=== PATIENT | female | born 1950 | race Caucasian/White ===

== ENCOUNTER 2020-09-17 13:58 | Outpatient (REF) | payer OTHER, SELFPAY ==
[2020-09-17 14:16] LABS: Glucose Urine UA NEG (NEG); Leukocyte Esterase Urine TRACE (NEG); Nitrite Urine NEG (NEG); Specific Gravity - Urine >= 1.030 (1.005-1.025); Urine Blood TRACE (NEG); Urine Ketones 5 MG/DL (NEG); Urine Protein TRACE MG/DL (NEG-TRACE)
[2020-09-17 14:21] LABS: Appearance Urine HAZY; Color Urine YELLOW
[2020-09-17 14:59] LABS: Bacteria Urine TRACE /LPF; Squamous Epithelial Cell Urine 1+ /LPF
== END 2020-09-17 13:59 | disposition home or self-care (01) ==
LOC: HO.LNP 13:58
PROVIDERS: Visit Provider Internal Medicine
DX: N30.00 Acute cystitis without hematuria (principal)
CPT/HCPCS: 81001; 87086

== ENCOUNTER 2020-09-30 10:07 | Outpatient (REF) | payer OTHER, SELFPAY ==
[2020-09-30 10:54] LABS: Glucose Urine UA NEG (NEG); Leukocyte Esterase Urine 1+ (NEG); Nitrite Urine NEG (NEG); PH 6.5 (5.0-8.0); Specific Gravity - Urine 1.015 (1.005-1.025); Urine Blood NEG (NEG); Urine Ketones NEG (NEG); Urine Protein NEG (NEG-TRACE)
[2020-09-30 10:57] LABS: Appearance Urine CLEAR; Color Urine YELLOW
[2020-09-30 11:13] LABS: Bacteria Urine 1+ /LPF; Mucus Urine 1+ /LPF; RBC Urine 0-2 /HPF (0); Squamous Epithelial Cell Urine 1+ /LPF
[2020-09-30 11:14] LABS: Amorphous Sediment Urine 2+ /LPF
== END 2020-09-30 10:08 | disposition home or self-care (01) ==
LOC: HO.LNP 10:07
PROVIDERS: Visit Provider Internal Medicine
DX: N39.0 Urinary tract infection, site not specified (principal)
CPT/HCPCS: 81001; 87086

== ENCOUNTER → 2020-11-14 08:18 | Outpatient (BNVA) | payer OTHER, SELFPAY | PROVIDERS: PCP Internal Medicine; Referring Provider Internal Medicine; Visit Provider Internal Medicine ==

== ENCOUNTER → 2020-11-19 09:03 | Outpatient (REF) | payer OTHER, SELFPAY ==
--- NOTE | 2020-11-19 11:00 | ECG_ITS ---
Hook-up date: 2020-11-19 09:24:00 Duration: 29:37:00 Test Indications: UNSPEC. ATRIAL FLUTTER Medications: 58348 QRS complexes 19 Ventricular ectopics which represent <1 % of total QRS comp. 60 Supraventricular ectopics which represent <1 % of total QRS comp. * Paced QRS complexs which represent % of total QRS comp. VENTRICULAR ECTOPY 19 Isolated 0 Bigeminal Cycles 0 Couplets 0 Runs 0 Beats in Runs * Beats LONGEST at * BPM at :: -- * Beats FASTEST at * BPM at :: -- SUPRAVENTRICULAR ECTOPY 58 Isolated 1 Couplets 0 Runs 0 Beats in Runs * Beats LONGEST at * BPM at :: -- * Beats FASTEST at * BPM at :: -- HEART RATES 47 MIN at 04:26:40 2020-11-20 68 AVG 105 MAX at 09:31:40 2020-11-19 LONGEST RR 1.3280 secs at 20:59:21 2020-11-19 S-T LEVELS Channel 1 - 128 mm at 09:24:00 2020-11-19 - 128 mm at 09:24:00 2020-11-19 Channel 2 - 128 mm at 09:24:00 2020-11-19 - 128 mm at 09:24:00 2020-11-19 Channel 3 - 128 mm at 09:24:00 2020-11-19 - 128 mm at 09:24:00 Basic rhythm Normal sinus rhythm No long pause or profound bradycardia Frequent Sinus bradycardia , 36% of time HR < 60 bpm Rare Premature atrial complexes No sustained Atrial flutter Patient reported symptom of flutter correlated with NSR Referred By: Taurus Grover Overread By: DENISA ECHEVERRIA MD
== END ==
LOC: HO.CARD 09:03
PROVIDERS: PCP Internal Medicine; Referring Provider Internal Medicine; Visit Provider Internal Medicine
DX: I48.92 Unspecified atrial flutter (principal)
CPT/HCPCS: 93226

== ENCOUNTER → 2020-12-18 08:22 | Outpatient (REF) | payer OTHER, SELFPAY ==
--- NOTE | 2020-12-18 08:26 | CA_ITS ---
Transthoracic Echocardiogram Patient (Last, First, Middle): Kiara Solano, Gender: Female Date of : 1950 Age: 70 Procedure Date: 12/18/2020 Procedure Type: Transthoracic Echocardiogram Location: OP Height: 165.1 cm Weight: 79.38 kg BSA: 1.87 m2 Heart Rate: bpm BP: 140 / 70 mmHg Vendor Management Specialist: MI Referring MD: Taurus Grover MD Symptoms: I48.92 - Unspecified atrial flutter Study Quality: Fair ECG Rhythm: Sinus Conclusions: - The left ventricular systolic function is hyperdynamic. The visually estimated ejection fraction is >70%. - There is mild calcification of the aortic valve. - No obvious valvular pathology seen on this study. Findings Left Ventricle Normal left ventricular cavity size. There is mildly increased left ventricular wall thickness. The left ventricular systolic function is hyperdynamic. The visually estimated ejection fraction is >70%. There is no evidence of regional wall motion abnormalities. E/E prime ratio is between 8 and 15 consistent with indeterminate filling pressures. Evidence suggests grade I (mild) diastolic dysfunction. Right Ventricle Normal right ventricular cavity size and systolic function. Atria Both atria are normal in size. Aortic Valve There is a normal trileaflet aortic valve. There is mild calcification of the aortic valve. There is no aortic valve stenosis. There is no aortic valve regurgitation. Mitral Valve The mitral valve appears normal. There is trace mitral valve regurgitation. There is no mitral valve stenosis. Pulmonic Valve The pulmonic valve was not well visualized. There is trace pulmonic valve regurgitation. Tricuspid Valve Normal tricuspid valve structure. There is trace tricuspid valve regurgitation. The right ventricular systolic pressure is 30 mmHg. The pulmonary artery systolic pressure is normal. Great Vessels The aortic annulus, sinuses of valsalva, and asc aorta are normal in size. Venous The inferior vena cava is normal in size and collapses greater than 50% with inspiration. Pericardium/Pleural There is no evidence of pericardial effusion. Prior Study Comparison No significant change compared to prior study dated: 12/29/2016. Recommendations, Care & Conclusions No obvious valvular pathology seen on this study. Measurements 2D Linear Measurements IVSd: 0.97 0.6-0.9/0.6-1.0 cm LVIDd: 4.12 3.9-5.3/4.2-5.9 cm LVIDd Index: 2.20 2.4-3.2/2.2-3.1 cm/m2 LVIDs: 2.85 2.0-3.6 cm LVPWd: 0.94 0.7-1.1 cm Ao Root: 3.20 2.1-3.5 cm LA Diam: 3.70 2.7-3.8/3.0-4.0 cm LAIDs Index: 1.98 1.5-2.3 cm/m2 LV Mass: 155.41 67-162/88-224 g LV Mass Index: 83.11 43-95/49-115 g/m2 LVOT Diam: 2.00 3.0+(-)1.3 cm 2D Systolic Function EF 4C: 65.50 >55% EF 2C: 64.10 >55% EF BiP: 64.40 >55% Mitral Valve MV Pk E: 0.69 MV PK A: 1.15 MV Decel Time: 298.00 E/A: 0.60 E'Lateral: 4.03 E'Medial: 5.66 E/E' Med: 12.20 E/E' Lat: 17.20 PHT: 87.00 MVA PHT: 2.53 Decel [place]: 2.32 Aortic Valve AoV Pk Juan Daniel: 1.87 AoV Mn Juan Daniel: 1.26 AoV VTI: 0.36 AoV Pk Grad: 14.00 Aov Mn Grad: 7.00 OLIVER Cont.VTI: 2.31 LVOT LVOT Pk Juan Daniel: 1.41 LVOT Mn Juan Daniel: 0.81 LVOT VTI: 0.26 LVOT Pk Grad: 8.00 LVOT Mn Grad: 3.00 LVOT Diam: 2.00 LVOT Area: 3.14 Diastolic Function MV Pk E: 0.69 MV Pk A: 1.15 E/A: 0.60 E'Medial: 5.66 E/E' Med: 12.20 E' Laterial: 4.03 E/E' Lat: 17.20 Right Ventricle TAPSE (mm): 2.73 Tricuspid Valve TR Pk Juan Daniel: 2.59 TR Pk Grad: 27.00 RA Press: 3.00 RVSP: 30.00 Great Vessels Aorta Ao Root-2D: 3.20 2.0-3.7 cm Ao Asc: 3.60 2.1-3.4 cm Ao Arch: 2.80 Updated in Other Vendor System with Status of Final Taurus Grover MD electronically signed on 12/20/2020 3:41:52 PM with status of Final
== END ==
LOC: HO.CARD 08:22
PROVIDERS: Visit Provider Internal Medicine
DX: I48.92 Unspecified atrial flutter (principal)
CPT/HCPCS: 93306

== ENCOUNTER 2020-12-19 12:35 | Outpatient (REF) | payer OTHER, SELFPAY ==
[2020-12-19 14:18] LABS: Glucose Urine UA NEG (NEG); Leukocyte Esterase Urine NEG (NEG); Nitrite Urine NEG (NEG); Specific Gravity - Urine 1.025 (1.005-1.025); Urine Blood NEG (NEG); Urine Ketones NEG (NEG); Urine Protein NEG (NEG-TRACE)
[2020-12-19 14:19] LABS: Appearance Urine HAZY; Color Urine YELLOW
== END 2020-12-19 12:36 | disposition home or self-care (01) ==
LOC: HO.10HDLNP 12:35
PROVIDERS: Visit Provider Internal Medicine
DX: N30.00 Acute cystitis without hematuria (principal)
CPT/HCPCS: 81003; 87086

== ENCOUNTER 2020-12-26 08:05 | Outpatient (REF) | payer OTHER, SELFPAY ==
--- NOTE | ~2020-12-26 | MM_ITS ---
EXAMINATION: MM SCREENING DIGITAL BREAST TOMOSYNTHESIS, BILATERAL CLINICAL INFORMATION: Screening. Asymptomatic. The lifetime risk of breast cancer based on the Tyrer-Cuzick Model is 6%. COMPARISON: Mammography: 12/22/2019, 12/16/2018, 07/31/2016 TECHNIQUE: Digital breast tomosynthesis is performed in both the craniocaudal and mediolateral oblique views along with computer-aided detection (CAD). Synthesized 2D images are generated from the tomosynthesis. Additional right MLO view is provided. FINDINGS: The breasts are almost entirely fatty (ACR BI-RADS breast composition Category a). Background stromal markings are stable. There is no interval mass or architectural abnormality. Scattered bilateral benign coarse and rim and some ductal secretory calcifications are again seen. There is a biopsy clip marker mid 3:00 left breast. The axilla and skin contours are unremarkable. MM/MM tomosynthesis screening BI IMPRESSION: No mammographic evidence of malignancy. ASSESSMENT: BI-RADS 2: Benign RECOMMENDATION: Routine annual mammography screening. This patient's information was entered into a reminder system with a target due date for their next mammogram.
== END 2020-12-26 08:06 | disposition home or self-care (01) ==
LOC: HO.MAMMO 08:05
PROVIDERS: Visit Provider Internal Medicine
DX: Z12.31 Encounter for screening mammogram for malignant neoplasm of breast (principal)
CPT/HCPCS: 77063; 77067

== ENCOUNTER → 2021-01-09 08:59 | Outpatient (REF) | payer OTHER, SELFPAY | LOC: HO.SL 08:59 | PROVIDERS: PCP Internal Medicine; Visit Provider Internal Medicine | DX: G47.33 Obstructive sleep apnea (adult) (pediatric) (principal); I48.92 Unspecified atrial flutter | CPT/HCPCS: 95806 ==

== ENCOUNTER → 2021-02-03 08:17 | Outpatient (BNVA) | payer OTHER, SELFPAY | PROVIDERS: PCP Internal Medicine; Visit Provider Internal Medicine ==

== ENCOUNTER → 2021-06-26 14:25 | Outpatient (BNVA) | payer MEDICARE, SELFPAY | PROVIDERS: PCP Internal Medicine; Referring Provider Internal Medicine; Visit Provider Nurse Practitioner Family | DX: Z13.89 Encounter for screening for other disorder (principal) ==

== ENCOUNTER 2021-06-26 15:04 | Inpatient (IN) | payer MEDICARE, SELFPAY ==
--- NOTE | 2021-06-26 | ECG_ITS ---
Test Reason : converted Blood Pressure : / mmHG Vent. Rate : 068 BPM Atrial Rate : 068 BPM P-R Int : 188 ms QRS Dur : 092 ms QT Int : 380 ms P-R-T Axes : 055 052 038 degrees QTc Int : 404 ms Normal sinus rhythm Possible Left atrial enlargement Cannot rule out Anterior infarct (cited on or before 26-JUN-2021) Abnormal ECG When compared with ECG of 26-JUN-2021 15:10, Rhythm change Referred By: Wiliam Moran Electronically Signed By:QUAN STEIN
--- NOTE | ~2021-06-26 | XR_ITS ---
EXAMINATION: XR CHEST CLINICAL INFORMATION: Palpitations COMPARISON: None TECHNIQUE: Frontal view of the chest was obtained. FINDINGS: The lungs are well expanded. There is no focal consolidation, edema, or effusion. No pneumothorax. The cardiomediastinal silhouette is within normal limits. No acute osseous abnormality. XR/XR chest 1V IMPRESSION: Clear lungs.
--- NOTE | 2021-06-26 15:09 | ECG_ITS ---
Test Reason : afib Blood Pressure : / mmHG Vent. Rate : 130 BPM Atrial Rate : 000 BPM P-R Int : 000 ms QRS Dur : 094 ms QT Int : 310 ms P-R-T Axes : 000 058 -64 degrees QTc Int : 456 ms Atrial flutter with rapid ventricular response Abnormal ECG When compared with ECG of 07-JUN-2001 17:18, Rhythm change Referred By: Generic ED Physician Electronically Signed By:QUAN STEIN
[2021-06-26 15:21] VITALS: PULSE 128; RESP 17; TEMP 37.1; O2SAT 97; BMI 27.8
--- NOTE | 2021-06-26 15:35 | ED_ITS ---
HPI - Chest Pain General Chief Complaint: Chest Pain Stated Complaint: Afib w/ rvr Time Seen by Provider: 06/26/21 15:18 Source: patient Mode of arrival: ambulatory Limitations: no limitations History of Present Illness HPI narrative: 71-year-old with history of atrial fibrillation was sent from cardiology office for patient having atrial fibrillation with RVR. Patient states having heart palpitations. Patient heart rate as high 140s on monitor. She denies any dizziness, calf pain, coughing up blood. Patient states complying with her Cardizem and Eliquis. Related Data Home Medications Medication Instructions Recorded Confirmed apixaban 5 mg tablet 5 mg PO BID 11/14/20 06/26/21 diltiazem HCl 240 mg 240 mg PO DAILY 11/14/20 06/26/21 capsule,extended release 24 hr valsartan 320 1 tab PO DAILY 06/26/21 06/26/21 mg-hydrochlorothiazide 12.5 mg tablet Allergies Allergy/AdvReac Type Severity Reaction Status Date / Time Penicillins Allergy Unknown HIVES Verified 02/03/21 08:33 Review of Systems Verdana 4l Review of Systems: Verdana 4d Heart palpitations. no Verdana 4d shortness of breath or chest pain Verdana 4d Yes all other systems are reviewed and are negative PMFSH Past Medical History Surgical History History of section Family History Family History Father No problems noted. Mother No problems noted. Social History Social History Alcohol intake: never Patient Tobacco Use Status: Never used Tobacco Use of substances other than those prescribed or required for medical reasons: No Advance Directives: No Advance Directives Information Provided: No Physical Exam Verdana 4l Vital Signs: Verdana 4d Verdana 4d Vital Signs: Verdana 4d Verdana 4Bd Last Vital Signs Verdana 4d Associate Professor Of Pathology New 4d Associate Professor Of Pathology New 4d Temp 98.2 F 06/26/21 16:40 Associate Professor Of Pathology New 4d Pulse 98 06/26/21 16:40 Associate Professor Of Pathology New 4d Resp 24 H 06/26/21 16:40 BP 152/75 H 06/26/21 16:40 Pulse Ox 96 06/26/21 16:40 BMI result Body Mass Index 27.8 Const: General: cooperative, healthy appearing, comfortable, no acute distress, well developed, alert, awake and Physically active Orientation/consciousness: patient oriented x3 HENMT: Head: Yes normal to inspection, Yes No palpable skull fracture present, Yes normocephalic, Yes atraumatic and No abrasion Eyes: General: appearance normal, both eyes and all related structures Neck: Neck: Yes normal visual inspection, Yes full ROM, Yes no lymphadenopathy, Yes no meningeal signs, Yes trachea midline, Yes supple, No anterior neck swelling and No tender Chest: Chest palpation & inspection: normal inspection of the chest and normal palpation of entire chest wall Resp: Effort & Inspection: normal respiratory effort and able to speak in complete sentences Auscultation: clear to auscultation bilaterally Cardio: Jugular venous distension: no JVD Heart sounds: S1 normal heart sound present and S2 normal heart sound present GI: Inspection: Yes normal to inspection and No abdominal wall ecchymosis Palpation (GI): Soft to palpation, not firm, nontender, no guarding and not rigid : General: No CVA tenderness and Yes no CVA tenderness Back/Spine/Pelvis: Back: no CVA tenderness, No CVA tenderness and No back tenderness Skin: General skin exam: no rashes or lesions noted and elasticity normal Neuro: General: patient oriented x3, gait normal, no meningeal signs and CN's II-XI intact bilaterally Cranial nerves: Yes CN's II-XII intact bilaterally Extrem: General: Yes normal to inspection and Yes full ROM Psych: Appearance: grossly normal, well kempt and not disheveled Course Course Course Narrative: EKG shows atrial fibrillation with RVR. Heart 140s on the monitor. Will order labs and give diltiazem 20 IV. Reevaluation(s) Reevaluation #1: Heart rate improved now between 98-110. Spoke with Dr. Grover cardiology recommends patient be admitted and placed on Cardizem drip. He also states patient should be kept NPO overnight for possible cardioversion morning Time: 18:28 MDM - Chest Pain MDM Narrative Medical decision making narrative: Atrial fibrillation with RVR Lab Data Result diagrams: 06/26/21 15:40 06/26/21 15:56 Labs: Lab Results 06/26/21 06/26/21 06/26/21 Range/Units 15:39 15:39 15:40 WBC 8.7 (4.8-10.8) X10*3/uL RBC 5.69 H (4.20-5.50) X10*6/uL Hgb 16.8 H (12.0-16.0) g/dl Hct 49.9 H (37.0-47.0) % MCV 87.7 (80.0-98.0) fL MCH 29.5 (27.0-33.0) pg MCHC 33.7 (31.0-35.0) g/dl RDW 13.6 (11.0-16.0) % Plt Count 392 (160-400) X10*3/uL MPV 9.3 L (9.4-12.3) fL Immature Gran % (Auto) 0.3 (0.0-0.4) % Neut % (Auto) 75.6 H (45-73) % Lymph % (Auto) 17.8 L (20-40) % Saline % (Auto) 5.7 (2-11) % Eos % (Auto) 0.1 (0-4) % Baso % (Auto) 0.5 (0-2) % Lymph # (Auto) 1.5 (1.2-4.9) X10*3/uL Saline # (Auto) 0.5 (0.1-1.2) X10*3/uL Eos # (Auto) 0.0 (0.0-0.4) X10*3/uL Baso # (Auto) 0.0 (0.0-0.2) X10*3/uL Abs Immat Gran (auto) 0.03 (0.00-0.03) X10*3/uL Absolute Neuts (auto) 6.5 (2.0-8.3) x10*3/uL Absolute Nucleated RBC 0.000 (0.0-0.012) X10*3/uL Nucleated RBC % (auto) 0.0 (0.0-0.2) /100WBC PT (9.9-13.0) SEC INR (0.9-1.1) Sodium (135-145) mmol/L Potassium (3.3-5.1) mmol/L Chloride (96-108) mmol/L Carbon Dioxide (22-29) mmol/L Anion Gap (12-20) BUN (9-16) mg/dL Creatinine (0.5-1.4) mg/dL Estim Creat Clear Calc Estimated GFR Random Glucose (60-115) mg/dL Calcium (8.4-10.2) mg/dL Magnesium (1.6-2.6) mg/dL Troponin I High Sens (<3.5-17.0) ng/L TSH (0.32-4.0) uIU/mL Urine Color YELLOW Urine Appearance CLEAR Urine pH 6.0 (5.0-8.0) Ur Specific [place] 1.025 (1.005-1.025) Urine Protein TRACE (NEG-TRACE) MG/DL Urine Glucose (UA) NEG (NEG) MG/DL Urine Ketones 40 (NEG) MG/DL Urine Blood NEG (NEG) Urine Nitrite NEG (NEG) Ur Leukocyte Esterase NEG (NEG) Urine RBC 0-2 (0) /HPF Urine WBC 0 (0-4) /HPF Ur Squamous Epith Cells 1+ /LPF Urine Bacteria 1+ /LPF Urine Mucus 1+ /LPF COVID-19 ([place]) Negative (Negative) COVID-19 Clin Com See Note 06/26/21 06/26/21 06/26/21 Range/Units 15:40 15:40 15:56 WBC (4.8-10.8) X10*3/uL RBC (4.20-5.50) X10*6/uL Hgb (12.0-16.0) g/dl Hct (37.0-47.0) % MCV (80.0-98.0) fL MCH (27.0-33.0) pg MCHC (31.0-35.0) g/dl RDW (11.0-16.0) % Plt Count (160-400) X10*3/uL MPV (9.4-12.3) fL Immature Gran % (Auto) (0.0-0.4) % Neut % (Auto) (45-73) % Lymph % (Auto) (20-40) % Saline % (Auto) (2-11) % Eos % (Auto) (0-4) % Baso % (Auto) (0-2) % Lymph # (Auto) (1.2-4.9) X10*3/uL Saline # (Auto) (0.1-1.2) X10*3/uL Eos # (Auto) (0.0-0.4) X10*3/uL Baso # (Auto) (0.0-0.2) X10*3/uL Abs Immat Gran (auto) (0.00-0.03) X10*3/uL Absolute Neuts (auto) (2.0-8.3) x10*3/uL Absolute Nucleated RBC (0.0-0.012) X10*3/uL Nucleated RBC % (auto) (0.0-0.2) /100WBC PT 14.3 H (9.9-13.0) SEC INR 1.3 H (0.9-1.1) Sodium 142 (135-145) mmol/L Potassium 3.8 (3.3-5.1) mmol/L Chloride 105 (96-108) mmol/L Carbon Dioxide 26 (22-29) mmol/L Anion Gap 15 (12-20) BUN 12 (9-16) mg/dL Creatinine 0.77 (0.5-1.4) mg/dL Estim Creat Clear Calc 70.2 Estimated GFR > 60 Random Glucose 112 (60-115) mg/dL Calcium 10.6 H (8.4-10.2) mg/dL Magnesium 2.0 (1.6-2.6) mg/dL Troponin I High Sens 5.0 (<3.5-17.0) ng/L TSH 1.87 (0.32-4.0) uIU/mL Urine Color Urine Appearance Urine pH (5.0-8.0) Ur Specific [place] (1.005-1.025) Urine Protein (NEG-TRACE) MG/DL Urine Glucose (UA) (NEG) MG/DL Urine Ketones (NEG) MG/DL Urine Blood (NEG) Urine Nitrite (NEG) Ur Leukocyte Esterase (NEG) Urine RBC (0) /HPF Urine WBC (0-4) /HPF Ur Squamous Epith Cells /LPF Urine Bacteria /LPF Urine Mucus /LPF COVID-19 ([place]) (Negative) COVID-19 Clin Com ECG Data ECG #1: Interpretation: Patient fibrillation with RVR. Heart rate 130. QRS 94. QTC 456. Negative STEMI Critical Care Time Critical Care Time Critical Care Time: Yes Total Critical Care Time: 60 Attestation: Atrial flutter with RVR. Cardizem IV push in Cardizem drip ordered. Case discussed with heavy coil winder recommend admission for cardioversion morning Discharge Plan Discharge Clinical Impression: Atrial flutter with rapid ventricular response Patient Disposition: Admitted As Inpatient
[2021-06-26] MEDS: dilTIAZem HCL 50 MG/10 ML VIAL 20 MG IVPUSH (15:42)
[2021-06-26 15:43] VITALS: BP 138/68; PULSE 109; RESP 17; TEMP 37.1; O2SAT 96
[2021-06-26 15:46] LABS: MANUAL DIFF FLAG NO
[2021-06-26 15:47] LABS: Appearance Urine CLEAR; Color Urine YELLOW; Glucose Urine UA NEG (NEG); Leukocyte Esterase Urine NEG (NEG); Nitrite Urine NEG (NEG); Specific Gravity - Urine 1.025 (1.005-1.025); Urine Blood NEG (NEG); Urine Ketones 40 MG/DL (NEG); Urine Protein TRACE MG/DL (NEG-TRACE)
[2021-06-26 15:48] LABS: Basophils Percent Auto 0.5 % (0-2); Eosinophils Percent Auto 0.1 % (0-4); Hematocrit 49.9 % (37.0-47.0); Hemoglobin 16.8 g/dl (12.0-16.0); Imm Gran Abs Auto 0.03 X10*3/uL (0.00-0.03); Imm Gran Pct Auto 0.3 % (0.0-0.4); Lymphocytes Absolute Auto 1.5 X10*3/uL (1.2-4.9); Lymphocytes Percent Auto 17.8 % (20-40); Mean Corpuscular HGB Conc 33.7 g/dl (31.0-35.0); Mean Corpuscular Hemoglobin 29.5 pg (27.0-33.0); Mean Corpuscular Volume 87.7 fL (80.0-98.0); Mean Platelet Volume 9.3 fL (9.4-12.3); Monocytes Absolute Auto 0.5 X10*3/uL (0.1-1.2); Monocytes Percent Auto 5.7 % (2-11); Neutrophils Absolute Auto 6.5 x10*3/uL (2.0-8.3); Neutrophils Percent Auto 75.6 % (45-73); Platelet Count 392 X10*3/uL (160-400); Red Blood Count 5.69 X10*6/uL (4.20-5.50); Red Cell Distribution Width 13.6 % (11.0-16.0); White Blood Count 8.7 X10*3/uL (4.8-10.8)
--- NOTE | 2021-06-26 15:49 | PC.NURSE ---
patient a&ox3, at bedside, ekg performed, animal impersonator applied- pt afib/flutter on animal impersonator 130s, iv inserted, labs drawn, covid swab performed, pt medicated per order, will continue to monitor.
[2021-06-26 15:53] LABS: INTERNATIONAL NORM RATIO 1.3 (0.9-1.1); Prothrombin Time 14.3 SEC (9.9-13.0)
[2021-06-26 15:54] LABS: Bacteria Urine 1+ /LPF; Mucus Urine 1+ /LPF; RBC Urine 0-2 /HPF (0); Squamous Epithelial Cell Urine 1+ /LPF; WBC Urine 0 /HPF (0-4)
[2021-06-26 16:02] LABS: COVID-19 Test Negative (Negative); IDNOW Serial# 55D5AD1C
--- NOTE | 2021-06-26 16:07 | PC.NURSE ---
pt hr has decreased to 90s-low 100s- aflutter.
--- NOTE | 2021-06-26 16:16 | PHA.MEDREC ---
Pharmacy Consult ? Medication Reconciliation Pharmacy has completed the medication reconciliation.
[2021-06-26 16:24] LABS: Anion Gap 15 (12-20); Blood Urea Nitrogen 12 mg/dL (9-16); Calcium 10.6 mg/dL (8.4-10.2); Carbon Dioxide 26 mmol/L (22-29); Chloride 105 mmol/L (96-108); Creatinine Clr Calc Pharmacy 70.2; Estimated Glomerular Filt Rate > 60; Glucose Random 112 mg/dL (60-115); Potassium 3.8 mmol/L (3.3-5.1); Sodium 142 mmol/L (135-145)
[2021-06-26 16:40] VITALS: BP 152/75; PULSE 98; RESP 24; TEMP 36.8; O2SAT 96
[2021-06-26 16:44] LABS: TSH reflex Free T4 1.87 uIU/mL (0.32-4.0)
--- NOTE | 2021-06-26 18:33 | P.HPHOSP_ITS ---
History of Present Illness Date of Service: 06/26/21 Chief Complaint: palpitations 71F presented with palpitations for about 1 day. patient has paroxysmal afib on diltiazem and eliquis. she went to cardiology office and found to be in afib with rvr. she was sent to ED with plans for cardizem infusion and JOSEF cardi oversion if not cardioverted in AM. patient denies sob, fever, chills. Review of Systems Verdana 4l Review of Systems: Verdana 4d Verdana 4d Constitutional: Denies fever, denies Chills Eyes: denies blurry vision ENT: denies sore throat CVS: palpitations Respiratory: Denies dyspnea GI: no abdominal pain : denies dysuria MSK: denies neck pain Skin: denies rash Neuro: denies specificspecific motor weakness Psych: denies suicidal ideation Endocrine: denies heat/cold intolerance Hematologic: denies easy bleeding Allergy: denies hives PMFSH Medical History (Updated 06/26/21 @ 18:35 by Arnulfo Hernandez MD) Atrial flutter with rapid ventricular response Essential hypertension Paroxysmal atrial flutter Family History Father No problems noted. Mother No problems noted. Surgical History History of section Social History Alcohol intake: never Patient Tobacco Use Status: Never used Tobacco Use of substances other than those prescribed or required for medical reasons: No Advance Directives: No Advance Directives Information Provided: No Meds Allergies Allergy/AdvReac Type Severity Reaction Status Date / Time Penicillins Allergy Unknown HIVES Verified 02/03/21 08:33 Active Medications: Current Medications Apixaban (Apixaban 5 Mg Tablet) 5 mg PO BID [facility] Diltiazem HCl 125 mg/ Sodium (Chloride) 125 mls @ 0 mls/hr IVCONT .Q0M AYSHA; Protocol Non-Formulary Medication (Valsartan-Hydrochlorothiazide) 1 tab PO DAILY [facility] Pharmacy Consult (Consult Rx Perform Med Rec) 1 each MISCELLANE ONCE PRN PRN Reason: Consult order Sodium Chloride (0.9 % Sodium Chloride Flush 3 Ml Syringe) 3 ml IVFLUSH QSHIFT [facility] Home Medications Medication Instructions Recorded Confirmed Last Taken Type apixaban 5 mg 5 mg PO BID 11/14/20 06/26/21 06/26/21 History tablet diltiazem HCl 240 240 mg PO DAILY 11/14/20 06/26/21 06/26/21 History mg capsule,extended release 24 hr valsartan 320 1 tab PO DAILY 06/26/21 06/26/21 06/26/21 History mg-hydrochlorothia zide 12.5 mg tablet Physical Exam Verdana 4l Vital Signs and Narrative: Verdana 4d Verdana 4d Vital Signs: Verdana 4d Verdana 4Bd Last Vital Signs Verdana 4d [place] Attacher New 4d [place] Attacher New 4d Temp 98.2 F 06/26/21 16:40 [place] Attacher New 4d Pulse 98 06/26/21 16:40 [place] Attacher New 4d Resp 24 H 06/26/21 16:40 BP 152/75 H 06/26/21 16:40 Pulse Ox 96 06/26/21 16:40 BMI result Body Mass Index 27.8 General: no acute distress HEENT: atraumatic Neck: normal to visual inspection CVS: S1, S2, rapid irregular Resp: CTA bilateral Chest: non tender GI: soft, non tender, non distended : no CVA tenderness Skin: no rashes Extremities: no edema Neuro: Oriented X3, grossly intact Psych: cooperative Results Labs CBC and Chem 7: 06/26/21 15:40 06/26/21 15:56 Labs: Laboratory Results - last 24 hr 06/26/21 06/26/21 06/26/21 15:39 15:39 15:40 MCV 87.7 MCH 29.5 MCHC 33.7 RDW 13.6 Plt Count 392 MPV 9.3 L Immature Gran % (Auto) 0.3 Neut % (Auto) 75.6 H Lymph % (Auto) 17.8 L [place] % (Auto) 5.7 Eos % (Auto) 0.1 Baso % (Auto) 0.5 Lymph # (Auto) 1.5 [place] # (Auto) 0.5 Eos # (Auto) 0.0 Baso # (Auto) 0.0 Abs Immat Gran (auto) 0.03 Absolute Neuts (auto) 6.5 Absolute Nucleated RBC 0.000 Nucleated RBC % (auto) 0.0 PT INR Anion Gap Estim Creat Clear Calc Estimated GFR Random Glucose Calcium Magnesium TSH Urine Color YELLOW Urine Appearance CLEAR Urine pH 6.0 Ur Specific [place] 1.025 Urine Protein TRACE Urine Glucose (UA) NEG Urine Ketones 40 Urine Blood NEG Urine Nitrite NEG Ur Leukocyte Esterase NEG Urine RBC 0-2 Urine WBC 0 Ur Squamous Epith Cells 1+ Urine Bacteria 1+ Urine Mucus 1+ COVID-19 ([place]) Negative COVID-19 Clin Com See Note 06/26/21 06/26/21 15:40 15:56 MCV MCH MCHC RDW Plt Count MPV Immature Gran % (Auto) Neut % (Auto) Lymph % (Auto) [place] % (Auto) Eos % (Auto) Baso % (Auto) Lymph # (Auto) [place] # (Auto) Eos # (Auto) Baso # (Auto) Abs Immat Gran (auto) Absolute Neuts (auto) Absolute Nucleated RBC Nucleated RBC % (auto) PT 14.3 H INR 1.3 H Anion Gap 15 Estim Creat Clear Calc 70.2 Estimated GFR > 60 Random Glucose 112 Calcium 10.6 H Magnesium 2.0 TSH 1.87 Urine Color Urine Appearance Urine pH Ur Specific [place] Urine Protein Urine Glucose (UA) Urine Ketones Urine Blood Urine Nitrite Ur Leukocyte Esterase Urine RBC Urine WBC Ur Squamous Epith Cells Urine Bacteria Urine Mucus COVID-19 ([place]) COVID-19 Clin Com Imaging Radiologist's Impressions: Impressions Chest X-Ray 06/26/21 15:55 IMPRESSION: Clear lungs. Assessment and Plan (1) Atrial flutter with rapid ventricular response: Status: Acute Plan 71F presented with palpitations. paroxysmal afib with rvr diltiazem infusion eliquis npo after midnight for potential josef/cv cardio eval htn valsartan, hctz Quality Stroke Does the patient have a stroke diagnosis?: No VTE Prior VTE?: No VTE Risk Level:: Medical - moderate - high VTE Device Contraindication: Treatment Not Indicated VTE Drug Contraindication: N/A - Med Ordered
--- NOTE | 2021-06-26 20:17 | PC.NURSE ---
patients satellite project site monitor is afib/flutter in 70s, tiger text dr luciano as a cardizem drip is ordered, it is being held at this time per his verbal order
[2021-06-26] MEDS: Apixaban 5 MG TABLET PO (20:22)
[2021-06-26 20:23] VITALS: BP 143/76; PULSE 76; RESP 18; O2SAT 97
--- NOTE | 2021-06-26 21:00 | PC.NURSE ---
patient was noted to have converted on the monitoring engineer, notified Dr. Moran, repeat ekg was okd to order via tiger text, will notify tech to repeat ekg.
--- NOTE | 2021-06-26 21:49 | PC.NURSE ---
patient was to be NPO after midnight and she converted on her own- ekg has been performed pt is nsr, Dr. Ramirez was tiger messaged the updated ekg as well as requested to change the patient to a regular diet. No new order has been given at this time.
--- NOTE | 2021-06-26 22:42 | PC.NURSE ---
NPO DIET patients diet was not changed despite requesting provider- pt will be held NPO through the night per order.
[2021-06-27 00:49] VITALS: BP 111/48; PULSE 63; RESP 18; O2SAT 96
--- NOTE | 2021-06-27 00:51 | PC.NURSE ---
Pt asleep on stretcher in NAD, breathing with ease on RA, VSS. Pt SB-NSR on monitoring and evaluation advisor. This RN confirmed with Dr Moran that pt is to remain NPO despite no longer being in afib with RVR. Pt stretcher is in lowest locked position, rails raised, call begum within reach, personal belongings within reach.
--- NOTE | 2021-06-27 01:38 | PC.NURSE ---
Report given to EDEDEE Mcpherson in Overflow. Pt to be transported on tele to Overflow unit
[2021-06-27 02:07] VITALS: BP 140/56; PULSE 66; RESP 16; TEMP 36.6; O2SAT 97
--- NOTE | 2021-06-27 02:17 | PC.NURSE ---
Patient transported from ed to overflow bed 1. Patient alert and oriented x3, denies any pain or discomfort, denies nausea at this time, L/s clear, vitals stable. Patient educated on diet remaining npo at this time until further notice. Call begum within reach.
[2021-06-27 06:55] LABS: Hematocrit 46.3 % (37.0-47.0); Hemoglobin 15.2 g/dl (12.0-16.0); Mean Corpuscular HGB Conc 32.8 g/dl (31.0-35.0); Mean Corpuscular Hemoglobin 29.1 pg (27.0-33.0); Mean Corpuscular Volume 88.7 fL (80.0-98.0); Mean Platelet Volume 9.1 fL (9.4-12.3); Platelet Count 288 X10*3/uL (160-400); Red Blood Count 5.22 X10*6/uL (4.20-5.50); Red Cell Distribution Width 13.8 % (11.0-16.0); White Blood Count 6.9 X10*3/uL (4.8-10.8)
[2021-06-27 07:33] VITALS: BP 119/56; PULSE 63; RESP 17; O2SAT 96
[2021-06-27] MEDS: Apixaban 5 MG TABLET PO (08:04)
[2021-06-27] MEDS: Valsartan 320 MG TABLET PO (08:05)
[2021-06-27] MEDS: hydroCHLOROthiazide 12.5 MG TABLET PO (08:05)
[2021-06-27] MEDS: 0.9 % Sodium Chloride Flush 3 ML SYRINGE IVFLUSH (08:06)
--- NOTE | 2021-06-27 08:12 | PC.NURSE ---
pt alert and oriented, skin pwd, respirations even and unlabored, ls clear, denies any pain at this time vs stable, normal sinus on the monitor.
[2021-06-27 08:33] LABS: Anion Gap 16 (12-20); Blood Urea Nitrogen 14 mg/dL (9-16); Calcium 9.8 mg/dL (8.4-10.2); Carbon Dioxide 25 mmol/L (22-29); Chloride 108 mmol/L (96-108); Creatinine Clr Calc Pharmacy 70.2; Estimated Glomerular Filt Rate > 60; Glucose Fasting 92 mg/dL (60-99); Sodium 145 mmol/L (135-145)
--- NOTE | 2021-06-27 08:49 | PC.NURSE ---
dr kumar cardiology at bedside, plan for the pt to go home today
--- NOTE | 2021-06-27 08:51 | P.CONCA_ITS ---
History of Present Illness History of Present Illness Date of Service: 06/27/21 Chief complaint: Afib w/ rvr Narrative: This is a cardiology consultation regarding atrial fibrillation with rapid rate. She was actually seen by our nurse practitioner in the office because of chest pain symptoms and she was found to be atrial flutter/fibrillation with rapid rate and sent to the emergency room. It seems that she got IV Cardizem and now she is back in normal sinus rhythm. She describes a feeling of an ache type sensation in the chest for the last few days most likely from the rapid ve ntricular rate. She does not have known coronary artery disease. Today she states that she is feeling back to her normal self. Otherwise she is trying to lead a fairly healthy lifestyle. Review of Systems Verdana 4l Review of Systems: Verdana 4d Yes all other systems are reviewed and are negative Verdana 4l Cardiovascular: Verdana 4d Verdana 4d Cardiovascular: Verdana 4d Reports as per HPI, Reports no additional cardiovascular complaints, Denies acrocyanosis, Denies cool extremities, Denies painful fingertips, Reports chest pain, Reports chest pain at rest, Denies diaphoresis, DeniesDenies syncope, Denies irregular heart rhythm , Denies claudication, Denies leg edema, Denies lightheadedness, Denies palpitations and Denies dyspnea Respiratory: Respiratory: Denies dyspnea Neurologic: Denies syncope Endocrine: Endocrine: Denies palpitations [facility] Past Medical History Medical History (Updated 06/27/21 @ 09:57 by Taurus Grover MD) Atrial flutter with rapid ventricular response Essential hypertension Paroxysmal atrial flutter Family History Family History Father No problems noted. Mother No problems noted. Surgical History Surgical History History of section Social History Social History Alcohol intake: never Patient Tobacco Use Status: Never used Tobacco Use of substances other than those prescribed or required for medical reasons: No Advance Directives: No Advance Directives Information Provided: No Meds Allergies Allergy/AdvReac Type Severity Reaction Status Date / Time Penicillins Allergy Unknown HIVES Verified 02/03/21 08:33 Active Medications: Current Medications Apixaban (Apixaban 5 Mg Tablet) 5 mg PO BID [facility] Last Admin: 06/27/21 08:04 Dose: 5 mg Documented by: Hydrochlorothiazide (Hydrochlorothiazide 12.5 Mg Tablet) 12.5 mg PO DAILY [facility] Last Admin: 06/27/21 08:05 Dose: 12.5 mg Documented by: Diltiazem HCl 125 mg/ Sodium (Chloride) 125 mls @ 0 mls/hr IVCONT .Q0M [facility]; Protocol Pharmacy Consult (Consult Rx Perform Med Rec) 1 each MISCELLANE ONCE PRN PRN Reason: Consult order Sodium Chloride (0.9 % Sodium Chloride Flush 3 Ml Syringe) 3 ml IVFLUSH QSHIFT [facility] Last Admin: 06/27/21 08:06 Dose: 3 ml Documented by: Valsartan (Valsartan 320 Mg Tablet) 320 mg PO DAILY [facility] Last Admin: 06/27/21 08:05 Dose: 320 mg Documented by: Home Medications Medication Instructions Recorded Confirmed Last Taken Type apixaban 5 mg 5 mg PO BID 11/14/20 06/26/21 06/26/21 History tablet diltiazem HCl 240 240 mg PO DAILY 11/14/20 06/26/21 06/26/21 History mg capsule,extended release 24 hr valsartan 320 1 tab PO DAILY 06/26/21 06/26/21 06/26/21 History mg-hydrochlorothia zide 12.5 mg tablet Physical Exam Verdana 4l Vital Signs: Verdana 4d Verdana 4d Vital Signs: Verdana 4d Verdana 4Bd Last Vital Signs Verdana 4d Spin Tank Tender New 4d Spin Tank Tender New 4d Temp 97.9 F 06/27/21 02:07 Spin Tank Tender New 4d Pulse 63 06/27/21 07:33 Spin Tank Tender New 4d Resp 17 06/27/21 07:33 BP 119/56 L 06/27/21 07:33 Pulse Ox 96 06/27/21 07:33 BMI result Body Mass Index 27.8 Const: General: no acute distress HENMT: Other: Unremarkable Neck: Neck: Yes normal visual inspection Chest: Chest palpation & inspection: normal inspection of the chest Resp: Auscultation: no crackles and no wheezes Cardio: Palpation: normal PMI Heart sounds: S1 normal heart sound present, S2 normal heart sound present, no gallops, no murmurs and no rubs GI: Palpation (GI): Soft to palpation Back/Spine/Pelvis: Other: unremarkable Skin: Lesions: other Neuro: Cranial nerves: Yes Other cranial nerve findings present Extrem: General: Yes other Psych: Mental Status: other Objective Labs and Meds Result diagrams: 06/27/21 06:15 06/27/21 06:15 Lab results: Laboratory Results - last 24 hr 06/26/21 06/26/21 06/26/21 15:39 15:39 15:40 WBC 8.7 RBC 5.69 H Hgb 16.8 H Hct 49.9 H MCV 87.7 MCH 29.5 MCHC 33.7 RDW 13.6 Plt Count 392 MPV 9.3 L Immature Gran % (Auto) 0.3 Neut % (Auto) 75.6 H Lymph % (Auto) 17.8 L [place] % (Auto) 5.7 Eos % (Auto) 0.1 Baso % (Auto) 0.5 Lymph # (Auto) 1.5 [place] # (Auto) 0.5 Eos # (Auto) 0.0 Baso # (Auto) 0.0 Abs Immat Gran (auto) 0.03 Absolute Neuts (auto) 6.5 Absolute Nucleated RBC 0.000 Nucleated RBC % (auto) 0.0 PT INR Sodium Potassium Chloride Carbon Dioxide Anion Gap BUN Creatinine Estim Creat Clear Calc Estimated GFR Random Glucose Fasting Glucose Calcium Magnesium Troponin I High Sens TSH Urine Color YELLOW Urine Appearance CLEAR Urine pH 6.0 Ur Specific [place] 1.025 Urine Protein TRACE Urine Glucose (UA) NEG Urine Ketones 40 Urine Blood NEG Urine Nitrite NEG Ur Leukocyte Esterase NEG Urine RBC 0-2 Urine WBC 0 Ur Squamous Epith Cells 1+ Urine Bacteria 1+ Urine Mucus 1+ COVID-19 ([place]) Negative COVID-19 Clin Com See Note 06/26/21 06/26/21 06/26/21 15:40 15:40 15:56 WBC RBC Hgb Hct MCV MCH MCHC RDW Plt Count MPV Immature Gran % (Auto) Neut % (Auto) Lymph % (Auto) [place] % (Auto) Eos % (Auto) Baso % (Auto) Lymph # (Auto) [place] # (Auto) Eos # (Auto) Baso # (Auto) Abs Immat Gran (auto) Absolute Neuts (auto) Absolute Nucleated RBC Nucleated RBC % (auto) PT 14.3 H INR 1.3 H Sodium 142 Potassium 3.8 Chloride 105 Carbon Dioxide 26 Anion Gap 15 BUN 12 Creatinine 0.77 Estim Creat Clear Calc 70.2 Estimated GFR > 60 Random Glucose 112 Fasting Glucose Calcium 10.6 H Magnesium 2.0 Troponin I High Sens 5.0 TSH 1.87 Urine Color Urine Appearance Urine pH Ur Specific [place] Urine Protein Urine Glucose (UA) Urine Ketones Urine Blood Urine Nitrite Ur Leukocyte Esterase Urine RBC Urine WBC Ur Squamous Epith Cells Urine Bacteria Urine Mucus COVID-19 ([place]) COVID-19 Clin Com 06/27/21 06/27/21 06:15 06:15 WBC 6.9 RBC 5.22 Hgb 15.2 Hct 46.3 MCV 88.7 MCH 29.1 MCHC 32.8 RDW 13.8 Plt Count 288 D MPV 9.1 L Immature Gran % (Auto) Neut % (Auto) Lymph % (Auto) [place] % (Auto) Eos % (Auto) Baso % (Auto) Lymph # (Auto) [place] # (Auto) Eos # (Auto) Baso # (Auto) Abs Immat Gran (auto) Absolute Neuts (auto) Absolute Nucleated RBC 0.000 Nucleated RBC % (auto) 0.0 PT INR Sodium 145 Potassium 4.0 Chloride 108 Carbon Dioxide 25 Anion Gap 16 BUN 14 Creatinine 0.77 Estim Creat Clear Calc 70.2 Estimated GFR > 60 Random Glucose Fasting Glucose 92 Calcium 9.8 D Magnesium 2.0 Troponin I High Sens TSH Urine Color Urine Appearance Urine pH Ur Specific [place] Urine Protein Urine Glucose (UA) Urine Ketones Urine Blood Urine Nitrite Ur Leukocyte Esterase Urine RBC Urine WBC Ur Squamous Epith Cells Urine Bacteria Urine Mucus COVID-19 ([place]) COVID-19 Clin Com ECG Interpretation: Admission EKG with suggestion of atrial flutter with rapid rate but could also be fibrillation. Rate 130/Min. Imaging Radiologist's impression: Impressions Chest X-Ray 06/26/21 15:55 IMPRESSION: Clear lungs. Assessment and Plan (1) Atrial flutter with rapid ventricular response: Status: Acute (2) Chest pain: Qualifiers: Chest pain type: precordial pain Qualified Code(s): R07.2 - Precordial pain Status: Acute (3) Essential hypertension: Status: Acute Plan High sensitivity troponins are within normal limits. Hence there is no evidence of myocardial infarction at this time. She is back to normal self. She received IV Cardizem as today but otherwise no drip or any other measures. Continue home diltiazem. We can add Toprol-XL 50 mg daily. If there is any blood pressure issue, we can cut back on the valsartan/hydrochlorothiazide dosing. Otherwise, discharge planning. Will try to get an outpatient stress test due to complaints of chest pain with rapid rates. Procedures Date of Service Date of Service: 06/27/21
--- NOTE | 2021-06-27 09:23 | P.DS_ITS ---
DS: Providers Provider Date of Service: 06/27/21 Date of admission: 06/26/21 18:31 Primary care physician: Alverto Baker MD Consults: 06/26/21 18:30 Consult to Cardiology Routine Consulting Provider: Taurus Grover Reason for consultation: afib rvr DS: Diagnosis Discharge Diagnosis (1) Atrial flutter with rapid ventricular response: Status: Acute DS: Summary Hospital Course Hospital Course: patient was admitted for afib with rvr. plan was for josef, cardioversion in AM. she was started on cardizem infusion, however, overnight patient converted to NSR. she will be discharged home, toprol 50mg daily added to home meds. continue with diltiazem 240mg daily and eliquis. Time Spent with Patient Time attestation: Total time spent providing and/or coordinating discharge services: Discharge coordination time: Greater than 30 minutes Quality: Stroke Does the patient have a stroke diagnosis?: No Physical Exam Verdana 4l Vital Signs: Verdana 4d Verdana 4d Vital Signs: Verdana 4d Verdana 4Bd Last Vital Signs Verdana 4d Occ Med Physician New 4d Occ Med Physician New 4d Temp 97.9 F 06/27/21 02:07 Occ Med Physician New 4d Pulse 63 06/27/21 07:33 Occ Med Physician New 4d Resp 17 06/27/21 07:33 BP 119/56 L 06/27/21 07:33 Pulse Ox 96 06/27/21 07:33 BMI result Body Mass Index 27.8 General: AO X 3, no acute distress Resp: CTA bilateral, no accessory muscles used CVS: S1,S2,RRR GI: soft, non tender, non distended Neuro: motor grossly intact, alert Psych: appropriate affect, appropriate insight DS: Data Data Completed and Pending Labs on day of discharge: Laboratory Results - last 24 hr 06/26/21 06/26/21 06/26/21 15:39 15:39 15:40 WBC 8.7 RBC 5.69 H Hgb 16.8 H Hct 49.9 H MCV 87.7 MCH 29.5 MCHC 33.7 RDW 13.6 Plt Count 392 MPV 9.3 L Immature Gran % (Auto) 0.3 Neut % (Auto) 75.6 H Lymph % (Auto) 17.8 L [place] % (Auto) 5.7 Eos % (Auto) 0.1 Baso % (Auto) 0.5 Lymph # (Auto) 1.5 [place] # (Auto) 0.5 Eos # (Auto) 0.0 Baso # (Auto) 0.0 Abs Immat Gran (auto) 0.03 Absolute Neuts (auto) 6.5 Absolute Nucleated RBC 0.000 Nucleated RBC % (auto) 0.0 PT INR Sodium Potassium Chloride Carbon Dioxide Anion Gap BUN Creatinine Estim Creat Clear Calc Estimated GFR Random Glucose Fasting Glucose Calcium Magnesium Troponin I High Sens TSH Urine Color YELLOW Urine Appearance CLEAR Urine pH 6.0 Ur Specific [place] 1.025 Urine Protein TRACE Urine Glucose (UA) NEG Urine Ketones 40 Urine Blood NEG Urine Nitrite NEG Ur Leukocyte Esterase NEG Urine RBC 0-2 Urine WBC 0 Ur Squamous Epith Cells 1+ Urine Bacteria 1+ Urine Mucus 1+ COVID-19 ([place]) Negative COVID-19 Clin Com See Note 06/26/21 06/26/21 06/26/21 15:40 15:40 15:56 WBC RBC Hgb Hct MCV MCH MCHC RDW Plt Count MPV Immature Gran % (Auto) Neut % (Auto) Lymph % (Auto) [place] % (Auto) Eos % (Auto) Baso % (Auto) Lymph # (Auto) [place] # (Auto) Eos # (Auto) Baso # (Auto) Abs Immat Gran (auto) Absolute Neuts (auto) Absolute Nucleated RBC Nucleated RBC % (auto) PT 14.3 H INR 1.3 H Sodium 142 Potassium 3.8 Chloride 105 Carbon Dioxide 26 Anion Gap 15 BUN 12 Creatinine 0.77 Estim Creat Clear Calc 70.2 Estimated GFR > 60 Random Glucose 112 Fasting Glucose Calcium 10.6 H Magnesium 2.0 Troponin I High Sens 5.0 TSH 1.87 Urine Color Urine Appearance Urine pH Ur Specific [place] Urine Protein Urine Glucose (UA) Urine Ketones Urine Blood Urine Nitrite Ur Leukocyte Esterase Urine RBC Urine WBC Ur Squamous Epith Cells Urine Bacteria Urine Mucus COVID-19 ([place]) COVID-19 Clin Com 06/27/21 06/27/21 06:15 06:15 WBC 6.9 RBC 5.22 Hgb 15.2 Hct 46.3 MCV 88.7 MCH 29.1 MCHC 32.8 RDW 13.8 Plt Count 288 D MPV 9.1 L Immature Gran % (Auto) Neut % (Auto) Lymph % (Auto) [place] % (Auto) Eos % (Auto) Baso % (Auto) Lymph # (Auto) [place] # (Auto) Eos # (Auto) Baso # (Auto) Abs Immat Gran (auto) Absolute Neuts (auto) Absolute Nucleated RBC 0.000 Nucleated RBC % (auto) 0.0 PT INR Sodium 145 Potassium 4.0 Chloride 108 Carbon Dioxide 25 Anion Gap 16 BUN 14 Creatinine 0.77 Estim Creat Clear Calc 70.2 Estimated GFR > 60 Random Glucose Fasting Glucose 92 Calcium 9.8 D Magnesium 2.0 Troponin I High Sens TSH Urine Color Urine Appearance Urine pH Ur Specific [place] Urine Protein Urine Glucose (UA) Urine Ketones Urine Blood Urine Nitrite Ur Leukocyte Esterase Urine RBC Urine WBC Ur Squamous Epith Cells Urine Bacteria Urine Mucus COVID-19 ([place]) COVID-19 Clin Com Discharge Plan Discharge Patient Disposition: Home, Self-Care Discharge Diagnosis: afib Referrals: Alverto Baker MD [Primary Care Provider] - 1 Week Discharge Medications: New metoprolol succinate 50 mg Tablet Extended Release 24 Hr 50 mg PO DAILY Qty: 30 0RF Protocol: Hold for SBP/HR < HOLD for SBP < : 90 HOLD for HR < : 60 Continued valsartan-hydrochlorothiazide 320-12.5 mg tablet 1 tab PO DAILY 0RF apixaban 5 mg tablet 5 mg PO BID 0RF diltiazem HCl 240 mg capsule,extended release 24hr 240 mg PO DAILY 0RF Discharge Orders: Discharge Order (Routine); Ordered 06/27/21 Ordered By: Arnulfo Hernandez Diet: advance to usual diet Activity on Discharge: As tolerated Stand Alone Forms: Patient Portal Discharge page Care Plan Goals: prevent afib Health Concerns: afib Plan of Treatment: add toprol Assessment: see above
== END 2021-06-27 10:16 | disposition home or self-care (01) | DRG 310 ==
LOC: HO.ED 18:30 → HO.EDOVER 18:40
PROVIDERS: Emergency Medicine; Physician Assistant; Admitting Provider Internal Medicine; Emergency Provider Emergency Medicine Emergency Medical Services; PCP Internal Medicine; Visit Provider Internal Medicine
DX: I48.0 Paroxysmal atrial fibrillation (principal); I10 Essential (primary) hypertension; R07.9 Chest pain, unspecified; Z20.822 Contact with and (suspected) exposure to COVID-19; Z88.0 Allergy status to penicillin; Z79.01 Long term (current) use of anticoagulants; Z79.899 Other long term (current) drug therapy
CPT/HCPCS: 36415; 71045; 80048; 81001; 83735; 84443; 84484; 85025; 85027; 85610; 87635; 93005; 96365; 96375; 99212; 99285; 99291

== ENCOUNTER → 2021-07-02 14:17 | Outpatient (BNVA) | payer MEDICARE, SELFPAY | PROVIDERS: PCP Internal Medicine; Referring Provider Internal Medicine; Visit Provider Internal Medicine | DX: I48.92 Unspecified atrial flutter (principal); I10 Essential (primary) hypertension; R07.2 Precordial pain; G47.33 Obstructive sleep apnea (adult) (pediatric) | CPT/HCPCS: 99212 ==

== ENCOUNTER → 2021-07-09 08:28 | Outpatient (REF) | payer MEDICARE, SELFPAY ==
--- NOTE | ~2021-07-09 | NM_ITS ---
Myocardial perfusion study Indication: Precordial chest pain to evaluate for myocardial ischemia Technique: The patient was brought in for a Lexiscan perfusion study on 07/09/2021. Patient performed low-level exercise and was injected 0.4 mg of Lexiscan intravenously. Within a minute of injection, 25 mCi of sestamibi was given intravenously. Images were obtained using the SPECT gamma camera interlaced with the gating device. Images were obtained in supine position. Resting perfusion study was performed on 07/10/2021. Patient was administered 25 mCi of sestamibi intravenously at rest. Images were then obtained in supine position. Images obtained with and without CT attenuation. Total DLP 125 mGy-cm. Images were processed with the software and compared side to side in short axis, horizontal long axis and vertical long axis views. Findings: The stress perfusion study showed non attenuated images show mildly reduced uptake in the apical and adjacent inferoapical as well as distal lateral wall of the LV myocardium. There is some thinning of inferolateral wall noted. Remainder of the LV myocardium normally perfused. Attenuation corrected images show moderately reduced uptake in the apex suggesting apical wall of the LV myocardium.. The gated study shows normal LV systolic function with calculated LVEF of 62%. LV cavity is normal size. The gated study shows normal systolic wall thickening and contraction of segments. Resting study shows both non attenuated and attenuated corrected images show some improvement in uptake in the inferoapical wall of the LV myocardium.. Gating at rest reveals normal systolic wall motion with ejection fraction at 61%. The findings are consistent with equivocal finding with small area of mildly reversible defect of the inferoapical wall. Remainder of the wall reduced uptake are fixed with normal wall motion suggestive attenuation artifact.. NM/NM cardiolite stress test Impression: 1. Myocardial perfusion imaging study shows equivocal area of mild intensity inferoapical ischemia 2. Gated LVEF is 62% 3. Transient ischemic dilatation not present EKG is nondiagnostic for ischemia
--- NOTE | 2021-07-09 08:32 | HM_ITS ---
Conclusion: 1. Baseline rhythm is sinus rhythm with average heart rate 53 beats per minute with frequent sinus bradycardia 2. No significant pauses noted 3. Intermittent atrial fibrillation with total burden of 3.63% with longest episode lasting 2 hours and 35 minutes 4. Rare PACs noted 5. No patient reported events MTDD
--- NOTE | 2021-07-09 08:32 | CA_ITS ---
Acquisition Time: 2021-07-09 08:32:22 Total Exercise Time: 00:02:00 Test Indications: Abnormal ECG Medications: METOPROLOL VALSARTAN/HCTZ APIXABAN DILTIAZEM Protocol: LEXISCAN Max HR: 079 BPM 52% of Pred: 151 BPM Max BP: 144/068 mmHG Max Work Load: 1.0 METS Test originally ordered as an exercise nuclear stress test. Pt was very anxious about having test done. After IV insertion and before startting exercise she reported feeling lightheaded. pulse dropped to a low of 47 from the 50s and BP dropped to 88/50 from 142/ 64. She was placed in supine position, given 250 cc Normal Saline and instructed to move her legs. BP quickly improved and patient allowed to rest in supine position for several minutes. Dr Grover informed. Testing changed to a pharmacological stress test. Pharmacological stress test with Lexiscan injection, while stting and kicking her legs, without anginal symptoms, without arrythma, with normotensive response to injection, with nondiagnostic EKG for ischemia. In recovery she was given Aminophylline 75mg IVP to reverse Lexiscan. Nuclear images pending. Test reviewed with Dr Cunningham. Referred By: Taurus Grover Overread By: VISH FISCHER
== END ==
LOC: HO.CARD 08:28
PROVIDERS: Visit Provider Internal Medicine
DX: R07.2 Precordial pain (principal); I48.92 Unspecified atrial flutter
CPT/HCPCS: 78452; 93017; 93242; A9500; J0280; J2785

== ENCOUNTER 2021-08-25 10:52 | Outpatient (REF) | payer MEDICARE, SELFPAY ==
[2021-08-25 11:39] LABS: Estimated Average Glucose 111 mg/dL; Hemoglobin A1C 148.7067 umol/L; Hemoglobin A1c % 5.5 %
[2021-08-25 11:46] LABS: Alanine Aminotransferase 19 U/L (0-31); Albumin Level 3.9 g/dL (3.5-5.0); Alkaline Phosphatase 78 U/L (39-117); Aspartate Amino Transferase 17 U/L (5-31); Bilirubin Direct 0.3 mg/dL (0.0-0.5); Bilirubin Total 0.7 mg/dL (0.0-1.0); Cholesterol 229 mg/dL; Glucose Fasting 106 mg/dL (60-99); HDL Cholesterol 61 mg/dL; LDL Cholesterol Calculated 145 mg/dl; Total Protein 6.5 g/dL (6.5-8.0); Triglycerides 118 mg/dL
[2021-08-25 11:50] LABS: Reflex LDLD? No
== END 2021-08-25 10:53 | disposition home or self-care (01) ==
LOC: HO.LNP 10:52
PROVIDERS: Visit Provider Internal Medicine
DX: R73.03 Prediabetes (principal); E78.00 Pure hypercholesterolemia, unspecified
CPT/HCPCS: 80061; 80076; 82947; 83036

== ENCOUNTER 2021-09-10 10:09 | Outpatient (REF) | payer MEDICARE, SELFPAY ==
[2021-09-10 11:18] LABS: Anion Gap 12 (12-20); Blood Urea Nitrogen 11 mg/dL (9-16); Calcium 9.9 mg/dL (8.4-10.2); Carbon Dioxide 28 mmol/L (22-29); Chloride 103 mmol/L (96-108); Estimated Glomerular Filt Rate > 60; Glucose Random 127 mg/dL (60-115); Potassium 3.9 mmol/L (3.3-5.1); Sodium 139 mmol/L (135-145)
== END 2021-09-10 10:10 | disposition home or self-care (01) ==
LOC: HO.LAB 10:09
PROVIDERS: PCP Internal Medicine; Visit Provider Nurse Practitioner Family
DX: R93.1 Abnormal findings on diagnostic imaging of heart and coronary circulation (principal)
CPT/HCPCS: 36415; 80048

== ENCOUNTER 2021-09-22 10:17 | Outpatient (REF) | payer MEDICARE, SELFPAY ==
[2021-09-22 10:19] LABS: MANUAL DIFF FLAG NO
[2021-09-22 10:30] LABS: Basophils Percent Auto 0.4 % (0-2); Eosinophils Absolute Auto 0.2 X10*3/uL (0.0-0.4); Eosinophils Percent Auto 2.1 % (0-4); Hematocrit 46.7 % (37.0-47.0); Hemoglobin 14.9 g/dl (12.0-16.0); Imm Gran Abs Auto 0.02 X10*3/uL (0.00-0.03); Imm Gran Pct Auto 0.3 % (0.0-0.4); Lymphocytes Absolute Auto 2.5 X10*3/uL (1.2-4.9); Lymphocytes Percent Auto 34.6 % (20-40); Mean Corpuscular HGB Conc 31.9 g/dl (31.0-35.0); Mean Corpuscular Hemoglobin 29.1 pg (27.0-33.0); Mean Corpuscular Volume 91.2 fL (80.0-98.0); Mean Platelet Volume 10.1 fL (9.4-12.3); Monocytes Absolute Auto 0.6 X10*3/uL (0.1-1.2); Monocytes Percent Auto 8.4 % (2-11); Neutrophils Absolute Auto 3.9 x10*3/uL (2.0-8.3); Neutrophils Percent Auto 54.2 % (45-73); Platelet Count 325 X10*3/uL (160-400); Red Blood Count 5.12 X10*6/uL (4.20-5.50); Red Cell Distribution Width 13.6 % (11.0-16.0); White Blood Count 7.1 X10*3/uL (4.8-10.8)
[2021-09-22 11:15] LABS: Vitamin D 25-OH Total 39.4 ng/mL (>30)
== END 2021-09-22 10:18 | disposition home or self-care (01) ==
LOC: HO.LNP 10:17
PROVIDERS: PCP Internal Medicine; Visit Provider Internal Medicine
DX: E55.9 Vitamin D deficiency, unspecified (principal); D69.6 Thrombocytopenia, unspecified
CPT/HCPCS: 82306; 85025

== ENCOUNTER → 2021-09-30 12:40 | Outpatient (BNVA) | payer MEDICARE, SELFPAY | PROVIDERS: PCP Internal Medicine; Referring Provider Internal Medicine; Visit Provider Internal Medicine | DX: I48.92 Unspecified atrial flutter (principal); I10 Essential (primary) hypertension; G47.33 Obstructive sleep apnea (adult) (pediatric); R93.1 Abnormal findings on diagnostic imaging of heart and coronary circulation | CPT/HCPCS: 99212 ==

== ENCOUNTER 2021-12-30 07:23 | Outpatient (REF) | payer MEDICARE, SELFPAY ==
--- NOTE | ~2021-12-30 | MM_ITS ---
EXAMINATION: BONE DENSITOMETRY CLINICAL INDICATION: Disorder of bone density and structure. COMPARISON: Previous BD dated 12/16/2018 and baseline BD dated 07/31/2016. TECHNIQUE: Using a [employer] DXA System (software version: 13.1) manufactured by [employer], dual-energy x-ray absorptiometry was performed of the lumbar spine and left hip. The images are of good technical quality. Summary results are attached. FINDINGS: AP SPINE L1-L4: Current: BMD 0.967 g/cm2, Z-score -0.6, T-score -1.8, osteopenia, 0.5% decrease from previous, 0.6% increase from baseline (<5% change is not significant). Prior: BMD 0.972 g/cm2. Baseline: BMD 0.961 g/cm2. LEFT FEMUR, NECK: Current: BMD 0.699 g/cm2, Z-score -1.1, T-score -2.4, osteopenia. Prior: BMD 0.743 g/cm2. Baseline: BMD 0.719 g/cm2. LEFT FEMUR, TOTAL: Current: BMD 0.723 g/cm2, Z-score -1.2, T-score -2.3, osteopenia, 8.6% decrease from previous, 9.7% decrease from baseline (<5% change is not significant). Prior: BMD 0.791 g/cm2. Baseline: BMD 0.801 g/cm2. IDENTIFIED RISK FACTORS: Menopause. HISTORY OF FRACTURE: None listed. MEDICATIONS: Vitamin D. MM/XR DEXA axial skeleton IMPRESSION: 1. DIAGNOSIS: Osteopenia based on the lowest T-score value of -2.4 in the femoral neck applying World Health Organization criteria. 2. 10-YEAR FRACTURE RISK PREDICTION, FRAX: Major osteoporotic fracture (clinical spine, forearm, hip or shoulder) 14.0%. Hip fracture 3.4%. 3. Treatment Recommendations: NOF guidelines recommend consideration for treatment in postmenopausal women and men age 50 and older presenting with the following: -A hip or vertebral (clinical or morphometric) fracture. -T-score less than or equal to -2.5 at the femoral neck or spine after appropriate evaluation to exclude secondary causes. -Low bone mass at the hip or spine and a 10-year fracture probability by FRAX of greater than or equal to 3% for hip fracture or greater than or equal to 20% for major osteoporotic fracture based on the [place] adapted WHO algorithm. 4. Other Recommendations: All treatment decisions require clinical judgment and consideration of individual patient factors, including patient preferences, comorbidities, previous drug use, risk factors not captured in the FRAX model (e.g. frailty, falls, vitamin D deficiency, increased bone turnover, interval significant decline in bone density) and possible under or overestimation of fracture risk by FRAX. Additional medical evaluation for secondary cause of low bone mineral density may be appropriate. FUTURE SCAN RECOMMENDATION: People with diagnosed cases of osteoporosis or at high risk for fracture should have regular bone mineral density tests. For patients eligible for Medicare, routine testing is allowed once every 2 years. The testing frequency can be increased to one year for patients who have rapidly progressing disease, those who are receiving or discontinuing medical therapy to restore bone mass, or have additional risk factors.
--- NOTE | ~2021-12-30 | MM_ITS ---
EXAMINATION: MM SCREENING DIGITAL BREAST TOMOSYNTHESIS, BILATERAL CLINICAL INFORMATION: Screening. Asymptomatic. The lifetime risk of breast cancer based on the Tyrer-Cuzick Model is 5%. COMPARISON: Mammography: 12/26/2020, 12/22/2019, 12/16/2018 TECHNIQUE: Digital breast tomosynthesis is performed in both the craniocaudal and mediolateral oblique views along with computer-aided detection (CAD). Synthesized 2D images are generated from the tomosynthesis. FINDINGS: There are scattered areas of fibroglandular density (ACR BI-RADS breast composition Category b). There are no significant masses, abnormal calcifications, or other abnormalities. There is no developing density or architectural abnormality or interval suspicious calcifications. Again, there are scattered bilateral coarse, round, and rim calcifications. Biopsy clip marker is in the central 9:00 right breast mid depth. The axilla and skin contours are unremarkable. MM/MM tomosynthesis screening BI IMPRESSION: No mammographic evidence of malignancy. ASSESSMENT: BI-RADS 2: Benign RECOMMENDATION: Routine annual mammography screening. This patient's information was entered into a reminder system with a target due date for their next mammogram.
== END 2021-12-30 07:24 | disposition home or self-care (01) ==
LOC: HO.MAMMO 07:23
PROVIDERS: PCP Internal Medicine; Visit Provider Internal Medicine
DX: Z12.31 Encounter for screening mammogram for malignant neoplasm of breast (principal); Z13.820 Encounter for screening for osteoporosis; Z78.0 Asymptomatic menopausal state; M85.80 Other specified disorders of bone density and structure, unspecified site
CPT/HCPCS: 77063; 77067; 77080

== ENCOUNTER → 2022-03-31 08:44 | Outpatient (BNVA) | payer MEDICARE, SELFPAY | PROVIDERS: PCP Internal Medicine; Visit Provider Internal Medicine Endocrinology, Diabetes & Metabolism | DX: M85.80 Other specified disorders of bone density and structure, unspecified site (principal) | CPT/HCPCS: 99202 ==

== ENCOUNTER → 2022-06-24 08:24 | Outpatient (BNVA) | payer MEDICARE, SELFPAY | PROVIDERS: PCP Internal Medicine; Visit Provider Internal Medicine | DX: I48.92 Unspecified atrial flutter (principal); I10 Essential (primary) hypertension; R93.1 Abnormal findings on diagnostic imaging of heart and coronary circulation; G47.33 Obstructive sleep apnea (adult) (pediatric) | CPT/HCPCS: 93005; 99212 ==

== ENCOUNTER 2022-08-31 10:40 | Outpatient (REF) | payer MEDICARE, SELFPAY ==
[2022-08-31 10:45] LABS: MANUAL DIFF FLAG NO
[2022-08-31 10:53] LABS: Basophils Absolute Auto 0.1 X10*3/uL (0.0-0.2); Basophils Percent Auto 0.7 % (0-2); Eosinophils Absolute Auto 0.1 X10*3/uL (0.0-0.4); Eosinophils Percent Auto 1.7 % (0-4); Hematocrit 45.1 % (37.0-47.0); Hemoglobin 14.7 g/dl (12.0-16.0); Imm Gran Abs Auto 0.02 X10*3/uL (0.00-0.03); Imm Gran Pct Auto 0.3 % (0.0-0.4); Lymphocytes Absolute Auto 2.8 X10*3/uL (1.2-4.9); Mean Corpuscular HGB Conc 32.6 g/dl (31.0-35.0); Mean Corpuscular Hemoglobin 29.3 pg (27.0-33.0); Mean Corpuscular Volume 89.8 fL (80.0-98.0); Monocytes Absolute Auto 0.7 X10*3/uL (0.1-1.2); Monocytes Percent Auto 9.4 % (2-11); Neutrophils Absolute Auto 3.5 x10*3/uL (2.0-8.3); Neutrophils Percent Auto 48.9 % (45-73); Platelet Count 333 X10*3/uL (160-400); Red Blood Count 5.02 X10*6/uL (4.20-5.50); Red Cell Distribution Width 13.6 % (11.0-16.0); White Blood Count 7.1 X10*3/uL (4.8-10.8)
[2022-08-31 11:07] LABS: Appearance Urine Cloudy; Color Urine Yellow; Glucose Urine UA Negative (Negative); Leukocyte Esterase Urine Small (1+) (Negative); Nitrite Urine Negative (Negative); PH 5.5 (5.0-9.0); Specific Gravity - Urine >= 1.030 (1.005-1.025); UMIC TRIGGER UACC YES; Urine Blood Negative (Negative); Urine Ketones Negative (Negative); Urine Protein Trace mg/dL (Neg-Trace)
[2022-08-31 11:17] LABS: Bacteria Urine None Seen (None Seen); Calcium Oxalate Crystals Urine Present; Hyaline Casts Urine 0-2 /LPF (0-2); RBC Urine 0-2 /HPF (0-2); UACC Culture Trigger YES
[2022-08-31 11:20] LABS: Estimated Average Glucose 114 mg/dL; Hemoglobin A1c % 5.6 %
[2022-08-31 11:21] LABS: Alanine Aminotransferase 16 U/L (0-31); Albumin Level 3.8 g/dL (3.5-5.0); Alkaline Phosphatase 78 U/L (39-117); Anion Gap 10 (12-20); Aspartate Amino Transferase 16 U/L (5-31); Bilirubin Total 0.5 mg/dL (0.0-1.0); Blood Urea Nitrogen 15 mg/dL (9-16); Calcium 9.3 mg/dL (8.4-10.2); Carbon Dioxide 30 mmol/L (22-29); Chloride 105 mmol/L (96-108); Cholesterol 228 mg/dL; Estimated Glomerular Filt Rate > 60; Glucose Fasting 106 mg/dL (60-99); HDL Cholesterol 56 mg/dL; LDL Cholesterol Calculated 142 mg/dl; Potassium 4.1 mmol/L (3.3-5.1); Sodium 141 mmol/L (135-145); Total Protein 6.1 g/dL (6.5-8.0); Triglycerides 152 mg/dL
[2022-08-31 11:25] LABS: Vitamin D 25-OH Total 42.3 ng/mL (>30)
== END 2022-08-31 10:41 | disposition home or self-care (01) ==
LOC: HO.LNP 10:40
PROVIDERS: Visit Provider Internal Medicine
DX: I10 Essential (primary) hypertension (principal); R73.09 Other abnormal glucose; E78.00 Pure hypercholesterolemia, unspecified; E55.9 Vitamin D deficiency, unspecified; D69.6 Thrombocytopenia, unspecified; R82.90 Unspecified abnormal findings in urine
CPT/HCPCS: 80053; 80061; 81001; 82306; 83036; 85025; 87086

== ENCOUNTER 2022-12-30 15:08 | Outpatient (AMB) | payer MEDICARE, SELFPAY ==
[2022-12-30 15:16] VITALS: BP 130/82; PULSE 63
--- NOTE | 2022-12-30 15:16 | MHC.OFFVIS ---
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 She is currently maintained on a combination of diltiazem as well as Toprol. Overall, feeling good. No complaints like angina or shortness of breath or palpitations or in fact anything cardiac sounding. Seems to be getting along fine. [facility] Medical History (Updated 03/31/22 @ 09:06 by Garcia Basilio MD) Atrial flutter with rapid ventricular response Essential hypertension Osteopenia Paroxysmal atrial flutter Surgical History History of section Family History Father No problems noted. Mother No problems noted. Social History Household Members: Spouse Household Members Other:: Alcohol intake: former Patient Tobacco Use Status: Never used Tobacco Review of Systems Const Denies weakness ENT Denies dizziness Card Denies chest pain, Denies chest pain with activity, Denies syncope, Denies rapid heart rate, Denies pedal edema, Denies edema, Denies leg edema, Denies lightheadedness, Denies palpitations, Denies dyspnea, Denies dyspnea on exertion and Denies orthopnea Resp Denies cough, Denies dyspnea and Denies dyspnea on exertion GI Denies hematochezia and Denies change in stool character Musc Denies abnormal gait, Denies muscle cramps, Denies muscle weakness, Denies numbness, Denies radiating pain into limb and Denies tingling Neuro Denies abnormal gait, Denies dizziness, Denies syncope, Denies numbness, Denies tingling and Denies weakness Endo Denies palpitations Physical Exam Vital Signs: Last Vital Signs Pulse 63 12/30/22 15:16 BP 130/82 12/30/22 15:16 Assessment & Plan Assessment & Plan (1) Paroxysmal atrial flutter: Code(s): I48.92 - Unspecified atrial flutter Plan: Continue diltiazem and metoprolol. Continue Eliquis. In the past, has had nosebleeds but nothing recent. Of note, in the echocardiogram, thought to have normal biatrial size. In the coronary CTA, described to have moderate left atrial enlargement. (2) Essential hypertension: Code(s): I10 - Essential (primary) hypertension Plan: Stable. She does get some anxiety related high blood pressures, but when it is rechecked, comes down. She can do some home blood pressures. (3) Abnormal nuclear cardiac imaging test: Code(s): R93.1 - Abnormal findings on diagnostic imaging of heart and coronary circulation Plan: Myocardial perfusion imaging study shows equivocal area of mild intensity infero-apical ischemia. Coronary CT however does not show any significant disease. The midportion of right PDA was somewhat obscured, but based on description, thought to be rather motion artifact than significant stenosis. Hold off any further workup from coronary standpoint. (4) JORDAN (obstructive sleep apnea): Code(s): G47.33 - Obstructive sleep apnea (adult) (pediatric) Plan: Home sleep study shows mild degree of JORDAN. Weight loss, sleep in lateral position. Plan Discussed with who came for appointment. Coding Level of Care Code Est Pt Level 4 (90289) Diagnoses Paroxysmal atrial flutter I48.92 Essential hypertension I10 Abnormal nuclear cardiac imaging test R93.1 JORDAN (obstructive sleep apnea) G47.33
== END 2022-12-30 15:32 | disposition home or self-care (01) ==
PROVIDERS: PCP Internal Medicine; Referring Provider Internal Medicine; Visit Provider Internal Medicine
DX: I48.92 Unspecified atrial flutter (principal); I10 Essential (primary) hypertension; R93.1 Abnormal findings on diagnostic imaging of heart and coronary circulation; G47.33 Obstructive sleep apnea (adult) (pediatric)
CPT/HCPCS: 99214

== ENCOUNTER → 2022-12-30 15:08 | Outpatient (BNVA) | payer MEDICARE, SELFPAY | PROVIDERS: PCP Internal Medicine; Referring Provider Internal Medicine; Visit Provider Internal Medicine | DX: I48.92 Unspecified atrial flutter (principal); I10 Essential (primary) hypertension; R93.1 Abnormal findings on diagnostic imaging of heart and coronary circulation; G47.33 Obstructive sleep apnea (adult) (pediatric) | CPT/HCPCS: 99212 ==

== ENCOUNTER 2023-01-21 09:20 | Outpatient (REF) | payer MEDICARE, SELFPAY ==
--- NOTE | ~2023-01-21 | MM_ITS ---
EXAMINATION: MM SCREENING DIGITAL BREAST TOMOSYNTHESIS, BILATERAL CLINICAL INFORMATION: Screening. Asymptomatic. COMPARISON: Mammography: This study is compared with prior exams dating back to 2017. TECHNIQUE: Digital breast tomosynthesis is performed in both the craniocaudal and mediolateral oblique views along with computer-aided detection (CAD). Synthesized 2D images are generated from the tomosynthesis. FINDINGS: There are scattered areas of fibroglandular density (ACR BI-RADS breast composition Category b). There are no significant masses, abnormal calcifications, or other abnormalities. Bilateral, coarse, benign calcifications are present in each breast. There is tissue marker present in the left breast from prior benign percutaneous biopsy. MM/MM tomosynthesis screening BI IMPRESSION: No mammographic evidence of malignancy. ASSESSMENT: BI-RADS BI-RADS 2 - Benign Findings RECOMMENDATION: Routine annual mammography screening. 1 year F/U This examination should not preclude the clinical evaluation of a suspicious palpable abnormality. This patient's information was entered into a reminder system with a target due date for their next mammogram.
== END 2023-01-21 09:21 | disposition home or self-care (01) ==
LOC: HO.MAMMO 09:20
PROVIDERS: PCP Internal Medicine; Visit Provider Internal Medicine
DX: Z12.31 Encounter for screening mammogram for malignant neoplasm of breast (principal)
CPT/HCPCS: 77063; 77067

== ENCOUNTER → 2023-01-21 09:30 | Outpatient (BNV) | payer MEDICARE, SELFPAY | PROVIDERS: PCP Internal Medicine; Visit Provider Radiology Diagnostic Radiology | DX: Z12.31 Encounter for screening mammogram for malignant neoplasm of breast (principal) | CPT/HCPCS: 77063; 77067 ==

== ENCOUNTER 2023-03-17 18:52 | Emergency (ER) | payer MEDICARE, SELFPAY ==
--- NOTE | ~2023-03-17 | CT_ITS ---
EXAMINATION: CT CHEST WITH CONTRAST CLINICAL INFORMATION: Left flank hematoma. COMPARISON: Previous chest x-ray June 2021. TECHNIQUE: Multidetector volumetric CT imaging of the chest was obtained after the administration of 85 mL of Omnipaque 350 intravenous contrast without immediate adverse reactions. Axial MIP volume rendering provided. Sagittal and coronal reformatted images were obtained. This CT examination was performed using dose optimization techniques as appropriate, variously including the following: *Automated exposure control. *Adjustment of mA and/or kV according to patient size (this includes techniques or standardized protocols for targeted exams where dose is matched to indication/reason for exam; i.e. extremities or head). *Use of iterative reconstruction technique. DLP: 367 mGy-cm FINDINGS: BUSINESS INTELLIGENCE MANAGER: Unremarkable. LUNGS: The lungs are clear with no evidence of inflammation or nodules. MEDIASTINUM: The heart is slightly enlarged. The mediastinum is otherwise normal. PLEURA: There is no pleural effusion. No pleural mass or thickening. AXILLA: No lymphadenopathy. UPPER ABDOMEN: See abdominal and pelvic CT 03/17/2023. OSSEOUS STRUCTURES: Degenerative changes of the spine. No fracture. Fluid and fat stranding of the right lower posterolateral chest wall. CT/CT chest w IV con IMPRESSION: No acute findings. Slightly enlarged heart. Fluid and fat stranding in the right posterolateral chest wall. Fleischner guidelines were followed.
--- NOTE | ~2023-03-17 | CT_ITS ---
EXAMINATION: CT HEAD WITHOUT CONTRAST CLINICAL INFORMATION: Fall COMPARISON: None TECHNIQUE: Contiguous axial imaging was performed from the skull base to vertex without intravenous administration of contrast. This CT examination was performed using dose optimization techniques as appropriate, variously including the following: *Automated exposure control *Adjustment of mA and/or kV according to patient size (this includes techniques or standardized protocols for targeted exams where dose is matched to indication/reason for exam; i.e. extremities or head) *Use of iterative reconstruction technique DLP: 1004 mGy-cm FINDINGS: There is no evidence of acute intracranial hemorrhage or territorial infarction. No abnormal mass effect or midline shift is seen. Manuel to white matter differentiation is well preserved. No extra-axial fluid collections are identified. The ventricles are normal in size. There is no abnormal attenuation within the brain parenchyma. The osseous structures and soft tissues are normal. Near complete opacification of the right maxillary sinus. The mastoid air cells and visualized portions of the paranasal sinuses are well aerated. CT/CT cervical spine wo IV con IMPRESSION: 1. No acute intracranial pathology. 2. Near complete opacification of the right maxillary sinus. EXAMINATION: Noncontrast CT scan of the cervical spine. INDICATION: Fall COMPARISON: None. TECHNIQUE: Helical, multidetector axial images were obtained from the occiput to the upper thorax. Coronal and sagittal reformats of the cervical spine were provided for interpretation. DLP: 4004 mGy-cm FINDINGS: No acute fractures or dislocations of the cervical spine are seen. Multilevel degenerative changes. Anatomic alignment and positioning of the vertebral bodies and posterior elements is noted. The atlantoaxial joint and craniovertebral articulations are normal without evidence of subluxation. There is no prevertebral soft tissue swelling. The thyroid gland and visualized portions of the lung apices and mediastinum are unremarkable. IMPRESSION: 1. No acute visible fracture or dislocation. 2. Multilevel degenerative changes.
--- NOTE | ~2023-03-17 | CT_ITS ---
EXAMINATION: CT ABDOMEN AND PELVIS WITH CONTRAST CLINICAL INFORMATION: Flank hematoma COMPARISON: Chest CT from the same day TECHNIQUE: Multidetector volumetric images were obtained from the superior aspect of the liver through the pubic symphysis following administration 85 mL of Omnipaque 350 intravenous contrast. Sagittal and coronal reformatted images were obtained on the technologist's workstation. Oral contrast: Yes This CT examination was performed using dose optimization techniques as appropriate, variously including the following: *Automated exposure control *Adjustment of mA and/or kV according to patient size (this includes techniques or standardized protocols for targeted exams where dose is matched to indication/reason for exam; i.e. extremities or head) *Use of iterative reconstruction technique DLP: 5 7 mGy-cm FINDINGS: LUNG BASES: The visualized lung bases are unremarkable. LIVER, GALLBLADDER, AND BILIARY TREE: The liver is normal in size, shape, and attenuation. No focal hepatic lesion or biliary ductal dilatation is present. The gallbladder is unremarkable with no evidence of radiopaque gallstones, gallbladder wall thickening, or obvious pericholecystic inflammatory changes. PANCREAS: Unremarkable. 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 Otherwise unremarkable. ADRENAL GLANDS: Unremarkable. KIDNEYS AND URETERS: The kidneys are normal in size, shape, and attenuation. No hydronephrosis, hydroureter, or calculi seen. Small bilateral renal cortical and left peripelvic cyst. No imaging follow-up. No perinephric stranding. BLADDER: Unremarkable. GASTROINTESTINAL TRACT: Diverticulosis of the colon. The small and large bowel are otherwise unremarkable. The appendix is unremarkable. ABDOMINAL WALL: Large high attenuation soft tissue mass right flank. There is surrounding fluid and fat stranding. Appearance is suggestive of a hematoma. This measures 6 x 11 x 12 cm in dimension. There is a focus of very bright attenuation questionable for active arterial bleeding. Donor vessel not certain. Diastasis of the rectus muscles and small umbilical hernia containing fat. LYMPH NODES: Normal. VASCULAR: Atherosclerotic disease. 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 PELVIC VISCERA: Unremarkable. OSSEOUS STRUCTURES: Degenerative changes of the spine and hip joints. No fracture seen. CT/CT abdomen pelvis w IV con IMPRESSION: Large right flank hematoma measuring 6 x 11 x 12 cm. There is a very high attenuation focus questionable for active arterial bleeding. Gallstone. Diverticulosis. Findings will be communicated by the [employer] workflow oil field technician. Fleischner guidelines were followed.
[2023-03-17 19:38] VITALS: BP 84/43; PULSE 52; RESP 18; TEMP 36.7; O2SAT 96; BMI 30.1
--- NOTE | 2023-03-17 19:42 | ED_ITS ---
HPI - General Adult General Chief complaint: Fall Stated complaint: fell, severe pain, lump on side Time Seen by Provider: 03/17/23 19:56 Source: patient and family Mode of arrival: ambulatory Limitations: no limitations History of Present Illness HPI narrative: 72-year-old female with a history of afib on Eliquis presents to the ER after a fall at 17:00 today. Per patient she lost her footing as she was carrying something falling on the ground hitting her right abdomen on the ground. She denies hitting her head or loss of consciousness. She reports right-sided abdominal pain. No chest pain, back pain, neck pain, headache, vision changes, vomiting. Patient did take a tramadol at 17:00 for pain prior to arrival with continued symptoms. Related Data Home Medications Medication Instructions Recorded Confirmed apixaban 5 mg tablet 5 mg PO BID 11/14/20 12/30/22 diltiazem HCl 240 mg 240 mg PO DAILY 11/14/20 12/30/22 capsule,extended release 24 hr valsartan 320 1 tab PO DAILY 06/26/21 12/30/22 mg-hydrochlorothiazide 12.5 mg tablet cholecalciferol (vitamin D3) 50 50 mcg PO DAILY 03/31/22 12/30/22 mcg (2,000 unit) capsule Previous Rx's Medication Instructions Recorded metoprolol succinate 50 mg 50 mg PO DAILY #30 tabs 06/27/21 tablet,extended release 24 hr Allergies Allergy/AdvReac Type Severity Reaction Status Date / Time Penicillins Allergy Unknown HIVES Verified 03/17/23 19:38 Review of Systems 2 Review of Systems: Yes all other systems are reviewed and are negative Constitutional: Constitutional: Reports no additional constitutional complaints, Denies body ache(s), Denies chills, Denies fever(s), Denies headache(s) and Denies weakness Eyes: Eyes: Reports no additional eye complaints and Denies change in vision ENT: Reports system reviewed and no additional complaints, except as documented, Denies dizziness, Denies headache(s), Denies nasal congestion, Denies nasal discharge and Denies neck pain Cardiovascular: Cardiovascular: Reports no additional cardiovascular complaints, Denies chest pain, Denies leg edema and Denies dyspnea Respiratory: Respiratory: Reports no additional respiratory complaints, Denies cough and Denies dyspnea Gastrointestinal: Gastrointestinal: Reports no additional gastrointestinal complaints, Reports abdominal pain, Denies diarrhea, Denies nausea and Denies vomiting Genitourinary: Genitourinary: Reports no additional female genitourinary complaints and Denies urinary incontinence Musculoskeletal: Musculoskeletal: Reports no additional musculoskeletal complaints, Denies back pain, Denies arthralgias, Denies joint swelling, Denies neck pain, Denies numbness and Denies tingling Integumentary/Breasts: Skin/Breast: Reports system reviewed and no additional complaints, except as docu and Denies rash Neurologic: Reports system reviewed and no additional complaints, except as documented, Denies Abnormal speech present, Denies dizziness, Denies headache(s), Denies numbness, Denies tingling and Denies weakness PMFSH Past Medical History Attestation statement: The following information was validated with the patient. Source: old records reviewed and nursing notes reviewed Medical History Osteopenia Atrial flutter with rapid ventricular response Essential hypertension Paroxysmal atrial flutter Surgical History History of section Family History Family History Father No problems noted. Mother No problems noted. Social History Social History Household Members: Spouse Household Members Other:: Alcohol intake: former Patient Tobacco Use Status: Never used Tobacco Advance Directives: No Physical Exam ED Vital Signs: Vital Signs - 24 hr 03/17/23 19:38 03/17/23 19:58 03/17/23 20:24 Temperature 98.1 F Pulse Rate 52 60 Respiratory Rate 18 15 Blood Pressure 84/43 L 130/44 L 138/49 L Pulse Oximetry 96 97 Oxygen Delivery Method Room Air 03/17/23 21:20 Temperature 97.9 F Pulse Rate 50 Respiratory Rate 18 Blood Pressure 103/49 L Pulse Oximetry 97 Oxygen Delivery Method Room Air BMI result Body Mass Index 30.1 Const General: cooperative, healthy appearing, comfortable and no acute distress Orientation/consciousness: patient oriented x3 Limitations: no limitations HENMT Head: Yes normal to inspection Ears: hearing grossly normal bilaterally General nose exam: Normal external nose present Face and sinus: Yes normal facial exam Mouth: Normal oral and palatal mucosa present Throat: Yes posterior oropharynx normal Eyes General: appearance normal, both eyes and all related structures Pupils: Equal, round and reactive pupils present Neck Neck: Yes normal visual inspection Chest Chest palpation & inspection: normal inspection of the chest Resp Effort & Inspection: normal respiratory effort Auscultation: clear to auscultation bilaterally Cardio Rate: regular rate Rhythm: regular rhythm Peripheral pulses: Peripheral pulses 2+ throughout GI Other: To the right flank and right abdomen there is a large area of ecchymosis with tenderness and swelling. Inspection: Yes normal to inspection Palpation (GI): Soft to palpation and nontender Auscultation: normal bowel sounds Back/Spine/Pelvis Thoracic/Lumbar Spine: thoracic and lumbar spine normal to inspection Skin General skin exam: no rashes or lesions noted Neuro General: patient oriented x3, no focal motor deficits and normal sensation to monofilament Cranial nerves: Yes Equal, round and reactive pupils present Cognition (Neuro): normal cognition Speech: No Abnormal speech present Gait exam (Neuro): Normal gait present Motor exam (neuro): 5/5 motor strength present throughout Extrem General: Yes normal to inspection Course Course Course Narrative: RME: 72 yold female presents to the ED for right flank pain after falling unto door. positive for large right flank hematoma. patient is hypotensive. brought to the ED immeidatley. IV placed for trauma scan. patient agreed to ct scan without labs to rule out life threatenening trauma injury/bleed. FLuids ordered. Dr. Brennan made aware Reevaluation(s) Reevaluation #1: 213- IMPRESSION: Large right flank hematoma measuring 6 x 11 x 12 cm. There is a very high attenuation focus questionable for active arterial bleeding. Gallstone. Diverticulosis. Findings will be communicated by the [place] workflow differential tester. Fleischner guidelines were followed. I did speak to the radiologist. She is concerned that there is active arterial bleeding but is unable to identify a vessel. hgb/hct stable. Blood pressure stable. As the patient had a fall I will call and speak to [facility] transfer line. [employer] ordered. [id number] spoke to Dr. Cota from [facility] trauma service who accepted transfer Medications Administered Discontinued Medications Generic Name Dose Route Start Last Admin Trade Name Freq PRN Reason Stop Dose Admin Sodium Chloride 1,000 mls @ 999 mls/hr 03/17/23 19:35 03/17/23 21:00 Ns IV 03/17/23 20:35 Infused .Q1H1M STA Infusion Prothrombin Complex Concent ( 80 mls @ 480 mls/hr 03/17/23 21:31 03/17/23 22:03 Human) 2,000 unit/ IV IV 03/17/23 21:40 Infused Miscellaneous Supplies .Q10M ONE Infusion Iohexol 100 ml 03/17/23 20:02 03/17/23 20:02 Iohexol 350 Mg/Ml 100 Ml Infus..Btl IV 03/17/23 20:03 85 ml ONCE ONE Administration Morphine Sulfate 4 mg 03/17/23 20:08 03/17/23 20:22 Morphine Sulfate 4 Mg/Ml Cartridge IVPUSH 03/17/23 20:09 4 mg ONCE ONE Administration Protocol Morphine Sulfate 4 mg 03/17/23 22:11 03/17/23 22:30 Morphine Sulfate 4 Mg/Ml Cartridge IVPUSH 03/17/23 22:12 4 mg ONCE ONE Administration Protocol Ondansetron HCl 4 mg 03/17/23 20:08 03/17/23 20:22 Ondansetron Hcl 4 Mg/2 Ml Vial IVPUSH 03/17/23 20:09 4 mg ONCE ONE Administration Medical Decision Making Medical Decision Making MDM Narrative: 72-year-old female with a history of afib on Eliquis presents to the ER after a fall at 17:00 today. Per patient she lost her footing as she was carrying something falling on the ground hitting her right abdomen on the ground. She denies hitting her head or loss of consciousness. She reports right-sided abdominal pain. No chest pain, back pain, neck pain, headache, vision changes, vomiting. Patient did take a tramadol at 17:00 for pain prior to arrival with continued symptoms. To the right flank and right abdomen there is a large area of ecchymosis with tenderness and swelling. Patient had a blood pressure of 80 systolic in triage. She was brought back to the room and a repeat blood pressure was 130 systolic. A IV was placed and patient had labs drawn and went immediately to CT scan for a CT of the abdomen and pelvis, CT chest, CT head and CT cervical spine. Differential Diagnosis Differential Diagnoses: The differential diagnosis associated with the presentation includes Retroperitoneal hemorrhage, intra-abdominal trauma Admission/Observation Consideration of admission/observation: Escalation of care including admission/observation considered Patient with abdominal wall hematoma ? active area of bleeding on Eliquis w/ trauma Consult Healthcare Provider Management of the patient was discussed with: Senior Trial Attorney Spoke to trauma service[place] Cota [place] [facility] [place] Lab Data MDM Lab Attestation statement: I reviewed the patient's lab results. 03/17/23 20:11 03/17/23 20:11 Labs: Lab Results 03/17/23 03/17/23 Range/Units 20:10 20:11 WBC 12.5 H (4.8-10.8) X10*3/uL RBC 4.14 L (4.20-5.50) X10*6/uL Hgb 11.9 L (12.0-16.0) g/dl Hct 36.1 L (37.0-47.0) % MCV 87.2 (80.0-98.0) fL MCH 28.7 (27.0-33.0) pg MCHC 33.0 (31.0-35.0) g/dl RDW 13.6 (11.0-16.0) % Plt Count 260 (160-400) X10*3/uL MPV 9.7 (9.4-12.3) fL Immature Gran % (Auto) 0.4 (0.0-0.4) % Neut % (Auto) 88.3 H (45-73) % Lymph % (Auto) 7.7 L (20-40) % Mclennan % (Auto) 3.1 (2-11) % Eos % (Auto) 0.2 (0-4) % Baso % (Auto) 0.3 (0-2) % Lymph # (Auto) 1.0 L (1.2-4.9) X10*3/uL Mclennan # (Auto) 0.4 (0.1-1.2) X10*3/uL Eos # (Auto) 0.0 (0.0-0.4) X10*3/uL Baso # (Auto) 0.0 (0.0-0.2) X10*3/uL Abs Immat Gran (auto) 0.05 H (0.00-0.03) X10*3/uL Absolute Neuts (auto) 11.1 H (2.0-8.3) x10*3/uL Absolute Nucleated RBC 0.000 (0.0-0.012) X10*3/uL Nucleated RBC % (auto) 0.0 (0.0-0.2) /100WBC PT 20.6 H (11.1-13.3) SEC INR 1.7 H (0.9-1.1) APTT 27.9 (26.0-36.4) SEC Sodium 138 (135-145) mmol/L Potassium 3.2 L D (3.3-5.1) mmol/L Chloride 105 (96-108) mmol/L Carbon Dioxide 24 (22-29) mmol/L Anion Gap 12 (12-20) BUN 11 (9-16) mg/dL Creatinine 0.77 (0.5-1.4) mg/dL Estim Creat Clear Calc 71.9 Estimated GFR > 60 Random Glucose 210 H (60-115) mg/dL Calcium 8.6 D (8.4-10.2) mg/dL Total Bilirubin 0.4 (0.0-1.0) mg/dL AST 18 (5-31) U/L ALT 18 (0-31) U/L Alkaline Phosphatase 54 (39-117) U/L Total Protein 4.9 L (6.5-8.0) g/dL Albumin 3.0 L (3.5-5.0) g/dL Blood Type O Positive Antibody Screen NEGATIVE Independent Interpretation I performed an independent interpretation of an: CT Scan Radiology Impression Discussion of test interpretation with radiology: I have reviewed the radiologist's reading. Radiologist Impression: Close Chest CT (Signed) Aleshia Cornell - 03/17/23 Abdomen/Pelvis CT (Signed) Aleshia Cornell - 03/17/[address] (Signed) DarwinSamehuseyin - 03/17/[address] (Signed) Darwin,Morris - 03/17/23 Mammogram Screening (Signed) Magda Oneal - 01/21/23 Bone Densitometry (Signed) Aristeo Cummins - 12/30/21 Mammogram Screening (Signed) Aristeo Cummins - 12/30/21 Diagnostic Report, External 09/23/21 Cardiolite Stress Test (Signed) Robin Cunningham - 07/10/21 Chest X-Ray (Signed) Cuong Kuo - 06/26/21 Mammogram Screening (Signed) Aristeo Cummins - 12/26/20 Launch?Image [address] [address] [address] Scan Report Signed Patient: Kiara Solano MR#: [id number] : 1950 Acct:[id number] Age/Sex: 72 / F ADM Date: 03/17/23 Loc: HO.ED Attending Dr: Ordering Physician: David Andrews Date of Service: 03/17/23 Procedure(s): CT chest w IV con Accession Number(s): [id number] cc: David Andrews; Alverto Baker MD~ EXAMINATION: CT CHEST WITH CONTRAST CLINICAL INFORMATION: Left flank hematoma. COMPARISON: Previous chest x-ray June 2021. TECHNIQUE: Multidetector volumetric CT imaging of the chest was obtained after the administration of 85 mL of Omnipaque 350 intravenous contrast without immediate adverse reactions. Axial MIP volume rendering provided. Sagittal and coronal reformatted images were obtained. This CT examination was performed using dose optimization techniques as appropriate, variously including the following: *Automated exposure control. *Adjustment of mA and/or kV according to patient size (this includes techniques or standardized protocols for targeted exams where dose is matched to indication/reason for exam; i.e. extremities or head). *Use of iterative reconstruction technique. DLP: 367 mGy-cm FINDINGS: STAFF ANESTHESIOLOGIST: Unremarkable. LUNGS: The lungs are clear with no evidence of inflammation or nodules. MEDIASTINUM: The heart is slightly enlarged. The mediastinum is otherwise normal. PLEURA: There is no pleural effusion. No pleural mass or thickening. AXILLA: No lymphadenopathy. UPPER ABDOMEN: See abdominal and pelvic CT 03/17/2023. OSSEOUS STRUCTURES: Degenerative changes of the spine. No fracture. Fluid and fat stranding of the right lower posterolateral chest wall. CT/CT chest w IV con IMPRESSION: No acute findings. Slightly enlarged heart. Fluid and fat stranding in the right posterolateral chest wall. Fleischner guidelines were followed. Close Chest CT (Signed) Aleshia Cornell - 03/17/23 Abdomen/Pelvis CT (Signed) Aleshia Cornell - 03/17/[address] (Signed) Morris Granados - 03/17/[address] (Signed) Morris Granados - 03/17/23 Mammogram Screening (Signed) Magda Oneal - 01/21/23 Bone Densitometry (Signed) Aristeo Cummins - 12/30/21 Mammogram Screening (Signed) Maria GPonceAristeo - 12/30/21 Diagnostic Report, External 09/23/21 Cardiolite Stress Test (Signed) Robin Cunningham - 07/10/21 Chest X-Ray (Signed) AyaanCuong - 06/26/21 Mammogram Screening (Signed) Maria GAristeo - 12/26/20 Launch?Image [address] [address] [address] Scan Report Signed Patient: Kiara Solano MR#: [id number] : 1950 Acct:[id number] Age/Sex: 72 / F ADM Date: 03/17/23 Loc: HO.ED Attending Dr: Ordering Physician: David Andrews Date of Service: 03/17/23 Procedure(s): CT abdomen pelvis w IV con Accession Number(s): [id number] cc: David Andrews; Alverto Baker MD~ EXAMINATION: CT ABDOMEN AND PELVIS WITH CONTRAST CLINICAL INFORMATION: Flank hematoma COMPARISON: Chest CT from the same day TECHNIQUE: Multidetector volumetric images were obtained from the superior aspect of the liver through the pubic symphysis following administration 85 mL of Omnipaque 350 intravenous contrast. Sagittal and coronal reformatted images were obtained on the technologist's workstation. Oral contrast: Yes This CT examination was performed using dose optimization techniques as appropriate, variously including the following: *Automated exposure control *Adjustment of mA and/or kV according to patient size (this includes techniques or standardized protocols for targeted exams where dose is matched to indication/reason for exam; i.e. extremities or head) *Use of iterative reconstruction technique DLP: 5 7 mGy-cm FINDINGS: LUNG BASES: The visualized lung bases are unremarkable. LIVER, GALLBLADDER, AND BILIARY TREE: The liver is normal in size, shape, and attenuation. No focal hepatic lesion or biliary ductal dilatation is present. The gallbladder is unremarkable with no evidence of radiopaque gallstones, gallbladder wall thickening, or obvious pericholecystic inflammatory changes. PANCREAS: Unremarkable. 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 Otherwise unremarkable. ADRENAL GLANDS: Unremarkable. KIDNEYS AND URETERS: The kidneys are normal in size, shape, and attenuation. No hydronephrosis, hydroureter, or calculi seen. Small bilateral renal cortical and left peripelvic cyst. No imaging follow-up. No perinephric stranding. BLADDER: Unremarkable. GASTROINTESTINAL TRACT: Diverticulosis of the colon. The small and large bowel are otherwise unremarkable. The appendix is unremarkable. ABDOMINAL WALL: Large high attenuation soft tissue mass right flank. There is surrounding fluid and fat stranding. Appearance is suggestive of a hematoma. This measures 6 x 11 x 12 cm in dimension. There is a focus of very bright attenuation questionable for active arterial bleeding. Donor vessel not certain. Diastasis of the rectus muscles and small umbilical hernia containing fat. LYMPH NODES: Normal. VASCULAR: Atherosclerotic disease. 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 PELVIC VISCERA: Unremarkable. OSSEOUS STRUCTURES: Degenerative changes of the spine and hip joints. No fracture seen. CT/CT abdomen pelvis w IV con IMPRESSION: Large right flank hematoma measuring 6 x 11 x 12 cm. There is a very high attenuation focus questionable for active arterial bleeding. Gallstone. Diverticulosis. Findings will be communicated by the [place] workflow differential tester. Fleischner guidelines were followed. [place] [address] CT Scan Report Signed Patient: Kiara Solano MR#: [id number] : 1950 Acct:[id number] Age/Sex: 72 / F ADM Date: 03/17/23 Loc: HO.ED Attending Dr: Ordering Physician: David Andrews Date of Service: 03/17/23 Procedure(s): CT head/brain wo IV con Accession Number(s): [id number] cc: David Andrews; Alverto Baker MD~ EXAMINATION: CT HEAD WITHOUT CONTRAST CLINICAL INFORMATION: Fall COMPARISON: None TECHNIQUE: Contiguous axial imaging was performed from the skull base to vertex without intravenous administration of contrast. This CT examination was performed using dose optimization techniques as appropriate, variously including the following: *Automated exposure control *Adjustment of mA and/or kV according to patient size (this includes techniques or standardized protocols for targeted exams where dose is matched to indication/reason for exam; i.e. extremities or head) *Use of iterative reconstruction technique DLP: 1004 mGy-cm FINDINGS: There is no evidence of acute intracranial hemorrhage or territorial infarction. No abnormal mass effect or midline shift is seen. Manuel to white matter differentiation is well preserved. No extra-axial fluid collections are identified. The ventricles are normal in size. There is no abnormal attenuation within the brain parenchyma. The osseous structures and soft tissues are normal. Near complete opacification of the right maxillary sinus. The mastoid air cells and visualized portions of the paranasal sinuses are well aerated. CT/CT head/brain wo IV con IMPRESSION: 1. No acute intracranial pathology. 2. Near complete opacification of the right maxillary sinus. EXAMINATION: Noncontrast CT scan of the cervical spine. INDICATION: Fall COMPARISON: None. TECHNIQUE: Helical, multidetector axial images were obtained from the occiput to the upper thorax. Coronal and sagittal reformats of the cervical spine were provided for interpretation. DLP: 4004 mGy-cm FINDINGS: No acute fractures or dislocations of the cervical spine are seen. Multilevel degenerative changes. Anatomic alignment and positioning of the vertebral bodies and posterior elements is noted. The atlantoaxial joint and craniovertebral articulations are normal without evidence of subluxation. There is no prevertebral soft tissue swelling. The thyroid gland and visualized portions of the lung apices and mediastinum are unremarkable. IMPRESSION: 1. No acute visible fracture or dislocation. 2. Multilevel degenerative changes. Discharge Plan Discharge Clinical Impression: Abdominal hematoma Patient Disposition: [facility] Transfer Details: [facility] Prescriptions: No Action valsartan-hydrochlorothiazide 320-12.5 mg tablet 1 tab PO DAILY metoprolol succinate 50 mg Tablet Extended Release 24 Hr 50 mg PO DAILY Qty: 30 0RF Protocol: Hold for SBP/HR < HOLD for SBP < : 90 HOLD for HR < : 60 apixaban 5 mg tablet 5 mg PO BID diltiazem HCl 240 mg capsule,extended release 24hr 240 mg PO DAILY cholecalciferol (vitamin D3) 50 mcg (2,000 unit) capsule 50 mcg PO DAILY Interventions: Acute Care Transfer Worksheet (ED) Last Done: 03/17/23 23:11 Discharge Date/Time: 03/17/23 23:47
[2023-03-17 19:58] VITALS: BP 130/44
[2023-03-17] MEDS: iohexoL 350 MG/ML 100 ML INFUS..BTL IV (20:02)
[2023-03-17] MEDS: 0.9 % Sodium Chloride 1,000 ML 999 ML IV (20:06)
[2023-03-17 20:22] LABS: MANUAL DIFF FLAG NO
[2023-03-17] MEDS: ondansetron HCL 4 MG/2 ML VIAL IVPUSH (20:22)
[2023-03-17] MEDS: Morphine Sulfate 4 MG/ML CARTRIDGE IVPUSH ×2 (20:22→22:30)
[2023-03-17 20:23] LABS: Basophils Percent Auto 0.3 % (0-2); Eosinophils Percent Auto 0.2 % (0-4); Hematocrit 36.1 % (37.0-47.0); Hemoglobin 11.9 g/dl (12.0-16.0); Imm Gran Abs Auto 0.05 X10*3/uL (0.00-0.03); Imm Gran Pct Auto 0.4 % (0.0-0.4); Lymphocytes Percent Auto 7.7 % (20-40); Mean Corpuscular Hemoglobin 28.7 pg (27.0-33.0); Mean Corpuscular Volume 87.2 fL (80.0-98.0); Mean Platelet Volume 9.7 fL (9.4-12.3); Monocytes Absolute Auto 0.4 X10*3/uL (0.1-1.2); Monocytes Percent Auto 3.1 % (2-11); Neutrophils Absolute Auto 11.1 x10*3/uL (2.0-8.3); Neutrophils Percent Auto 88.3 % (45-73); Platelet Count 260 X10*3/uL (160-400); Red Blood Count 4.14 X10*6/uL (4.20-5.50); Red Cell Distribution Width 13.6 % (11.0-16.0); White Blood Count 12.5 X10*3/uL (4.8-10.8)
[2023-03-17 20:24] VITALS: BP 138/49; PULSE 60; RESP 15; O2SAT 97
[2023-03-17 20:30] LABS: INTERNATIONAL NORM RATIO 1.7 (0.9-1.1); Prothrombin Time 20.6 SEC (11.1-13.3)
[2023-03-17 20:33] LABS: Partial Thromboplastin Time 27.9 SEC (26.0-36.4)
[2023-03-17 20:38] LABS: Alanine Aminotransferase 18 U/L (0-31); Alkaline Phosphatase 54 U/L (39-117); Anion Gap 12 (12-20); Aspartate Amino Transferase 18 U/L (5-31); Bilirubin Total 0.4 mg/dL (0.0-1.0); Blood Urea Nitrogen 11 mg/dL (9-16); Calcium 8.6 mg/dL (8.4-10.2); Carbon Dioxide 24 mmol/L (22-29); Chloride 105 mmol/L (96-108); Creatinine Clr Calc Pharmacy 71.9; Estimated Glomerular Filt Rate > 60; Glucose Random 210 mg/dL (60-115); Potassium 3.2 mmol/L (3.3-5.1); Sodium 138 mmol/L (135-145); Total Protein 4.9 g/dL (6.5-8.0)
[2023-03-17 21:20] VITALS: BP 103/49; PULSE 50; RESP 18; TEMP 36.6; O2SAT 97
[2023-03-17] MEDS: Hum Prothrombin Cplx(PCC)4Fact 2,000 UNIT in Container,Empty 0 ML 480 UNIT IV (21:52)
--- NOTE | 2023-03-17 22:11 | PC.NURSE ---
nurse to nurse report called at [facility]
--- NOTE | 2023-03-17 23:35 | PC.NURSE ---
morphine 4mg given at 2230 for pain. Unable to scan due to downstime
== END 2023-03-17 23:47 | disposition short-term general hospital (02) ==
PROVIDERS: Physician Assistant; Emergency Provider Internal Medicine; PCP Internal Medicine
DX: S30.1XXA Contusion of abdominal wall, initial encounter (principal); W18.09XA Striking against other object with subsequent fall, initial encounter; I48.0 Paroxysmal atrial fibrillation; I95.9 Hypotension, unspecified; Z79.01 Long term (current) use of anticoagulants; Z79.899 Other long term (current) drug therapy; Y93.9 Activity, unspecified; Y92.9 Unspecified place or not applicable; Y99.9 Unspecified external cause status
CPT/HCPCS: 36415; 70450; 71260; 72125; 74177; 80053; 85025; 85610; 85730; 86850; 86900; 86901; 96361; 96374; 96375; 96376; 99285; J2270; J2405; J7168; Q9967

== ENCOUNTER 2023-03-30 14:31 | Outpatient (REF) | payer MEDICARE, SELFPAY ==
[2023-03-30 14:43] LABS: MANUAL DIFF FLAG NO
[2023-03-30 15:22] LABS: Basophils Percent Auto 0.5 % (0-2); Eosinophils Absolute Auto 0.1 X10*3/uL (0.0-0.4); Eosinophils Percent Auto 0.9 % (0-4); Hematocrit 32.2 % (37.0-47.0); Hemoglobin 10.2 g/dl (12.0-16.0); Imm Gran Abs Auto 0.04 X10*3/uL (0.00-0.03); Imm Gran Pct Auto 0.5 % (0.0-0.4); Lymphocytes Absolute Auto 1.9 X10*3/uL (1.2-4.9); Lymphocytes Percent Auto 23.5 % (20-40); Mean Corpuscular HGB Conc 31.7 g/dl (31.0-35.0); Mean Corpuscular Hemoglobin 29.7 pg (27.0-33.0); Mean Corpuscular Volume 93.9 fL (80.0-98.0); Monocytes Absolute Auto 0.5 X10*3/uL (0.1-1.2); Monocytes Percent Auto 5.9 % (2-11); Neutrophils Absolute Auto 5.5 x10*3/uL (2.0-8.3); Neutrophils Percent Auto 68.7 % (45-73); Platelet Count 461 X10*3/uL (160-400); Red Blood Count 3.43 X10*6/uL (4.20-5.50); Red Cell Distribution Width 18.6 % (11.0-16.0)
== END 2023-03-30 14:32 | disposition home or self-care (01) ==
LOC: HO.LAB 14:31
PROVIDERS: PCP Internal Medicine; Visit Provider Internal Medicine
DX: T14.8XXA Other injury of unspecified body region, initial encounter (principal); X58.XXXA Exposure to other specified factors, initial encounter; Y93.9 Activity, unspecified; Y92.9 Unspecified place or not applicable; Y99.9 Unspecified external cause status
CPT/HCPCS: 36415; 85025

== ENCOUNTER 2023-04-01 12:20 | Outpatient (AMB) | payer MEDICARE, SELFPAY ==
[2023-04-01 12:35] VITALS: BP 170/68; PULSE 72; BMI 30.6
--- NOTE | 2023-04-01 12:35 | A.OFFVIS_ITS ---
Intake Vital Signs 04/01/23 12:35 Height 5 ft 5 in Weight 183 lb 13.848 oz BMI 30.6 BP 170/68 H Blood Pressure Location Lt brachial Position Sitting Pulse 72 Intake Visit Reasons: [facility] follow up Int[place] [facility] [place] [employer] Cans Required: No Accompanied by: Spouse Allergies Penicillins Allergy (Unknown, Verified 04/01/23 12:37) HIVES Medication List - Last Reconciled 04/01/23 by Taurus Grover MD cholecalciferol (vitamin D3) 50 mcg PO DAILY diltiazem HCl 240 mg PO DAILY metoprolol succinate ER 50 mg PO DAILY HPI HPI Comments History of Present Illness Details Kiara returns for follow-up regarding atrial fibrillation. She is currently maintained on a combination of diltiazem as well as Toprol. Recently, had a mechanical fall and that led to [facility] hospitalization. She had a large flank hematoma, 12/11 cm. After that, she was administered Kcentra. She had lowish blood pressures and after that, it seems her blood pressure medications were stop completely. That was only fall and she does not have recurrent falls. Otherwise, she feels okay. Almost back to baseline. [facility] Medical History Osteopenia Atrial flutter with rapid ventricular response Essential hypertension Paroxysmal atrial flutter Surgical History History of section Family History Father No problems noted. Mother No problems noted. Social History Household Members: Spouse Household Members Other:: Alcohol intake: former Patient Tobacco Use Status: Never used Tobacco Review of Systems Const Denies weakness ENT Denies dizziness Card Denies chest pain, Denies chest pain with activity, Denies syncope, Denies rapid heart rate, Denies pedal edema, Denies edema, Denies leg edema, Denies lightheadedness, Denies palpitations, Denies dyspnea, Denies dyspnea on exertion and Denies orthopnea Resp Denies cough, Denies dyspnea and Denies dyspnea on exertion GI Denies hematochezia and Denies change in stool character Musc Denies abnormal gait, Denies muscle cramps, Denies muscle weakness, Denies numbness, Denies radiating pain into limb and Denies tingling Neuro Denies abnormal gait, Denies dizziness, Denies syncope, Denies numbness, Denies tingling and Denies weakness Endo Denies palpitations Physical Exam Vital Signs: Last Vital Signs Pulse 72 04/01/23 12:35 BP 170/68 H 04/01/23 12:35 BMI result Body Mass Index 30.6 Const General: comfortable and no acute distress Orientation/consciousness: patient oriented x3 HEENT Other: Unremarkable Head: Yes normal to inspection Neck Neck: Yes normal visual inspection Chest Chest palpation & inspection: normal inspection of the chest Resp Auscultation: clear to auscultation bilaterally Cardio Palpation: normal PMI Heart sounds: S1 normal heart sound present, S2 normal heart sound present, no gallops, no murmurs and no rubs GI Palpation (GI): Soft to palpation Back/Spine/Pelvis Other: unremarkable Skin General skin exam: no rashes or lesions noted Neuro General: patient oriented x3 Extrem General: Yes normal to inspection Psych Mental Status: mental status grossly normal Assessment & Plan Assessment & Plan (1) Paroxysmal atrial flutter: Code(s): I48.92 - Unspecified atrial flutter Plan: She is only taking the diltiazem at this time as the metoprolol was stopped during hospitalization. That can be resumed. With regard to Eliquis, that can also be resumed. Last hemoglobin from 03/30 was 10.2. Of note, in the echocardiogram, thought to have normal biatrial size. In the coronary CTA, described to have moderate left atrial enlargement. (2) Essential hypertension: Code(s): I10 - Essential (primary) hypertension Plan: Home diary shows stable blood pressures. She does get anxiety elevated high blood pressures in the clinic. Any case, addition of metoprolol should help. She was also on valsartan/hydrochlorothiazide which was stopped during hospitalization for the above hematoma. If necessary, will resume that in the future. (3) Abnormal nuclear cardiac imaging test: Code(s): R93.1 - Abnormal findings on diagnostic imaging of heart and coronary circulation Plan: Myocardial perfusion imaging study shows equivocal area of mild intensity infero-apical ischemia. Coronary CT however does not show any significant disease. The midportion of right PDA was somewhat obscured, but based on description, thought to be rather motion artifact than significant stenosis. Clinically, she does not have any angina. (4) JORDAN (obstructive sleep apnea): Code(s): G47.33 - Obstructive sleep apnea (adult) (pediatric) Plan: Home sleep study shows mild degree of JORDAN. Weight loss, sleep in lateral position. Plan Discussed with . Coding Level of Care Code Est Pt Level 4 (80545) Diagnoses Paroxysmal atrial flutter I48.92 Essential hypertension I10 Abnormal nuclear cardiac imaging test R93.1 JORDAN (obstructive sleep apnea) G47.33
== END 2023-04-01 12:58 | disposition home or self-care (01) ==
PROVIDERS: PCP Internal Medicine; Visit Provider Internal Medicine
DX: I48.92 Unspecified atrial flutter (principal); I10 Essential (primary) hypertension; R93.1 Abnormal findings on diagnostic imaging of heart and coronary circulation; G47.33 Obstructive sleep apnea (adult) (pediatric)
CPT/HCPCS: 99214

== ENCOUNTER → 2023-04-01 12:20 | Outpatient (BNVA) | payer MEDICARE, SELFPAY | PROVIDERS: PCP Internal Medicine; Visit Provider Internal Medicine | DX: I48.92 Unspecified atrial flutter (principal); I10 Essential (primary) hypertension; G47.33 Obstructive sleep apnea (adult) (pediatric); R93.1 Abnormal findings on diagnostic imaging of heart and coronary circulation | CPT/HCPCS: 99212 ==

== ENCOUNTER 2023-04-19 11:23 | Outpatient (REF) | payer MEDICARE, SELFPAY | END 2023-04-19 11:24 | disposition home or self-care (01) | LOC: HO.LNP 11:23 | PROVIDERS: Visit Provider Internal Medicine | DX: E87.6 Hypokalemia (principal) | CPT/HCPCS: 84132 ==

== ENCOUNTER 2023-07-06 13:08 | Outpatient (AMB) | payer MEDICARE, SELFPAY ==
[2023-07-06 13:33] VITALS: BP 154/70; PULSE 60; BMI 28.6
--- NOTE | 2023-07-06 13:33 | A.OFFVIS_ITS ---
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 She is currently maintained on a combination of diltiazem as well as Toprol. Last year, she had a mechanical fall and that led to [facility] hospitalization. She had a large flank hematoma, 12/11 cm. After that, she was administered Kcentra. She had lowish blood pressures and after that, it seems her blood pressure medications were stop completely. That was only fall and she does not have recurrent falls. Since that time, she is essentially back to her usual self. No cardiac complaints at all. [facility] Medical History Osteopenia Atrial flutter with rapid ventricular response Essential hypertension Paroxysmal atrial flutter Surgical History History of section Family History Father No problems noted. Mother No problems noted. Social History Household Members: Spouse Household Members Other:: Alcohol intake: former Patient Tobacco Use Status: Never used Tobacco Review of Systems Const Denies weakness ENT Denies dizziness Card Denies chest pain, Denies chest pain with activity, Denies syncope, Denies rapid heart rate, Denies pedal edema, Denies edema, Denies leg edema, Denies lightheadedness, Denies palpitations, Denies dyspnea, Denies dyspnea on exertion and Denies orthopnea Resp Denies cough, Denies dyspnea and Denies dyspnea on exertion GI Denies hematochezia and Denies change in stool character Musc Denies abnormal gait, Denies muscle cramps, Denies muscle weakness, Denies numbness, Denies radiating pain into limb and Denies tingling Neuro Denies abnormal gait, Denies dizziness, Denies syncope, Denies numbness, Denies tingling and Denies weakness Endo Denies palpitations Physical Exam Vital Signs: Last Vital Signs Pulse 60 07/06/23 13:33 BP 154/70 H 07/06/23 13:33 BMI result Body Mass Index 28.6 Const General: comfortable and no acute distress Orientation/consciousness: patient oriented x3 HEENT Other: Unremarkable Head: Yes normal to inspection Neck Neck: Yes normal visual inspection Chest Chest palpation & inspection: normal inspection of the chest Resp Auscultation: clear to auscultation bilaterally Cardio Palpation: normal PMI Heart sounds: S1 normal heart sound present, S2 normal heart sound present, no gallops, no murmurs and no rubs GI Palpation (GI): Soft to palpation Back/Spine/Pelvis Other: unremarkable Skin General skin exam: no rashes or lesions noted Neuro General: patient oriented x3 Extrem General: Yes normal to inspection Psych Mental Status: mental status grossly normal Office Procedures EKG Details: EKG with sinus rhythm, sinus arrhythmia at 60/Min; no significant ST-T changes and otherwise unremarkable[place]. [id number], Complete Assessment & Plan Assessment & Plan (1) Paroxysmal atrial flutter: Code(s): I48.92 - Unspecified atrial flutter Plan: Continue diltiazem/metoprolol without changes. Continue Eliquis. Of note, in the echocardiogram, thought to have normal biatrial size. In the coronary CTA, described to have moderate left atrial enlargement. (2) Essential hypertension: Code(s): I10 - Essential (primary) hypertension Plan: She does have some white coat effect and has high blood pressures but it seems that blood pressure is also borderline high at home. Hence resumed valsartan/HCTZ that was held after the last admission. She can check labs few days after the initiation of medication. (3) Abnormal nuclear cardiac imaging test: Code(s): R93.1 - Abnormal findings on diagnostic imaging of heart and coronary circulation Plan: Myocardial perfusion imaging study shows equivocal area of mild intensity infero-apical ischemia. Coronary CT however does not show any significant disease. The midportion of right PDA was somewhat obscured, but based on description, thought to be rather motion artifact than significant stenosis. Clinically, she does not have any angina. (4) JORDAN (obstructive sleep apnea): Code(s): G47.33 - Obstructive sleep apnea (adult) (pediatric) Plan: Home sleep study shows mild degree of JORDAN. Weight loss, sleep in lateral position. Plan Discussed with who came for appointment. Orders: Orders Basic Metabolic Panel Today I10 - Essential (primary) hypertension Medications: New valsartan-hydrochlorothiazide 320-12.5 mg 1 tab PO DAILY 90 tabs 3RF 90 days Coding Level of Care Code Est Pt Level 4 (41577) Diagnoses Paroxysmal atrial flutter I48.92 Essential hypertension I10 Abnormal nuclear cardiac imaging test R93.1 JORDAN (obstructive sleep apnea) G47.33 CPT Codes EKG - CPT: 72902-[id number], Complete ([id number])
== END 2023-07-06 13:52 | disposition home or self-care (01) ==
PROVIDERS: PCP Internal Medicine; Visit Provider Internal Medicine
DX: I48.92 Unspecified atrial flutter (principal); I10 Essential (primary) hypertension; R93.1 Abnormal findings on diagnostic imaging of heart and coronary circulation; G47.33 Obstructive sleep apnea (adult) (pediatric)
CPT/HCPCS: 93010; 99214

== ENCOUNTER → 2023-07-06 13:08 | Outpatient (BNVA) | payer MEDICARE, SELFPAY | PROVIDERS: PCP Internal Medicine; Visit Provider Internal Medicine | DX: I48.92 Unspecified atrial flutter (principal); I10 Essential (primary) hypertension; R93.1 Abnormal findings on diagnostic imaging of heart and coronary circulation; G47.33 Obstructive sleep apnea (adult) (pediatric) | CPT/HCPCS: 93005; 99212 ==

== ENCOUNTER 2023-07-26 09:24 | Day surgery (SDC) | payer MEDICARE, SELFPAY ==
[2023-07-20 15:58] VITALS: BMI 28.6
--- NOTE | 2023-07-23 10:50 | HO.ANESPROP2 ---
HPI - Anesthesia Eval Consult details Narrative: 73yo F for Right Cataract Extraction IOL Insertion Medically cleared No previous cataract on record Eliquis for afib/flutter PMFSH Active Problems Active Problems: All Active Problems (Updated 07/20/23 @ 15:57 by Jen Jaffe, RN) Abnormal nuclear cardiac imaging test (Acute) Precordial chest pain (Acute) Chest pain (Acute) JORDAN (obstructive sleep apnea) (Acute) Osteopenia (Acute) Paroxysmal atrial flutter (Acute) Essential hypertension (Acute) Atrial flutter with rapid ventricular response (Acute) Past Medical History Medical History Cataract Osteopenia Atrial flutter with rapid ventricular response Essential hypertension Paroxysmal atrial flutter Family History Family History Father No problems noted. Mother No problems noted. Surgical History Surgical History Hx of cataract removal with insertion of prosthetic lens History of section Social History Social History Household Members: Spouse Household Members Other:: Alcohol intake: former Patient Tobacco Use Status: Never used Tobacco Use of substances other than those prescribed or required for medical reasons: No Are you DNR?: No Advance Directives: No Advance Directives Information Provided: Yes Meds Allergies Allergy/AdvReac Type Severity Reaction Status Date / Time Penicillins Allergy Unknown HIVES Verified 08/09/23 11:48 Home Medications Medication Instructions Recorded Confirmed Last Taken Type diltiazem HCl 240 mg 240 mg PO DAILY 11/14/20 08/09/23 08/09/23 07:00 History capsule,extended release 24 hr cholecalciferol (vitamin D3) 50 50 mcg PO DAILY 03/31/22 08/09/23 Unknown History mcg (2,000 unit) capsule metoprolol succinate 50 mg 50 mg PO DAILY 04/01/23 08/09/23 08/09/23 07:00 History tablet,extended release 24 hr apixaban 5 mg tablet (Eliquis) 5 mg PO BID 07/06/23 08/09/23 08/09/23 07:00 History Exam Height,Weight and Vital Signs: Height 5 ft 5 in Weight 78.018 kg Assessment and Plan Assessment Anesthesia Assessment: Chart Reviewed
[2023-07-26 14:08] VITALS: BMI 29.6
[2023-07-26 14:11] VITALS: BP 164/66; PULSE 73; RESP 18; TEMP 36.3; O2SAT 97
[2023-07-26 14:14] VITALS: BMI 29.6
[2023-07-26] MEDS: Phenylephrine HCL 2.5% Oph SoL 2 ML BOTTLE 1 DROP EYE-RIGHT ×3 (14:27→14:33)
[2023-07-26] MEDS: Tetracaine HCl/PF 0.5% Oph Sol 4 ML DROPS 1 DROP EYE-RIGHT (14:27)
[2023-07-26] MEDS: Tropicamide 1 % Ophth Sol 3 ML BTL 1 DROP EYE-RIGHT ×3 (14:28→14:34)
[2023-07-26] MEDS: Ketorolac Tromethamine 0.5% Op 5 ML DROPS 1 DROP EYE-RIGHT ×3 (14:28→14:34)
[2023-07-26] MEDS: Cyclopentolate 1 % Ophth Sol 2 ML DRPBTL 1 DROP EYE-RIGHT ×3 (14:28→14:34)
[2023-07-26] MEDS: Lactated Ringers 500 ML 50 ML IV (14:29)
--- NOTE | 2023-07-26 15:02 | MHC.SHP ---
Pre-Procedural Eval Section A - 24 Hr Update-Section A only Date of Service: 07/26/23 The patient is an INPATIENT: No Changes since office visit: No Cold of Flu in the past 2 weeks, No New Medical Problems, No Changes in Medication and No Patient answered all questions The patient has been examined within 24 hours of the surgical procedure. The History & Physical has been completed within 30 days and I have reviewed it.: Yes Section B - Complete if H&P > 30 days Chief Complaint: Age-related nuclear cataract, right eye Allergies: Allergies Allergy/AdvReac Type Severity Reaction Status Date / Time Penicillins Allergy Unknown HIVES Verified 07/06/23 13:35 Plan Diagnosis/Plan: Unchanged I have reviewed the history and physical and performed a pertinent physical examination on my patient. No changes have occurred unless specified. Time Spent With Patient Time: Total time managing care of this patient today ____ minutes.
--- NOTE | 2023-07-26 15:02 | HO.PNOPHT ---
Ophthalmology Procedure Procedure Date of Service: 07/26/23 Ophthalmology Viscoelastic: Healon Duet Dual Pack Pro Ophthalmology Lenses: Other ([id number] 19) Procedure Notes: PREOPERATIVE DIAGNOSIS: Decreased visual acuity right eye secondary to cataract POSTOPERATIVE DIAGNOSIS: Same PROCEDURE: Right cataract extraction with intraocular lens insertion SURGEON: Seth Briones M.D. ANESTHESIA: Topical/MAC ESTIMATED BLOOD LOSS: None COMPLICATIONS: None After obtaining informed consent, the patient was brought to the operating room suite and placed in the supine position. After adequate sedation per anesthesia, topical drops of Tetracaine were given to the right eye. The eye was then prepped and draped in the usual sterile fashion. The operating room microscope was then positioned over the operative eye and a lid speculum placed. A paracentesis was created. Viscoelastic was then instilled into the anterior chamber. A three plane incision was then created temporally, utilizing a 2.85 mm keratome. Capsulotomy forceps were then utilized to create a circular tear capsulotomy. Hydrodissection and hydrodelineation were carried out until adequate mobilization of the nucleus occurred. Phacoemulsification was then utilized to remove the dense central nucleus followed by removal of the cortical material utilizing the automated aspiration irrigation unit. Viscoelastic was instilled into the posterior capsular bag followed by placement of a posterior chamber intraocular lens without difficulty. The residual Viscoelastic was then removed utilizing the automated IA machine. The wound was checked and found to be watertight. The patient tolerated the procedure well and the lid speculum was removed. Intracameral injection of Vigamox 0.1 mL followed by a subtenon injection of Kenalog-40 0.2 mL were administered. The patient will be seen in the a.m.
[2023-07-26 16:21] VITALS: BP 149/51; PULSE 54; RESP 16; TEMP 36.6; O2SAT 97
== END 2023-07-26 16:23 | disposition home or self-care (01) ==
PROVIDERS: PCP Internal Medicine; Visit Provider Ophthalmology
PROC: (CPT 66985; principal; 2023-07-26 12:10)
DX: H25.11 Age-related nuclear cataract, right eye (principal); H54.7 Unspecified visual loss; I10 Essential (primary) hypertension; I48.91 Unspecified atrial fibrillation; G47.33 Obstructive sleep apnea (adult) (pediatric); Z79.01 Long term (current) use of anticoagulants; Z79.899 Other long term (current) drug therapy; Z88.0 Allergy status to penicillin
CPT/HCPCS: 66984; J2250; J3010; J3301; V2630

== ENCOUNTER 2023-08-09 09:23 | Day surgery (SDC) | payer MEDICARE, SELFPAY ==
[2023-07-21 16:46] VITALS: BMI 28.6
[2023-08-09 11:51] VITALS: BP 185/76; PULSE 57; RESP 18; TEMP 36.6; O2SAT 95
[2023-08-09] MEDS: Tetracaine HCl/PF 0.5% Oph Sol 4 ML DROPS 1 DROP EYE-LEFT (12:05)
[2023-08-09] MEDS: Cyclopentolate 1 % Ophth Sol 2 ML DRPBTL 1 DROP EYE-LEFT ×3 (12:10→12:31)
[2023-08-09] MEDS: Tropicamide 1 % Ophth Sol 3 ML BTL 1 DROP EYE-LEFT ×3 (12:12→12:26)
[2023-08-09] MEDS: Ketorolac Tromethamine 0.5% Op 5 ML DROPS 1 DROP EYE-LEFT ×3 (12:14→12:27)
[2023-08-09] MEDS: Phenylephrine HCL 2.5% Oph SoL 2 ML BOTTLE 1 DROP EYE-LEFT ×3 (12:16→12:25)
[2023-08-09] MEDS: Lactated Ringers 500 ML 50 ML IV (12:19)
--- NOTE | 2023-08-09 12:48 | HO.ANESPROP2 ---
HPI - Anesthesia Eval Consult details Narrative: Left eye cataract + IOL PMFSH Active Problems Active Problems: All Active Problems (Updated 07/20/23 @ 15:57 by Jen Jaffe RN) Abnormal nuclear cardiac imaging test (Acute) Precordial chest pain (Acute) Chest pain (Acute) JORDAN (obstructive sleep apnea) (Acute) Osteopenia (Acute) Paroxysmal atrial flutter (Acute) Essential hypertension (Acute) Atrial flutter with rapid ventricular response (Acute) Past Medical History Medical History Cataract Osteopenia Atrial flutter with rapid ventricular response Essential hypertension Paroxysmal atrial flutter Family History Family History Father No problems noted. Mother No problems noted. Family history of problems with anesthesia: No Surgical History Surgical History Hx of cataract removal with insertion of prosthetic lens History of section History of Problems with Anesthesia: No Social History Social History Household Members: Spouse Household Members Other:: Alcohol intake: former Patient Tobacco Use Status: Never used Tobacco Use of substances other than those prescribed or required for medical reasons: No Are you DNR?: No Advance Directives: No Advance Directives Information Provided: Yes Meds Allergies Allergy/AdvReac Type Severity Reaction Status Date / Time Penicillins Allergy Unknown HIVES Verified 08/09/23 11:48 Active Medications: Current Medications Lactated Ringer's (Lr) 500 mls @ 50 mls/hr IV .Q10H AYSHA Stop: 08/09/23 18:59 Last Admin: 08/09/23 12:19 Dose: 50 mls/hr Povidone Iodine (Povidone Iodine 5 % Ophth Soln 30 Ml Bottle) 1 appl EYE-LEFT PREOP PRN PRN Reason: Pre-Op Surgical Implant Prophy Home Medications Medication Instructions Recorded Confirmed Last Taken Type diltiazem HCl 240 mg 240 mg PO DAILY 11/14/20 08/09/23 08/09/23 07:00 History capsule,extended release 24 hr cholecalciferol (vitamin D3) 50 50 mcg PO DAILY 03/31/22 08/09/23 Unknown History mcg (2,000 unit) capsule metoprolol succinate 50 mg 50 mg PO DAILY 04/01/23 08/09/23 08/09/23 07:00 History tablet,extended release 24 hr apixaban 5 mg tablet (Eliquis) 5 mg PO BID 07/06/23 08/09/23 08/09/23 07:00 History Exam Height,Weight and Vital Signs: Height 5 ft 5 in Weight 78.01 kg Last Vital Signs Temp 97.8 F 08/09/23 11:51 Pulse 57 08/09/23 11:51 Resp 18 08/09/23 11:51 BP 185/76 H 08/09/23 11:51 Pulse Ox 95 08/09/23 11:51 O2 Del Method Room Air 08/09/23 11:51 Airway Mallampati Class: II TM Dist: >3cm Neck ROM: Full Loose/Missing/Broken Teeth: Yes (poor dentition globally) Heart: irreg irreg +s1s2 Lungs: cta b/l Assessment and Plan Assessment Anesthesia Assessment: Anesthesia Plan Discussed and Chart Reviewed Final Anesthetic Review Family History of Problems with Anesthesia: No History of Problems with Anesthesia: No NPO: Yes ASA Class: III Final Preanesthetic Review: No Changes in Pt Med Stat, Meds/Allgs Chart Reviewed, Consent Obtained/Reviewed and Anes Risks/Benef Reviewed Patient Risk: Intermediate Procedure Risk: Intermediate Assessment/Block/Sedation in SS: Assess/Block/Sedation-SS Anesthetic Plan Anesthetic Plan: MAC: Disposition: Standard PACU
--- NOTE | 2023-08-09 13:30 | MHC.SHP ---
Pre-Procedural Eval Section A - 24 Hr Update-Section A only Date of Service: 08/09/23 The patient is an INPATIENT: No Changes since office visit: No Cold of Flu in the past 2 weeks, No New Medical Problems, No Changes in Medication and No Patient answered all questions The patient has been examined within 24 hours of the surgical procedure. The History & Physical has been completed within 30 days and I have reviewed it.: Yes Section B - Complete if H&P > 30 days Chief Complaint: Age-related nuclear cataract, left eye Allergies: Allergies Allergy/AdvReac Type Severity Reaction Status Date / Time Penicillins Allergy Unknown HIVES Verified 08/09/23 11:48 Plan Diagnosis/Plan: Unchanged I have reviewed the history and physical and performed a pertinent physical examination on my patient. No changes have occurred unless specified. Time Spent With Patient Time: Total time managing care of this patient today ____ minutes.
--- NOTE | 2023-08-09 13:32 | HO.PNOPHT ---
Ophthalmology Procedure Procedure Date of Service: 08/09/23 Ophthalmology Viscoelastic: Healon Duet Dual Pack Pro Ophthalmology Lenses: Other (ma 60. 19) Procedure Notes: PREOPERATIVE DIAGNOSIS: Decreased visual acuity left eye secondary to cataract POSTOPERATIVE DIAGNOSIS: Same PROCEDURE: Left cataract extraction with intraocular lens insertion SURGEON: Seth Briones M.D. ANESTHESIA: Topical/MAC ESTIMATED BLOOD LOSS: None COMPLICATIONS: None After obtaining informed consent, the patient was brought to the operation room suite and placed in the supine position. After adequate sedation per anesthesia, topical drops of Tetracaine were given to the left eye. The eye was then prepped and draped in the usual sterile fashion. The operating room microscope was then positioned over the operative eye and a lid speculum placed. A paracentesis was created. Viscoelastic was then instilled into the anterior chamber. A three plane incision was then created temporally, utilizing a 2.85 mm keratome. Capsulotomy forceps were then utilized to create a circular tear capsulotomy. Hydrodissection and hydrodelineation were carried out until adequate mobilization of the nucleus occurred. Phacoemulsification was then utilized to remove the dense central nucleus followed by removal of the cortical material utilizing the automated aspiration irrigation unit. Viscoat elastic was instilled into the posterior capsular bag followed by placement of a posterior chamber intraocular lens without difficulty. The residual Viscoat elastic was then removed utilizing the automated IA machine. The wound was check and found to be watertight. The patient tolerated the procedure well and the lid speculum was removed. Intracameral injection of Vigamox 0.1 mL followed by a subtenon injection of Kenalog-40 0.2 mL were administered. The patient will be seen in the a.m.
[2023-08-09 14:00] VITALS: BP 157/67; PULSE 52; RESP 14; TEMP 36.9; O2SAT 95
[2023-08-09 14:15] VITALS: BP 158/64; PULSE 57; RESP 18; TEMP 36.9; O2SAT 96
== END 2023-08-09 14:16 | disposition home or self-care (01) ==
PROVIDERS: PCP Internal Medicine; Visit Provider Ophthalmology
PROC: (CPT 66985; principal; 2023-08-09 11:20)
DX: H25.12 Age-related nuclear cataract, left eye (principal); H54.7 Unspecified visual loss; I48.91 Unspecified atrial fibrillation; I10 Essential (primary) hypertension; G47.33 Obstructive sleep apnea (adult) (pediatric); L71.9 Rosacea, unspecified; Z79.01 Long term (current) use of anticoagulants; Z88.0 Allergy status to penicillin; Z79.899 Other long term (current) drug therapy
CPT/HCPCS: 66984; J2250; J3010; J3301; V2630

== ENCOUNTER 2023-08-31 11:31 | Outpatient (REF) | payer MEDICARE, SELFPAY ==
[2023-08-31 11:37] LABS: MANUAL DIFF FLAG NO
[2023-08-31 12:08] LABS: Appearance Urine Clear; Color Urine Yellow; Glucose Urine UA Negative (Negative); Leukocyte Esterase Urine Moderate (2+) (Negative); Nitrite Urine Negative (Negative); Specific Gravity - Urine 1.015 (1.005-1.025); UMIC TRIGGER UACC YES; Urine Blood Negative (Negative); Urine Ketones Negative (Negative); Urine Protein Negative (Neg-Trace)
[2023-08-31 12:12] LABS: Basophils Percent Auto 0.5 % (0-2); Eosinophils Absolute Auto 0.1 X10*3/uL (0.0-0.4); Eosinophils Percent Auto 1.7 % (0-4); Hematocrit 46.3 % (37.0-47.0); Imm Gran Abs Auto 0.01 X10*3/uL (0.00-0.03); Imm Gran Pct Auto 0.2 % (0.0-0.4); Lymphocytes Absolute Auto 2.2 X10*3/uL (1.2-4.9); Lymphocytes Percent Auto 37.3 % (20-40); Mean Corpuscular HGB Conc 33.3 g/dl (31.0-35.0); Mean Corpuscular Hemoglobin 28.9 pg (27.0-33.0); Mean Platelet Volume 9.9 fL (9.4-12.3); Monocytes Absolute Auto 0.5 X10*3/uL (0.1-1.2); Monocytes Percent Auto 7.9 % (2-11); Neutrophils Absolute Auto 3.1 x10*3/uL (2.0-8.3); Neutrophils Percent Auto 52.4 % (45-73); Platelet Count 309 X10*3/uL (160-400); Red Blood Count 5.32 X10*6/uL (4.20-5.50); Red Cell Distribution Width 15.6 % (11.0-16.0)
[2023-08-31 12:13] LABS: Bacteria Urine None Seen (None Seen); Hyaline Casts Urine 0-2 /LPF (0-2); RBC Urine 0-2 /HPF (0-2); Squamous Epithelial Cell Urine 0-2 /HPF (0-2); UACC Culture Trigger YES
[2023-08-31 12:15] LABS: Hemoglobin 15.4 g/dl (12.0-16.0)
[2023-08-31 12:16] LABS: White Blood Count 5.9 X10*3/uL (4.8-10.8)
[2023-08-31 12:26] LABS: Estimated Average Glucose 120 mg/dL; Hemoglobin A1C 147.1925 umol/L; Hemoglobin A1c % 5.8 % (<6.0)
[2023-08-31 12:42] LABS: Alanine Aminotransferase 17 U/L (0-31); Albumin Level 3.7 g/dL (3.5-5.0); Alkaline Phosphatase 81 U/L (39-117); Anion Gap 12 (12-20); Aspartate Amino Transferase 18 U/L (5-31); Bilirubin Total 0.6 mg/dL (0.0-1.0); Blood Urea Nitrogen 14 mg/dL (9-16); Calcium 9.3 mg/dL (8.4-10.2); Carbon Dioxide 28 mmol/L (22-29); Chloride 107 mmol/L (96-108); Cholesterol 228 mg/dL (<200); Estimated Glomerular Filt Rate > 60; Glucose Fasting 104 mg/dL (60-99); HDL Cholesterol 64 mg/dL (>40); LDL Cholesterol Calculated 149 mg/dL (<100); Potassium 3.6 mmol/L (3.3-5.1); Sodium 143 mmol/L (135-145); Total Protein 6.4 g/dL (6.5-8.0); Triglycerides 79 mg/dL (<150)
[2023-08-31 12:44] LABS: Vitamin D 25-OH Total 89.1 ng/mL (>30)
[2023-08-31 12:50] LABS: Creatinine Urine 82.32 mg/dL; Microalbumin Urine < 5.0 mg/L
== END 2023-08-31 11:32 | disposition home or self-care (01) ==
LOC: HO.LNP 11:31
PROVIDERS: Visit Provider Internal Medicine
DX: I10 Essential (primary) hypertension (principal); R73.09 Other abnormal glucose; E78.00 Pure hypercholesterolemia, unspecified; E55.9 Vitamin D deficiency, unspecified; D69.6 Thrombocytopenia, unspecified; R82.90 Unspecified abnormal findings in urine
CPT/HCPCS: 80053; 80061; 81001; 82043; 82306; 82570; 83036; 85025; 87086; 87147

== ENCOUNTER 2024-01-06 12:29 | Outpatient (AMB) | payer MEDICARE, SELFPAY ==
[2024-01-06 12:55] VITALS: BP 150/62; PULSE 63; BMI 30.3
--- NOTE | 2024-01-06 12:55 | A.OFFVIS_ITS ---
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 She is currently maintained on a combination of diltiazem as well as Toprol. In 2022, she had a mechanical fall and that led to [facility] hospitalization. She had a large flank hematoma, 12/11 cm. After that, she was administered Kcentra. She had lowish blood pressures and after that, it seems her blood pressure medications were stopped completely. That was only fall and she does not have recurrent falls. No new issues in the last few months. Blood pressure seems to be on the higher side. However, she also has some white coat effect. Recently, he had resumed her valsartan/hydrochlorothiazide. [facility] Medical History Cataract Osteopenia Atrial flutter with rapid ventricular response Essential hypertension Paroxysmal atrial flutter Surgical History Hx of cataract removal with insertion of prosthetic lens History of section Family History Father No problems noted. Mother No problems noted. Social History Household Members: Spouse Household Members Other:: Alcohol intake: former Patient Tobacco Use Status: Never used Tobacco Review of Systems Const Denies chills, Denies fatigue, Denies fever(s), Denies weight gain and Denies weight loss ENT Denies dizziness Card Denies chest pain, Denies leg edema, Denies lightheadedness, Denies palpitations, Denies dyspnea on exertion, Denies orthopnea and Denies other Resp Denies cough and Denies dyspnea on exertion GI Denies hematochezia and Denies change in stool character Musc Denies abnormal gait, Denies muscle weakness, Denies numbness, Denies radiating pain into limb and Denies tingling Neuro Denies abnormal gait, Denies dizziness, Denies numbness and Denies tingling Endo Denies fatigue and Denies palpitations Physical Exam Vital Signs: Last Vital Signs Pulse 63 01/06/24 12:55 BP 150/62 H 01/06/24 12:55 BMI result Body Mass Index 30.3 Const General: comfortable and no acute distress Orientation/consciousness: patient oriented x3 HEENT Other: Unremarkable Head: Yes normal to inspection Neck Neck: Yes normal visual inspection Chest Chest palpation & inspection: normal inspection of the chest Resp Auscultation: clear to auscultation bilaterally Cardio Palpation: normal PMI Heart sounds: S1 normal heart sound present, S2 normal heart sound present, no gallops, no murmurs and no rubs GI Palpation (GI): Soft to palpation Back/Spine/Pelvis Other: unremarkable Skin General skin exam: no rashes or lesions noted Neuro General: patient oriented x3 Extrem General: Yes normal to inspection Psych Mental Status: mental status grossly normal Assessment & Plan Assessment & Plan (1) Paroxysmal atrial flutter: Code(s): I48.92 - Unspecified atrial flutter Category: Medical Plan: Stable on diltiazem/metoprolol. Continue Eliquis. Of note, in the echocardiogram, thought to have normal biatrial size. In the coronary CTA, described to have moderate left atrial enlargement. (2) Essential hypertension: Code(s): I10 - Essential (primary) hypertension Category: Medical Plan: Currently on valsartan/hydrochlorothiazide. Blood pressure is on the higher side today but she also has anxiety coming here and has white coat effects. Hence strongly advised to do home blood pressures. Based on the trend, we can add additional medication like spironolactone. (3) Abnormal nuclear cardiac imaging test: Code(s): R93.1 - Abnormal findings on diagnostic imaging of heart and coronary circulation Category: Medical Plan: Myocardial perfusion imaging study shows equivocal area of mild intensity infero-apical ischemia. Coronary CT however does not show any significant disease. The midportion of right PDA was somewhat obscured, but based on description, thought to be rather motion artifact than significant stenosis. Clinically, she does not have any angina. (4) JORDAN (obstructive sleep apnea): Code(s): G47.33 - Obstructive sleep apnea (adult) (pediatric) Category: Medical Plan: Home sleep study shows mild degree of JORDAN. Weight loss, sleep in lateral position. Plan Discussed with . Coding Level of Care Code Est Pt Level 4 (17617) Diagnoses Paroxysmal atrial flutter I48.92 Essential hypertension I10 Abnormal nuclear cardiac imaging test R93.1 JORDAN (obstructive sleep apnea) G47.33
== END 2024-01-06 13:12 | disposition home or self-care (01) ==
PROVIDERS: PCP Internal Medicine; Visit Provider Internal Medicine
DX: I48.92 Unspecified atrial flutter (principal); I10 Essential (primary) hypertension; R93.1 Abnormal findings on diagnostic imaging of heart and coronary circulation; G47.33 Obstructive sleep apnea (adult) (pediatric)
CPT/HCPCS: 99214

== ENCOUNTER → 2024-01-06 12:29 | Outpatient (BNVA) | payer MEDICARE, SELFPAY | PROVIDERS: PCP Internal Medicine; Visit Provider Internal Medicine | DX: I48.92 Unspecified atrial flutter (principal); I10 Essential (primary) hypertension; R93.1 Abnormal findings on diagnostic imaging of heart and coronary circulation; G47.33 Obstructive sleep apnea (adult) (pediatric); Z79.899 Other long term (current) drug therapy | CPT/HCPCS: 99212 ==

== ENCOUNTER 2024-01-26 07:35 | Outpatient (REF) | payer MEDICARE, SELFPAY ==
--- NOTE | ~2024-01-26 | MM_ITS ---
EXAMINATION: MM SCREENING DIGITAL BREAST TOMOSYNTHESIS, BILATERAL CLINICAL INFORMATION: Screening. Asymptomatic. COMPARISON: Mammography: Comparison is made with available priors TECHNIQUE: Digital breast mammography with tomosynthesis is performed in both the craniocaudal and mediolateral oblique views along with computer-aided detection (CAD). FINDINGS: There are scattered areas of fibroglandular density (ACR BI-RADS breast composition Category b). There are no significant masses, abnormal calcifications, or other abnormalities. MM/MM tomosynthesis screening BI IMPRESSION: No mammographic evidence of malignancy. ASSESSMENT: BI-RADS BI-RADS 1 - Negative RECOMMENDATION: Routine annual mammography screening. 1 year F/U This examination should not preclude the clinical evaluation of a suspicious palpable abnormality. This patient's information was entered into a reminder system with a target due date for their next mammogram. Electronically signed by: Karlie Armenta DO 02/13/2024 09:14 AM EDT
== END 2024-01-26 07:36 | disposition home or self-care (01) ==
LOC: HO.MAMMO 07:35
PROVIDERS: PCP Internal Medicine; Visit Provider Internal Medicine
DX: Z12.31 Encounter for screening mammogram for malignant neoplasm of breast (principal)
CPT/HCPCS: 77063; 77067

== ENCOUNTER → 2024-01-26 07:45 | Outpatient (BNV) | payer MEDICARE, SELFPAY | PROVIDERS: PCP Internal Medicine; Visit Provider Internal Medicine | DX: Z12.31 Encounter for screening mammogram for malignant neoplasm of breast (principal) | CPT/HCPCS: 77063; 77067 ==

== ENCOUNTER 2024-07-06 12:27 | Outpatient (AMB) | payer MEDICARE, SELFPAY ==
--- OUTSIDE RECORDS SUMMARY | 2024-07-06 12:37 | XMS_ITS ---
Author Organization Alverto Baker MD Address [address] [place], [place] [id number] Care Team Providers Care Valet Attendant Name Role Phone Alverto Baker Primary Care Provider [phone] Allergies Allergen (clinical drug ingredient) Drug/Non Drug [...] Date Provider Diagnosis Alverto Baker MD [address] [place], [place] [phone] 09/21/2023 Alverto Baker Vitamin D deficiency E55.9 [...] Months, Reason: bp Provider Name:Alverto Ball ier, 09/21/2024 07:00:00 AM, [address], [address], [place], [phone], Provider Name:Alverto Ball ier, 09/28/2024 11:00:00 AM, [address], [address], [place], [phone], Progress Notes * RADHA Kiara ADOB: 2 (73 yo F)Acc No.[id number]:09/21/2023 Progress Notes Patient:?Radha Kiara A Provider:?Alverto Baker MD :1950???Age:73 Y???Sex:Female D ate:09/21/2023 [address] [address], [place] Subjective: * Chief Complaints: * ???Review labsNO Covid sympt oms * HPI: ???Depression Screening:?PHQ-9?Little interest or pleasure in doing things?Not at all,?Feeling down, depressed, or hopeless?Not at all,?Trouble falling or staying asleep, or sleeping too much?Not at all,?Feeling tired or having little energy?Not at all,?Poor appetite or overeating?Not at all,?Feeling bad about yourself or that you are a failure, or have let yourself or your family down?Not at all,?Trouble concentrating on things, such as reading the newspaper or watching television?Not at all,?Moving or speaking so slowly that other people could have noticed; or the opposite, being so fidgety or restless that you have been moving around a lot more than usual?Not at all,?Thoughts that you would be better off or of hurting yourself in some way?Not at all,?Total Score?0.?Interpretation and Intervention?Depression Screening Findings?Negative,?Follow-Up for Depression?: review of PHQ-9 found negative result, no follow-up needed.?Communication Needs:?Communication Needs?Does the patient have a hearing impairment?No,?Does the patient have a vision impairment??Yes,?If yes, what is the vision impairment??Glasses,?Does the patient have a cognition impairment??No.?SDOH Questions:?SDOH Questions?In the past year have you been worried about losing housing??No,?In the past year have you or any family members you live with been unable to get any of the following when it was really needed? Check all that apply:?None.?Fall Risk:?History?Have you had any falls with injury in the past year??No,?Have you had two or more falls in the past year??No.?Symptom(s):? patient is a 73 yo female here for review of recent labs and follow up of chronic issues, including follow up of bp. * ROS:?General/Constitutional:?Patient denies?chills, fatigue, fever, headache.?ENT:?Patient denies?decreased sense of smell, any loss of taste, sore throat.?Respiratory:?Patient denies?shortness of breath at rest, shortness of breath with exertion.?Cardiovascular:?Patient denies?chest pain with exertion, chest pain at rest.?Gastrointestinal:?Patient denies?change in bowel habits, abdominal pain.?Genitourinary:?Patient denies?difficulty urinating, frequent urination.?Musculoskeletal:?Patient denies?muscle aches.?Peripheral Vascular:?Patient denies?red and blue toes.? * Medical History:? * Surgical History:? * Hospitalization/Major Diagno stic Procedure:? * Family History:?Father: dece ased 72 yrs.?Mother: 90 yrs, stroke.?1 son(s) , 2 daughter(s) - healthy. .? Father- MS MOther- Old age, Denies mental health/substance abuse family history, No pertinent family medical history, No pertinent family medical history, No pertinent family medical history. * Social History:?Tobacco Use:?Tobacco Use/Smoking?Patient is a?nonsmoker,?Additional Findings: Tobacco Non-User?Current non-smoker, currently using no form of tobacco.?Drugs/Alcohol:?Alcohol Screen?Did you have a drink containing alcohol in the past year??No,?Points?0,?Interpretation?Negative.?Miscellaneous:?Caffeine: yes, frequency:, 2-3 cups per day. Children: yes. no Community involvements. Exercise: yes, walking daily and a bike daily gets 10,000 steps a day. Housing: owning. Living with: spouse. Marital status: . Occupation: retired. Pets: none. Travel outside of the [place]: yes, [place]. * Medications:?TakingValsartan -hydroCHLOROthiazide 320-12.5 MG Tablet 1 tablet Orally Once [...] reviewed and reconciled with the patient * Allergies:?Penicillin G Sodi um: hives - Allergyyes[Allergies Verified] Objective: * Vitals:?Ht: 65, Wt:180, BMI: 29.95, BP:156/62, Repeat BP:128/72 weight is down 4 pounds since 05-06-23. * ???Past Orders: ???Lab:Urine Culture (Order Date - 08/31/2023) (Collection Date - 08/31/2023) ? Value Reference Range ?Urine Culture Susceptibility not routinely performed on this isolate. - ?O:STRAGA Strep agalactiae (Grp B) - ???Lab:Vitamin D 25-OH Total (Order Date - 08/31/2023) (Collection Date - 08/31/2023) ? Value Reference Range ?Vitamin D 25-OH Total 89.1 >30 - ng/mL ???Lab:Microalbumin, Random (Order Date - 08/31/2023) (Collection Date - 08/31/2023) ? Value Reference Range ?Creatinine Urine 82.32 - m g/dL ?Microalbumin Urine < 5.0 - mg/L ?Microalbum Creatinine Ratio Ur TNP <30 - ug/mg cr ???Lab:Hemoglobin A1c (Order Date - 08/31/2023) (Collection Date - 08/31/2023) ? Value Reference Range ?Hemoglobin A1c % 5.8 <6. 0 - % ?Estimated Average Glucose 120 - mg/dL ???Lab:Complete Blood Count Auto Diff (Order Date - 08/31/2023) (Collection Date - 08/31/2023) ? Value Reference Range ?White Blood Count 5.9 4. 8-10.8 - X10*3/uL ?Red Blood Count 5.32 4.20 -5.50 - X10*6/uL ?Hemoglobin 15.4 12.0-16.0 - g/dl ?Hematocrit 46.3 37.0-47.0 - % ?Mean Corpuscular Volume 87.0 80.0-98.0 - fL ?Mean Corpuscular Hemoglobin 28.9 27.0-33.0 - pg ?Mean Corpuscular HGB Conc 33.3 31.0-35.0 - g/dl ?Red Cell Distribution Width 15.6 11.0-16.0 - % ?Platelet Count 309 160-4 00 - X10*3/uL ?Mean Platelet Volume 9.9 9.4-12.3 - fL ?Neutrophils Percent Auto 52.4 45-73 - % ?Imm Gran Pct Auto 0.2 0. 0-0.4 - % ?Lymphocytes Percent Auto 37.3 20-40 - % ?Monocytes Percent Auto 7.9 2-11 - % ?Eosinophils Percent Auto 1.7 0-4 - % ?Basophils Percent Auto 0.5 0-2 - % ?NRBC Pct Auto 0.0 0.0-0. 2 - /100WBC ?Neutrophils Absolute Auto 3.1 2.0-8.3 - x10*3/uL ?Imm Gran Abs Auto 0.01 0. 00-0.03 - X10*3/uL ?Lymphocytes Absolute Auto 2.2 1.2-4.9 - X10*3/uL ?Monocytes Absolute Auto 0.5 0.1-1.2 - X10*3/uL ?Eosinophils Absolute Auto 0.1 0.0-0.4 - X10*3/uL ?Basophils Absolute Auto 0.0 0.0-0.2 - X10*3/uL ?NRBC Abs Auto 0.000 0.0-0. 012 - X10*3/uL ???Lab:UA ClnCatch+Micro w/r flx Cult (Order Date - 08/31/2023) (Collection Date - 08/31/2023) ? Value Reference Range ?Color Urine Yellow - ?Appearance Urine Clear - ?PH 6.0 5.0-9.0 - ?Glucose Urine UA Negative Neg ative - mg/dL ?Urine Blood Negative Negative - ?Specific [place] - Urine 1.015 1.005-1.025 - ?Urine Protein Negative Neg-Tr jesus - mg/dL ?Urine Ketones Negative Negati ve - mg/dL ?Nitrite Urine Negative Negati ve - ?Leukocyte Esterase Urine Moderate (2+) A Negative - ?RBC Urine 0-2 0-2 - /HPF ?WBC Urine 11-20 A 0-5 - /HPF ?Squamous Epithelial Cell Urine 0-2 0-2 - /HPF ?Bacteria Urine None Seen None Seen - ?Hyaline Casts Urine 0-2 0-2 - /LPF ???Lab:Comprehensive [place]. P navya Fast (Order Date - 08/31/2023) (Collection Date - 08/31/2023) ? Value Reference Range ?Sodium 143 135-145 - mmo l/L ?Bilirubin Total 0.6 0.0- 1.0 - mg/dL ?Aspartate Amino Transferase 18 5-31 - U/L ?Alanine Aminotransferase 17 0-31 - U/L ?Total Protein 6.4 L 6.5-8. 0 - g/dL ?Albumin Level 3.7 3.5-5. 0 - g/dL ?Alkaline Phosphatase 81 39-117 - U/L ?Potassium 3.6 3.3-5.1 - mmol/L ?Chloride 107 96-108 - mm ol/L ?Carbon Dioxide 28 22-29 - mmol/L ?Anion Gap 12 12-20 - ?Blood Urea Nitrogen 14 9-16 - mg/dL ?Creatinine 0.74 0.5-1.4 - mg/dL ?Estimated Glomerular Filt Rate > 60 - ?Glucose Fasting 104 H 60-9 9 - mg/dL ?Calcium 9.3 8.4-10.2 - m g/dL ???Lab:Lipid Panel (Order Da te - 08/31/2023) (Collection Date - 08/31/2023) ? Value Reference Range ?Triglycerides 79 <150 - mg/dL ?Cholesterol 228 H <200 - m g/dL ?LDL Cholesterol Calculated 149 H <100 - mg/dL ?HDL Cholesterol 64 >40 - mg/dL * Examination: ???General Examination: ?GENERAL APPEARANCE:? alert, well hydrated, in no distress .?HEAD:? normocephalic.?EYES:? BOTH EYES, normal.?EARS:? BOTH EARS with cerumen.?THROAT:? uvula midline, tonsils normal, pharynx normal, no exudate.?NECK/THYROID:? no cervical lymphadenopathy, no carotid bruit.?SKIN:? good turgor.?HEART:? no murmurs, rubs, gallops, regular rate and rhythm.?LUNGS:? no wheezes, rales, rhonchi, good air movement, clear to auscultation bilaterally.?BREASTS:? declined.?ABDOMEN:? soft, nontender, nondistended, no rebound tenderness, no organomegaly , no masses palpable.?RECTAL EXAM:? declined.? Assessment: * Assessment: 1.?Essential hypertension - I10 (Primary)?2.?Vitamin D deficiency - E55.9?3.?Pure hypercholesterolemia - E78.00?4.?Prediabetes - R73.09?5.?Atrial fibrillation with RVR - I48.91?6.?Depression screening - Z13.31? Plan: * Treatment: 2.?Vitamin D deficiency? Notes: levels got too high so will stop.?? 3.?Pure hypercholesterolemia ? Notes: is fairly well controlled, will continue to monitor and will continue curent regiment.?? 4.?Prediabetes? Notes: still with good a1c, no need for for medication at this time.?? 5.?Atrial fibrillation with RVR? Continue Eliquis Tablet, 5 MG, TAKE ONE TABLET BY MOUTH TWICE A DAY.?? Notes: stable, will continue current regiment.?? 6.?Depression screening? Notes: negative screen.?? * Procedure Codes:? * Follow Up:?6 Months (Reason: bp) * * Sign off status: Completed true * Provider:?Alverto Baker MD Date:?0 09/21/2023 Generated for Vianney vaz/Danie/eTyanesmitting on:?07/06/2024 12:37 PM EST History and Physical Notes * HPI (History [...] Total Score: 0 Interpretation and Intervention Depression Augustinekain fareed Findings: Negative Follow-Up for Depression: : review [...] had two or more falls in the st year?: No Communication Needs Communication Needs Does the patient have a hearing impairment: No Does the patient have a vision impairmen t?: Yes ?If yes, what is the vision impairment?: Glasses [...]
--- OUTSIDE RECORDS SUMMARY | 2024-07-06 12:37 | XMS_ITS ---
Author Organization Alverto Baker MD Address [address] [place], [place] [phone] Care Team Providers Care Medication Nurse Name Role Phone Alverto Baker Primary Care [...] 09-21-23 Encounters Encounter Location Date Provider Diagnosis Alverto Baker MD [address] [place] [address] [place] [phone] 03/21/2024 Alverto Baker Prediabetes R73.09 ; Essential [...] adminstered Next Appt Details Provider Name:Alverto nicholson, 09/21/2024 07:00:00 AM, [address] [place] [address], [place] [address], [place], [place], [phone], Provider Name:Alverto nicholson, 09/28/2024 11:00:00 AM, [address] [place] [address], [address] [facility], [place], [place], [phone], Progress Notes * Kiara GARCIA ADOB: (73 yo F)Acc No.[id number]:03/21/2024 Progress Notes Patient:?Kiara Garcia Provider:?Alverto Baker MD :1950???Age:73 Y???Sex:Female D ate:03/21/2024 Address:[address], [place], [place] Subjective: * Chief Complaints: * ???6 month BP * HPI: ???Symptom(s):? patient is a 73 yo female here for 6 mnth follow up of her bp/ has been doing well. * ROS:?General/Constitutional:?Denies?Chills.?Denies?Fatigue.?Denies?Fever.?Denies?Headache.?ENT:?Patient denies?decreased sense of smell , any loss of taste , sore throat.?Denies?Sore throat.?Respiratory:?Denies?Cough.?Denies?Shortness of breath at rest.?Denies?Shortness of breath with exertion.?Gastrointestinal:?Denies?Diarrhea.?Denies?Nausea.?Musculoskeletal:?Patient denies?muscle aches.?Peripheral Vascular:?Patient denies?red and blue toes.? * Medical History:? * Surgical History:? * Hospitalization/Major Diagno stic Procedure:? * Medications:?TakingValsartan -hydroCHLOROthiazide 320-12.5 MG Tablet 1 [...] - Allergyyes[Allergies Verified] Objective: * Vitals:?Ht: 65, Wt:184, BMI: 30.62, BP:134/62 weight is up 4 pounds since 09-21-23. * Examination: ???General Examination: ?GENERAL APPEARANCE:?alert, well hydrated, in no distress.?SKIN:?good turgor.?HEART:?no murmurs, rubs, gallops , regular rate and rhythm.?LUNGS:?no wheezes, rales, rhonchi , good air movement , clear to auscultation bilaterally.? Assessment: * Assessment: 1.?Essential hypertension - I10 (Primary)?2.?Prediabetes - R73.09?3.?Encounter for immunization - Z23? Plan: * Treatment: 2.?Prediabetes?LAB: Hemoglobin A1c ? Value Reference Range ?Hemoglobin A1c 5.8 * Zena Mccall 4 11:05:35 AM EDT > ?LAB: Glucose, finger stick* ? Value Reference Range ?Value 112 * Zena Mccall 4 10:58:39 AM EDT > Notes: doing great. encouraged diet. stay away from the [facility], no need for medication at this time??3.?Encounter for immunization? Notes: flyu vaccine adminstered?? * Immunizations:? Influenza High Dose : 0.5 mL (Dose No:1) (Route: Intramuscular) given by Zena Mccall on Left Deltoid * Procedure Codes:?46901 ASSAY , GLUCOSE, BLOOD QUANT, Modifiers: QW 53472 GLYCATED HEMOGLOBIN TEST, Modifiers: QW 84581 FLU VACC PRSV FREE INC [id number] ADMN FLU VAC NO FEE SCHED SAME DAY * Preventive Medicine:? ??Immunizations:?Influenza?Have you had a flu shot since the most recent January 22??Yes.? * * Sign off status: Completed true * Provider:?Alverto Baker MD Date:?1 Generated for [place]ianney vaz/Danie/eTransmitting on:?07/06/2024 12:36 PM EST History and Physical Notes * [...]
--- OUTSIDE RECORDS SUMMARY | 2024-07-06 12:37 | XMS_ITS ---
Author Organization Alverto Baker MD Address [address] [place], [place] [id number] Care Team Providers Care Manager Systems Name Role Phone Alverto Baker Primary Care Provider Results Component Value Reference Range Notes Complete Blood Count Auto Di ff Reviewed date:08/31/2023 02:28:14 PM Interpretation: Performing Lab:[facility], [address] [place] [phone] Notes/Report: White Blood Count 5.9 4.8-10.8 X10*3/uL CBC w as verified by repeat analysis. Red Blood Count 5.32 4.20-5.50 X10*6/uL Hemoglobin 15.4 12.0-16.0 g/dl Hematocrit 46.3 37.0-47.0 % Mean Corpuscular Volume 87.0 80.0-98.0 fL Mean Corpuscular Hemoglobin 28.9 27.0-33.0 pg Mean Corpuscular HGB Conc 33.3 31.0-35.0 g/dl Red Cell Distribution Width 15.6 11.0-16.0 % Platelet Count 309 160-400 X10*3/uL Mean Platelet Volume 9.9 9.4-12.3 fL Neutrophils Percent Auto 52.4 45-73 % Imm Gran Pct Auto 0.2 0.0-0.4 % Lymphocytes Percent Auto 37.3 20-40 % Monocytes Percent Auto 7.9 2-11 % Eosinophils Percent Auto 1.7 0-4 % Basophils Percent Auto 0.5 0-2 % NRBC Pct Auto 0.0 0.0-0.2 /100WBC Neutrophils Absolute Auto 3.1 2.0-8.3 x10*3/u L Imm Gran Abs Auto 0.01 0.00-0.03 X10*3/uL Lymphocytes Absolute Auto 2.2 1.2-4.9 X10*3/u L Monocytes Absolute Auto 0.5 0.1-1.2 X10*3/uL Eosinophils Absolute Auto 0.1 0.0-0.4 X10*3/u L Basophils Absolute Auto 0.0 0.0-0.2 X10*3/uL NRBC Abs Auto 0.000 0.0-0.012 X10*3/uL Comprehensive [place]. Panel Fa st Reviewed date:08/31/2023 02:06:44 PM Interpretation: Performing Lab:[facility], [address] [place] [phone] Notes/Report: Sodium 143 135-145 mmol/L Potassium 3.6 3.3-5.1 mmol/L Chloride 107 96-108 mmol/L Carbon Dioxide 28 22-29 mmol/L Anion Gap 12 12-20 Blood Urea Nitrogen 14 9-16 mg/dL Creatinine 0.74 0.5-1.4 mg/dL Estimated Glomerular Filt Rate > 60 NOTE: For -[place]au[place] individuals, multiply the result by 1.210. Chronic Kidney Disease: Estimated GFR < 60 mL/min/1.73m2 Severe Kidney Disease: Estimated GFR < 15 mL/min/1.73m2 Glucose Fasting 104 60-99 mg/dL A fasting glucose from 100-125 mg/dl is considered impaired (pre-diabetes). Calcium 9.3 8.4-10.2 mg/dL Bilirubin Total 0.6 0.0-1.0 mg/dL Aspartate Amino Transferase 18 5-31 U/L Alanine Aminotransferase 17 0-31 U/L Total Protein 6.4 6.5-8.0 g/dL Albumin Level 3.7 3.5-5.0 g/dL Alkaline Phosphatase 81 39-117 U/L Lipid Panel Reviewed date:08/31/2023 02:00:01 PM Interpretation: Performing Lab:[facility], [address] [place] [phone] Notes/Report: Triglycerides 79 <150 mg/dL Desirable Triglyceride: less than 150 mg/dL Borderline High Triglyceride 150-199 mg/dL High Triglyceride: 200-499 mg/dL Very High Triglyceride: greater than or equal to 5OO mg/dL Cholesterol 228 <200 mg/dL Desirable Cholesterol: less than 200 mg/dL Borderline High Cholesterol: 200-239 mg/dL High Cholesterol: greater than 239 mg/dL LDL Cholesterol Calculated 149 <100 mg/dL Desirable LDL: less than 100 mg/dL Near Optimal/Above Optimal LDL: 110-129 mg/dL Borderline High LDL: 130-159 mg/dL High LDL: 160-189 mg/dL Very High LDL: greater than or equal to 190 mg/dL HDL Cholesterol 64 >40 mg/dL Desirable HDL: greater than 40 mg/dL Note: This HDL assay may give artificially low results in patients with liver disease. Vitamin D 25-OH Total Reviewed date:08/31/2023 02:15:54 PM Interpretation: Performing Lab:[address] [phone] Notes/Report: Vitamin D 25-OH Total 89.1 >30 ng/mL Health Based Reference Values* < 20 ng/mL Deficient 20-30 ng/mL Insufficient > 30 ng/mL Sufficient *John CISNEROS. N Engl J Med. 2007;357:266-280 Care must be taken in interpreting Vitamin D results from different laboratories and methodologies. Published data demonstrated that results from patients undergoing hemodialysis may show a negative bias when tested with various automated 25-OH vitamin D assays when compared to LC-MS/MS. When testing samples from patients whose predominant form of Vitamin D is Vitamin D2, such as patients receiving Vitamin D2 supplementation, results that are subtherapeutic should be confirmed with another method such as LC-MS/MS. Microalbumin, Random Reviewed date:08/31/2023 02:05:27 PM Interpretation: Performing Lab:[facility], [address] [place] [phone] Notes/Report: Creatinine Urine 82.32 Microalbumin Urine < 5.0 Microalbum/Creatinine Ratio Ur TNP <30 ug/mg cr Unable to calculate albumin/creatinine ratio due to low microalbumin or creatinine result. Hemoglobin A1c Reviewed date:08/31/2023 02:01:07 PM Interpretation: Performing Lab:[facility], [address] [place] [phone] Notes/Report: Hemoglobin A1c % 5.8 <6.0 % Hemoglobin A1C Reference Range Adults: 4.8 - 6.0 % Non diabetic: < 6.0 % Goal: < 7.0 % Additional Action Suggested: > 8.0 % Note: Hemoglobin A1c results are invalid for patients with abnormal amounts of HbF. Blood transfusions may impact the HbA1c concentration in the patient sample. Estimated Average Glucose 120 eAG = Estimated average glucose which is %A1C expressed as average glucose, using the formula of the Y6D-[place] Average Glucose study (ADAG), Diabetes Care, Vol.31,#8, Dec. 2007 UA ClnCatch+Micro w/rflx Cul t Reviewed date:08/31/2023 02:16:12 PM Interpretation: Performing Lab:[facility], [address] [place] [phone] Notes/Report: Urine, Clean Catch Color Urine Yellow Appearance Urine Clear PH 6.0 5.0-9.0 Glucose Urine UA Negative Negative mg/dL Urine Blood Negative Negative Specific [place] - Urine 1.015 1.005-1.025 Urine Protein Negative Neg-Trace mg/dL Urine Ketones Negative Negative mg/dL Nitrite Urine Negative Negative Leukocyte Esterase Urine Moderate (2+) Negative RBC Urine 0-2 0-2 /HPF WBC Urine 11-20 0-5 /HPF Squamous Epithelial Cell Urine 0-2 0-2 /HPF Bacteria Urine None Seen None Seen Hyaline Casts Urine 0-2 0-2 /LPF REASON FOR VISIT fasting yearly labs Encounters Encounter Location Date Provider Diagnosis Alverto Baker MD [address] [place] [address] [address] [place], [place] [phone] 08/31/2023 Alverto Baker Essential hypertensi on I10 ; Prediabetes R73.09 ; Pure hypercholesterolemia E78.00 ; Vitamin D deficiency E55.9 and Thrombocytopenia D69.6 Assessments Encounter Date Diagnosis (ICD Code) Assessment Notes Treatment Notes Treatment Clinical Notes Section Notes 08/31/2023 Essential hypertensi on (ICD-10 - I10) 08/31/2023 Prediabetes (ICD-10 - R73.09) 08/31/2023 Pure hypercholesterolemia (ICD-10 - E78.00) 08/31/2023 Vitamin D deficiency (ICD-10 - E55.9) 08/31/2023 Thrombocytopenia (IC D-10 - D69.6) Plan Of Treatment Next Appt Details Provider Name:Alverto Ball ier, 09/21/2024 07:00:00 AM, [address], [address], [place], [place], [id number], Provider Name:Alverto Ball ier, 09/28/2024 11:00:00 AM, [address] [facility], [address], [place], [place], [id number], Progress Notes * RADHA Kiara ADOB: (74 yo F)Acc No.[id number]:08/31/2023 Progress Note Patient:?Kiara GARCIA Provider:?Alverto Baker MD :1950???Age:73 Y???Sex:Female D ate:08/31/2023 [facility] [address] Subjective: * Chief Complaints: * ???1. Fasting yearly labs. * Medical History:? Objective: * Vitals:? Assessment: * Assessment: 1.?Essential hypertension - I10 (Primary)???2.?Prediabetes - R73.09???3.?Pure hypercholesterolemia - E78.00???4.?Vitamin D deficiency - E55.9???5.?Thrombocytopenia - D69.6??? Plan: * Treatment: ?LAB: Microalbumin, Random (Collection Date & Time - 08/31/2023 08:15 AM) ?LAB: Hemoglobin A1c (Collection Date & Time - 08/31/2023 08:15 AM) ?LAB: UA ClnCatch+Micro w/rflx Cult (Collection Date & Time - 08/31/2023 08:15 AM)2.?Prediabetes?LAB: Complete Blood Count Auto Diff (Collection Date & Time - 08/31/2023 08:15 AM) ?LAB: Comprehensive [place]. Panel Fast (Collection Date & Time - 08/31/2023 08:15 AM) ?LAB: Lipid Panel (Collection Date & Time - 08/31/2023 08:15 AM) ?LAB: Vitamin D 25-OH Total (Collection Date & Time - 08/31/2023 08:15 AM)* Alverto Baker 08/31/2023 02:02:47 PM EDT >Alverto Baker 08/31/2023 02:02:48 PM EDT > needs to decrease her vit d by 50 %Zena Mccall 08/31/2023 02:15:25 PM EDT > Patient taking 25mcg QD, will stop until her physical 24 ?LAB: Microalbumin, Random (Collection Date & Time - 08/31/2023 08:15 AM) ?LAB: Hemoglobin A1c (Collection Date & Time - 08/31/2023 08:15 AM) ?LAB: UA ClnCatch+Micro w/rflx Cult (Collection Date & Time - 08/31/2023 08:15 AM)3.?Pure hypercholesterolemia?LAB: Complete Blood Count Auto Diff (Collection Date & Time - 08/31/2023 08:15 AM) ?LAB: Comprehensive [place]. Panel Fast (Collection Date & Time - 08/31/2023 08:15 AM) ?LAB: Lipid Panel (Collection Date & Time - 08/31/2023 08:15 AM) ?LAB: Vitamin D 25-OH Total (Collection Date & Time - 08/31/2023 08:15 AM)* Alverto Baker 08/31/2023 02:02:47 PM EDT >Alverto Baker 08/31/2023 02:02:48 PM EDT > needs to decrease her vit d by 50 %Zena Mccall 08/31/2023 02:15:25 PM EDT > Patient taking 25mcg QD, will stop until her physical 30-24 ?LAB: Microalbumin, Random (Collection Date & Time - 08/31/2023 08:15 AM) ?LAB: Hemoglobin A1c (Collection Date & Time - 08/31/2023 08:15 AM) ?LAB: UA ClnCatch+Micro w/rflx Cult (Collection Date & Time - 08/31/2023 08:15 AM)4.?Vitamin D deficiency?LAB: Complete Blood Count Auto Diff (Collection Date & Time - 08/31/2023 08:15 AM) ?LAB: Comprehensive [place]. Panel Fast (Collection Date & Time - 08/31/2023 08:15 AM) ?LAB: Lipid Panel (Collection Date & Time - 08/31/2023 08:15 AM) ?LAB: Vitamin D 25-OH Total (Collection Date & Time - 08/31/2023 08:15 AM)* Alverto Baker 08/31/2023 02:02:47 PM EDT >Alverto Baker 08/31/2023 02:02:48 PM EDT > needs to decrease her vit d by 50 %AroldoseanSolitarioZena B 08/31/2023 02:15:25 PM EDT > Patient taking 25mcg QD, will stop until her physical 30-24 ?LAB: Microalbumin, Random (Collection Date & Time - 08/31/2023 08:15 AM) ?LAB: Hemoglobin A1c (Collection Date & Time - 08/31/2023 08:15 AM) ?LAB: UA ClnCatch+Micro w/rflx Cult (Collection Date & Time - 08/31/2023 08:15 AM)5.?Thrombocytopenia?LAB: Complete Blood Count Auto Diff (Collection Date & Time - 08/31/2023 08:15 AM) ?LAB: Comprehensive [place]. Panel Fast (Collection Date & Time - 08/31/2023 08:15 AM) ?LAB: Lipid Panel (Collection Date & Time - 08/31/2023 08:15 AM) ?LAB: Vitamin D 25-OH Total (Collection Date & Time - 08/31/2023 08:15 AM)* Alverto Baker 08/31/2023 02:02:47 PM EDT >Alverto Baker 08/31/2023 02:02:48 PM EDT > needs to decrease her vit d by 50 %Zena Mccall 08/31/2023 02:15:25 PM EDT > Patient taking 25mcg QD, will stop until her physical 430-24 ?LAB: Microalbumin, Random (Collection Date & Time - 08/31/2023 08:15 AM) ?LAB: Hemoglobin A1c (Collection Date & Time - 08/31/2023 08:15 AM) ?LAB: UA ClnCatch+Micro w/rflx Cult (Collection Date & Time - 08/31/2023 08:15 AM) * Procedure Codes:?22699 VENIP UNCT, ROUTINE* * * The named appointment provid er may or may not be the originator of this progress note, and it is not deemed complete until electronically signed by the appointment provider. Sign off status: Pending * Provider:?Alverto Baker MD Date:?0 08/31/2023 Generated for Vianney vaz/Danie/Madisonitting on:?07/06/2024 12:36 PM EST
--- NOTE | 2024-07-06 12:41 | A.OFFVIS_ITS ---
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 She is currently maintained on a combination of diltiazem as well as Toprol. In 2022, she had a mechanical fall and that led to [facility] hospitalization. She had a large flank hematoma. After that, she was administered Kcentra. She had lowish blood pressures and after that, it seems her blood pressure medications were stopped completely. That was only fall and she does not have recurrent falls. During follow-up visits, blood pressure medications were put back on. However, today's blood pressure is still on the higher side. Overall, she states she feels fine. No new concerns. [facility] Medical History Cataract Osteopenia Atrial flutter with rapid ventricular response Essential hypertension Paroxysmal atrial flutter Surgical History Hx of cataract removal with insertion of prosthetic lens History of section Family History Father No problems noted. Mother No problems noted. Social History Household Members: Spouse Household Members Other:: Alcohol intake: former Patient Tobacco Use Status: Never used Tobacco Review of Systems Const Denies chills, Denies fatigue, Denies fever(s), Denies weight gain and Denies weight loss ENT Denies dizziness Card Denies chest pain, Denies leg edema, Denies lightheadedness, Denies palpitations, Denies dyspnea on exertion, Denies orthopnea and Denies other Resp Denies cough and Denies dyspnea on exertion GI Denies hematochezia and Denies change in stool character Musc Denies abnormal gait, Denies muscle weakness, Denies numbness, Denies radiating pain into limb and Denies tingling Neuro Denies abnormal gait, Denies dizziness, Denies numbness and Denies tingling Endo Denies fatigue and Denies palpitations Physical Exam Vital Signs: Last Vital Signs Pulse 60 07/06/24 12:42 BP 154/60 H 07/06/24 12:42 BMI result Body Mass Index 31.2 Const General: comfortable and no acute distress Orientation/consciousness: patient oriented x3 HEENT Other: Unremarkable Head: Yes normal to inspection Neck Neck: Yes normal visual inspection Chest Chest palpation & inspection: normal inspection of the chest Resp Auscultation: clear to auscultation bilaterally Cardio Palpation: normal PMI Heart sounds: S1 normal heart sound present, S2 normal heart sound present, no gallops, no murmurs and no rubs GI Palpation (GI): Soft to palpation Back/Spine/Pelvis Other: unremarkable Skin General skin exam: no rashes or lesions noted Neuro General: patient oriented x3 Extrem General: Yes normal to inspection Psych Mental Status: mental status grossly normal Office Procedures EKG Details: EKG with sinus rhythm at 60/Min; cannot exclude old anterior infarct; normal VT/[place]. [id number]-[id number], Complete Assessment & Plan Assessment & Plan (1) Paroxysmal atrial flutter: Code(s): I48.92 - Unspecified atrial flutter Category: Medical Plan: Stable on diltiazem/metoprolol. Continue Eliquis. Of note, in the echocardiogram, thought to have normal biatrial size. In the coronary CTA, described to have moderate left atrial enlargement. (2) Essential hypertension: Code(s): I10 - Essential (primary) hypertension Category: Medical Plan: On valsartan/hydrochlorothiazide. Blood pressure is still on the higher side. Add spironolactone. Check BMP in a few days. (3) Abnormal nuclear cardiac imaging test: Code(s): R93.1 - Abnormal findings on diagnostic imaging of heart and coronary circulation Category: Medical Plan: Myocardial perfusion imaging study shows equivocal area of mild intensity infero-apical ischemia. Coronary CT however does not show any significant disease. The midportion of right PDA was somewhat obscured, but based on description, thought to be rather motion artifact than significant stenosis. Clinically, she does not have any angina. (4) JORDAN (obstructive sleep apnea): Code(s): G47.33 - Obstructive sleep apnea (adult) (pediatric) Category: Medical Plan: Home sleep study shows mild degree of JORDAN. Weight loss, sleep in lateral position. Plan Discussed with . Orders: Orders Basic Metabolic Panel 2 Weeks I10 - Essential (primary) hypertension Medications: New spironolactone 25 mg PO DAILY 90 tabs 1RF Coding Level of Care Code Est Pt Level 4 (30443) Diagnoses Paroxysmal atrial flutter I48.92 Essential hypertension I10 Abnormal nuclear cardiac imaging test R93.1 JORDAN (obstructive sleep apnea) G47.33 CPT Codes EKG - CPT: 51097-Tgxfiiviodfsofwbz, Complete ([id number])
[2024-07-06 12:42] VITALS: BP 154/60; PULSE 60; BMI 31.2
== END 2024-07-06 13:06 | disposition home or self-care (01) ==
PROVIDERS: PCP Internal Medicine; Visit Provider Internal Medicine
DX: I48.92 Unspecified atrial flutter (principal); I10 Essential (primary) hypertension; R93.1 Abnormal findings on diagnostic imaging of heart and coronary circulation; G47.33 Obstructive sleep apnea (adult) (pediatric)
CPT/HCPCS: 93010; 99214

== ENCOUNTER → 2024-07-06 12:27 | Outpatient (BNVA) | payer MEDICARE, SELFPAY | PROVIDERS: PCP Internal Medicine; Visit Provider Internal Medicine | DX: I48.92 Unspecified atrial flutter (principal); I10 Essential (primary) hypertension; R93.1 Abnormal findings on diagnostic imaging of heart and coronary circulation; R94.31 Abnormal electrocardiogram [ECG] [EKG]; G47.33 Obstructive sleep apnea (adult) (pediatric) | CPT/HCPCS: 93005; 99212 ==

== ENCOUNTER 2024-07-19 09:05 | Outpatient (REF) | payer MEDICARE, SELFPAY ==
--- OUTSIDE RECORDS SUMMARY | 2024-07-19 10:01 | XMS_ITS ---
Author Organization Alverto Baker MD Address [address] [place], [place] [id number] Care Team Providers Care Strap Buckler Machine Name Role Phone Alverto Baker Primary Care Provider Results Component Value Reference Range Notes Complete Blood Count Auto Di ff Reviewed date:08/31/2023 02:28:14 PM Interpretation: Performing Lab:[facility], [address] [place] [phone] Notes/Report: White Blood Count 5.9 4.8-10.8 X10*3/uL [...] NRBC Abs Auto 0.000 0.0-0.012 X10*3/uL Comprehensive [place]. Panel Fa st Reviewed date:08/31/2023 02:06:44 PM Interpretation: Performing Lab:[facility], [address] [place] [phone] Notes/Report: Sodium 143 135-145 mmol/L Potassium 3.6 3.3-5.1 mmol/L Chloride 107 96-108 mmol/L Carbon Dioxide 28 22-29 mmol/L Anion Gap 12 12-20 Blood Urea Nitrogen 14 9-16 mg/dL Creatinine 0.74 0.5-1.4 mg/dL Estimated Glomerular Filt Rate > 60 NOTE: For -[place] individuals, multiply the result by 1.210. Chronic [...] Panel Reviewed date:08/31/2023 02:00:01 PM Interpretation: Performing Lab:[facility], [address] [place] [phone] Notes/Report: Triglycerides 79 <150 mg/dL Desirable Triglyceride: [...] Total Reviewed date:08/31/2023 02:15:54 PM Interpretation: Performing Lab:[address] [phone] Notes/Report: Vitamin D 25-OH Total 89.1 >30 [...] Random Reviewed date:08/31/2023 02:05:27 PM Interpretation: Performing Lab:[facility], [address] [place] [phone] Notes/Report: Creatinine Urine 82.32 Microalbumin Urine < 5.0 Microalbum/Creatinine Ratio Ur TNP <30 ug/mg cr Unable to calculate albumin/creatinine ratio due to low microalbumin or creatinine result. Hemoglobin A1c Reviewed date:08/31/2023 02:01:07 PM Interpretation: Performing Lab:[facility], [address] [place] [phone] Notes/Report: Hemoglobin A1c % 5.8 <6.0 % [...] average glucose, using the formula of the D4K-[place] Average Glucose study (ADAG), Diabetes Care, Vol.31,#8, Dec. 2007 UA ClnCatch+Micro w/rflx Cul t Reviewed date:08/31/2023 02:16:12 PM Interpretation: Performing Lab:[facility], [address] [place] [phone] Notes/Report: Urine, Clean Catch Color Urine Yellow Appearance Urine Clear PH 6.0 5.0-9.0 Glucose Urine UA Negative Negative mg/dL Urine Blood Negative Negative Specific [place] - Urine 1.015 1.005-1.025 Urine Protein Negative [...] Location Date Provider Diagnosis Alverto Baker MD [address] [place] [address] [address] [place], [place] [phone] 08/31/2023 Alverto Baker Essential hypertensi on I10 [...] Name:Alverto Ball ier, 09/21/2024 07:00:00 AM, [address], [address], [place], [place], [phone], Provider Name:Alverto Ball ier, 09/28/2024 11:00:00 AM, [address] [facility], [address], [place], [place], [phone], Progress Notes * RADHA Kiara ADOB: (74 yo F)Acc No.[id number]:08/31/2023 Progress Note Patient:?Kiara GARCIA Provider:?Alverto Baker MD :1950???Age:73 Y???Sex:Female D ate:08/31/2023 [facility] [address] [facility] Subjective: * Chief Complaints: * ???1. Fasting [...] Time - 08/31/2023 08:15 AM) ?LAB: Comprehensive [place]. Panel Fast (Collection Date & Time - [...] Time - 08/31/2023 08:15 AM) ?LAB: Comprehensive [place]. Panel Fast (Collection Date & Time - [...] Time - 08/31/2023 08:15 AM) ?LAB: Comprehensive [place]. Panel Fast (Collection Date & Time - [...] Time - 08/31/2023 08:15 AM) ?LAB: Comprehensive [place]. Panel Fast (Collection Date & Time - [...] Time - 08/31/2023 08:15 AM) * Procedure Codes:?18844 VENIP UNCT, ROUTINE* * * The named appointment provid er may or may not be the originator of this progress note, and it is not deemed complete until electronically signed by the appointment provider. Sign off status: Pending * Provider:?Alverto Baker MD Date:?0 08/31/2023 Generated for Vianney vaz/Danie/Madisonitting on:?07/19/2024 10:01 AM EST
--- OUTSIDE RECORDS SUMMARY | 2024-07-19 10:01 | XMS_ITS ---
Author Organization Alverto Baker MD Address [address] [place], [place] [phone] Care Team Providers Care Plate Shop Helper Name Role Phone Alverto Baker Primary Care [...] Location Date Provider Diagnosis Alverto Baker MD [address] [place] [address] [place] [phone] 03/21/2024 Alverto Baker Prediabetes R73.09 ; Essential [...] Details Provider Name:Alverto nicholson, 09/21/2024 07:00:00 AM, [address] [place] [address], [place] [address], [place], [place], [phone], Provider Name:Alverto nicholson, 09/28/2024 11:00:00 AM, [address] [place] [address], Suite [facility], [place], [place], [phone], Progress Notes * Kiara GARCIA ADOB: (73 yo F)Acc No.[id number]:03/21/2024 Progress Notes Patient:?Kiara Garcia Provider:?Alverto Baker MD :1950???Age:73 Y???Sex:Female D ate:03/21/2024 Address:[address], [place], [id number] Subjective: * Chief Complaints: * ???6 month [...] great. encouraged diet. stay away from the [facility], no need for medication at this time??3.?Encounter for immunization? Notes: flyu vaccine adminstered?? * Immunizations:? Influenza High Dose : 0.5 mL (Dose No:1) (Route: Intramuscular) given by Zena Mccall on Left Deltoid * Procedure Codes:?39352 ASSAY , GLUCOSE, BLOOD QUANT, Modifiers: QW 30117 GLYCATED HEMOGLOBIN TEST, Modifiers: QW 13346 FLU VACC PRSV FREE INC [id number] ADMN FLU VAC NO FEE SCHED SAME DAY * Preventive Medicine:? ??Immunizations:?Influenza?Have you had a flu shot since the most recent January 22??Yes.? * * Sign off status: Completed true * Provider:?Alverto Baker MD Date:?1 Generated for Vianney vaz/Danie/eTransmitting on:?07/19/2024 10:01 AM EST History and Physical Notes * HPI [...]
--- OUTSIDE RECORDS SUMMARY | 2024-07-19 10:02 | XMS_ITS ---
Author Organization Alverto Baker MD Address [address] [place], [place] [phone] Care Team Providers Care Agile Developer Name Role Phone Alverto Baker Primary Care [...] Date Provider Diagnosis Alverto Baker MD [address] [place], [place] [phone] 09/21/2023 Alverto Baker Vitamin D deficiency E55.9 [...] [address], [address], [place], [phone], Provider Name:Alverto Ball ier, 09/28/2024 11:00:00 AM, [address], [address], [place], [phone], Progress Notes * RADHA Kiara ADOB: 2 (73 yo F)Acc No.[id number]:09/21/2023 Progress Notes Patient:?Radha Kiara A Provider:?Alverto Baker MD :1950???Age:73 Y???Sex:Female D ate:09/21/2023 [address] [phone] Subjective: * Chief Complaints: * ???Review labsNO [...] Travel outside of the [place]: yes, [place]. * Medications:?TakingValsartan -hydroCHLOROthiazide 320-12.5 MG Tablet 1 [...] mg/dL ?Urine Blood Negative Negative - ?Specific [place] - Urine 1.015 1.005-1.025 - ?Urine Protein [...] Casts Urine 0-2 0-2 - /LPF ???Lab:Comprehensive [place]. P navya Fast (Order Date - 08/31/2023) [...] MD Date:?0 09/21/2023 Generated for Vianney vaz/Danie/eTyanesmitting on:?07/19/2024 10:01 AM EST History and Physical [...]
[2024-07-19 10:13] LABS: Anion Gap 11 (12-20); Blood Urea Nitrogen 17 mg/dL (9-16); Calcium 9.7 mg/dL (8.4-10.2); Carbon Dioxide 27 mmol/L (22-29); Chloride 105 mmol/L (96-108); Estimated Glomerular Filt Rate > 60; Glucose Random 109 mg/dL (60-115); Potassium 4.3 mmol/L (3.3-5.1); Sodium 139 mmol/L (135-145)
== END 2024-07-19 09:06 | disposition home or self-care (01) ==
LOC: HO.LAB 09:05
PROVIDERS: PCP Internal Medicine; Visit Provider Internal Medicine
DX: I10 Essential (primary) hypertension (principal)
CPT/HCPCS: 36415; 80048

== ENCOUNTER 2024-09-21 10:35 | Outpatient (REF) | payer MEDICARE, SELFPAY ==
[2024-09-21 10:41] LABS: MANUAL DIFF FLAG NO
[2024-09-21 10:53] LABS: Basophils Percent Auto 0.6 % (0-2); Eosinophils Absolute Auto 0.1 X10*3/uL (0.0-0.4); Eosinophils Percent Auto 2.1 % (0-4); Hematocrit 45.3 % (37.0-47.0); Hemoglobin 14.8 g/dl (12.0-16.0); Imm Gran Abs Auto 0.02 X10*3/uL (0.00-0.03); Imm Gran Pct Auto 0.3 % (0.0-0.4); Lymphocytes Absolute Auto 2.3 X10*3/uL (1.2-4.9); Lymphocytes Percent Auto 34.1 % (20-40); Mean Corpuscular HGB Conc 32.7 g/dl (31.0-35.0); Mean Corpuscular Hemoglobin 29.4 pg (27.0-33.0); Mean Corpuscular Volume 89.9 fL (80.0-98.0); Mean Platelet Volume 9.4 fL (9.4-12.3); Monocytes Absolute Auto 0.6 X10*3/uL (0.1-1.2); Monocytes Percent Auto 8.5 % (2-11); Neutrophils Absolute Auto 3.7 x10*3/uL (2.0-8.3); Neutrophils Percent Auto 54.4 % (45-73); Platelet Count 329 X10*3/uL (160-400); Red Blood Count 5.04 X10*6/uL (4.20-5.50); Red Cell Distribution Width 14.1 % (11.0-16.0); White Blood Count 6.7 X10*3/uL (4.8-10.8)
[2024-09-21 11:02] LABS: Estimated Average Glucose 126 mg/dL; Hemoglobin A1C 161.0461 umol/L; Total Hemoglobin (HGBA1C) 3857.0792 umol/L
[2024-09-21 11:06] LABS: Appearance Urine Clear; Color Urine Yellow; Glucose Urine UA Negative (Negative); Leukocyte Esterase Urine Moderate (2+) (Negative); Nitrite Urine Negative (Negative); Specific Gravity - Urine 1.015 (1.005-1.025); UMIC TRIGGER UACC YES; Urine Blood Negative (Negative); Urine Ketones Negative (Negative); Urine Protein Negative (Neg-Trace)
[2024-09-21 11:11] LABS: Bacteria Urine None Seen (None Seen); Hyaline Casts Urine 0-2 /LPF (0-2); RBC Urine 0-2 /HPF (0-2); Squamous Epithelial Cell Urine 0-2 /HPF (0-2); UACC Culture Trigger YES
[2024-09-21 11:20] LABS: Creatinine Urine 94.12 mg/dL; Microalbum/Creatinine Ratio Ur 31.8 ug/mg cr (<30)
[2024-09-21 11:28] LABS: Alanine Aminotransferase 14 U/L (0-31); Alkaline Phosphatase 75 U/L (39-117); Anion Gap 11 (12-20); Aspartate Amino Transferase 23 U/L (5-31); Bilirubin Total 0.5 mg/dL (0.0-1.0); Blood Urea Nitrogen 21 mg/dL (9-16); Calcium 9.8 mg/dL (8.4-10.2); Carbon Dioxide 27 mmol/L (22-29); Chloride 106 mmol/L (96-108); Cholesterol 212 mg/dL (<200); Estimated Glomerular Filt Rate 54; Glucose Fasting 109 mg/dL (60-99); HDL Cholesterol 54 mg/dL (>40); LDL Cholesterol Calculated 132 mg/dL (<100); Potassium 4.3 mmol/L (3.3-5.1); Sodium 140 mmol/L (135-145); Total Protein 6.7 g/dL (6.5-8.0); Triglycerides 131 mg/dL (<150); Vitamin D 25-OH Total 54.6 ng/mL (>30)
== END 2024-09-21 10:36 | disposition home or self-care (01) ==
LOC: HO.LNP 10:35
PROVIDERS: Visit Provider Internal Medicine
DX: I10 Essential (primary) hypertension (principal); E78.00 Pure hypercholesterolemia, unspecified; E55.9 Vitamin D deficiency, unspecified; R73.03 Prediabetes; D69.6 Thrombocytopenia, unspecified
CPT/HCPCS: 80053; 80061; 81001; 82043; 82306; 82570; 83036; 85025; 87086

== ENCOUNTER 2025-01-03 09:01 | Outpatient (AMB) | payer MEDICARE, SELFPAY ==
[2025-01-03 09:03] VITALS: BP 120/60; PULSE 60; BMI 28.2
--- NOTE | 2025-01-03 09:03 | A.OFFVIS_ITS ---
Vital Signs 01/03/25 09:03 Height 5 ft 5 in Weight 169 lb 12.095 oz BMI 28.2 BP 120/60 Blood Pressure Location Lt brachial Position Sitting Pulse 60 Pulse Source Pulse Oximeter Intake Visit Reasons: 6m follow up Allergies Penicillins Allergy (Unknown, Verified 08/09/23 11:48) HIVES Medication List - Last Reconciled 01/03/25 by Taurus Grover MD apixaban (Eliquis) 5 mg PO BID diltiazem HCl CD 240 mg PO DAILY metoprolol succinate ER 50 mg PO DAILY spironolactone 25 mg PO DAILY valsartan-hydrochlorothiazide 320-12.5 mg 1 tab PO DAILY HPI Comments Details: Kiara returns for follow-up regarding atrial fibrillation. She is currently maintained on a combination of diltiazem and metoprolol. In 2022, she had a mechanical fall and that led to [facility] hospitalization. She had a large flank hematoma. After that, she was administered Kcentra. She had lowish blood pressures and after that, it seems her blood pressure medications were stopped completely. That was only fall and she does not have r ecurrent falls. During follow-up visits, blood pressure medications were put back on. In the last few months, she has been losing a lot of weight and feels good in that regard. Otherwise, no new cardiac concerns. [facility], [facility] Medical History Cataract Osteopenia Atrial flutter with rapid ventricular response Essential hypertension Paroxysmal atrial flutter Surgical History Hx of cataract removal with insertion of prosthetic lens History of section Family History Father No problems noted. Mother No problems noted. Social History Household Members: Spouse Household Members Other:: Alcohol intake: former Patient Tobacco Use Status: Never used Tobacco Review of Systems Const Denies weakness ENT Denies dizziness Card Denies chest pain, Denies chest pain with activity, Denies syncope, Denies rapid heart rate, Denies pedal edema, Denies edema, Denies leg edema, Denies lightheadedness, Denies palpitations, Denies dyspnea, Denies dyspnea on exertion and Denies orthopnea Resp Denies cough, Denies dyspnea and Denies dyspnea on exertion GI Denies hematochezia and Denies change in stool character Musc Denies abnormal gait, Denies muscle cramps, Denies muscle weakness, Denies numbness, Denies radiating pain into limb and Denies tingling Neuro Denies abnormal gait, Denies dizziness, Denies syncope, Denies numbness, Denies tingling and Denies weakness Endo Denies palpitations Physical Exam Vital Signs: Last Vital Signs Pulse 60 01/03/25 09:03 BP 120/60 01/03/25 09:03 BMI result Body Mass Index 28.2 Const General: comfortable and no acute distress Orientation/consciousness: patient oriented x3 HEENT Other: Unremarkable Head: Yes normal to inspection Neck Neck: Yes normal visual inspection Chest Chest palpation & inspection: normal inspection of the chest Resp Auscultation: clear to auscultation bilaterally Cardio Palpation: normal PMI Heart sounds: S1 normal heart sound present, S2 normal heart sound present, no gallops, no murmurs and no rubs GI Palpation (GI): Soft to palpation Back/Spine/Pelvis Other: unremarkable Skin General skin exam: no rashes or lesions noted Neuro General: patient oriented x3 Extrem General: Yes normal to inspection Psych Mental Status: mental status grossly normal Assessment & Plan Assessment & Plan (1) Paroxysmal atrial flutter: Code(s): I48.92 - Unspecified atrial flutter Category: Medical Plan: Stable on diltiazem/metoprolol. Continue Eliquis. Of note, in the echocardiogram, thought to have normal biatrial size. In the coronary CTA, described to have moderate left atrial enlargement. (2) Essential hypertension: Code(s): I10 - Essential (primary) hypertension Category: Medical Plan: On valsartan, hydrochlorothiazide, spironolactone. Stable. (3) Abnormal nuclear cardiac imaging test: Code(s): R93.1 - Abnormal findings on diagnostic imaging of heart and coronary circulation Category: Medical Plan: Myocardial perfusion imaging study shows equivocal area of mild intensity infero-apical ischemia. Coronary CT however does not show any significant disease. The midportion of right PDA was somewhat obscured, but based on description, thought to be rather motion artifact than significant stenosis. Clinically, she does not have any angina. (4) JORDAN (obstructive sleep apnea): Code(s): G47.33 - Obstructive sleep apnea (adult) (pediatric) Category: Medical Plan: Home sleep study shows mild degree of JORDAN. With ongoing weight loss, most likely has improved. Plan Discussion Notes During the visit, we discussed the importance of maintaining current dietary and exercise habits to support ongoing weight loss and overall health. We also reviewed the patient's history of mild sleep apnea and agreed that continued weight loss could potentially alleviate symptoms without the need for a CPAP machine. A follow-up appointment was scheduled for six months to reassess progress and make any necessary adjustments to the management plan. Patient was informed and verbally consented to the use of an ambient scribe for clinic note documentation during this visit. Patient Instructions: - Continue current diet and exercise routine to support weight loss. - Monitor for any changes in symptoms and report if they worsen. - Attend follow-up appointment in six months to review progress. Coding Level of Care Code Est Pt Level 4 (43187) Complex EM visit Add On G2211 Diagnoses Paroxysmal atrial flutter I48.92 Essential hypertension I10 Abnormal nuclear cardiac imaging test R93.1 JORDAN (obstructive sleep apnea) G47.33
--- OUTSIDE RECORDS SUMMARY | 2025-01-03 09:22 | XMS_ITS | Patient Health Record ---
Author Organization Alverto Baker MD Address [address] [place], [place] [id number] Care Team Providers Care Emery Wheel Molder Name Role Phone Alverto Baker Primary Care Provider [phone] Allergies Allergen (clinical drug ingredient) Drug/Non Drug Allergy documented on EMR Reaction Allergy Type Onset Date Status penicillin G Penicillin G Sodium hives Drug Allergy Active Results Component Value Reference Range Notes Hemoglobin A1c Reviewed date:03/21/2024 11:05:36 AM Interpretation: Performing Lab: Notes/Report: Hemoglobin A1c 5.8 Complete Blood Count Auto Di ff Reviewed date:09/24/2024 03:49:42 PM Interpretation: Performing Lab:[facility], [address] [place] [phone] Notes/Report: White Blood Count 6.7 4.8-10.8 X10*3/uL [...] 0.0-0.2 /100WBC Neutrophils Absolute Auto 3.7 2.0-8.3 x10*3/uL Imm Gran Abs Auto 0.02 0.00-0.03 X10*3/uL Lymphocytes Absolute Auto 2.3 1.2-4.9 X10*3/uL Monocytes Absolute Auto 0.6 0.1-1.2 X10*3/uL Eosinophils Absolute Auto 0.1 0.0-0.4 X10*3/uL Basophils Absolute Auto 0.0 0.0-0.2 X10*3/uL NRBC Abs Auto 0.000 0.0-0.012 X10*3/uL Comprehensive [place]. Panel Fa st Reviewed date:09/21/2024 05:01:20 PM Interpretation: Performing Lab:[facility], [address] [place] [phone] Notes/Report: Sodium 140 135-145 mmol/L Potassium 4.3 [...] Panel Reviewed date:09/21/2024 05:02:26 PM Interpretation: Performing Lab:[facility], [address] [place] [phone] Notes/Report: Triglycerides 131 <150 mg/dL Desirable Triglyceride: [...] Total Reviewed date:09/21/2024 05:02:36 PM Interpretation: Performing Lab:[facility], [address] [place] [phone] Notes/Report: Vitamin D 25-OH Total 54.6 >30 [...] Random Reviewed date:09/21/2024 05:02:02 PM Interpretation: Performing Lab:[address] [phone] Notes/Report: Creatinine Urine 94.12 Microalbumin Urine 30.0 Microalbum/Creatinine Ratio Ur 31.8 <30 ug/mg cr Albumin/Creatinine Ratio Reference Ranges: Normal: < 30 ug/mg creatinine Microalbuminuria: 30 - 300 ug/mg creatinine Clinical Albuminuria: > 300 ug/mg creatinine Hemoglobin A1c Reviewed date:09/21/2024 05:02:12 PM Interpretation: Performing Lab:[address] [phone] Notes/Report: Hemoglobin A1c % 6.0 <6.0 % [...] average glucose, using the formula of the I5R-Exazubs Average Glucose study (ADAG), Diabetes Care, Vol.31,#8, Dec. 2007 UA ClnCatch+Micro w/rflx Cul t Reviewed date:09/22/2024 05:11:58 PM Interpretation: Performing Lab:[facility], [address] [place] [phone] Notes/Report: Urine, Clean Catch Color Urine Yellow Appearance Urine Clear PH 6.0 5.0-9.0 Glucose Urine UA Negative Negative mg/dL Urine Blood Negative Negative Specific Adrian - Urine 1.015 1.005-1.025 Urine Protein Negative Neg-Trace mg/dL Urine Ketones Negative Negative mg/dL Nitrite Urine Negative Negative Leukocyte Esterase Urine Moderate (2+) Negative RBC Urine 0-2 0-2 /HPF WBC Urine 11-20 0-5 /HPF Squamous Epithelial Cell Urine 0-2 0-2 /HPF Bacteria Urine None Seen None Seen Hyaline Casts Urine 0-2 0-2 /LPF Glucose, finger stick Reviewed date:03/21/2024 10:58:40 AM Interpretation: Performing Lab: Notes/Report: Value 112 MM tomosynthesis screening B I Reviewed date:02/13/2024 04:15:09 PM Interpretation: Performing Lab: Notes/Report: [place] [facility] [address] [place] [address] Mammography Report Signed Patient: Kiara Solano MR#: [id number] : 1950 Acct:[id number] Age/Sex: 73 / F ADM Date: 01/26/24 Loc: HO.MAMMO Attending Dr: Alverto Baker MD Ordering Physician: Alverto Baker MD Results: 1Ne gative Date of Service: 01/26/24 Follow Up: 1 Year From [facility] Mammogram Procedure(s): MM tomosynthesis screening BI Accession Number(s): [id number] cc: Alverto Baker MD EXAMINATION: MM SCREENING DIGITAL BREAST TOMOSYNTHESIS, BILATERAL CLINICAL INFORMATION: Screening. Asymptomatic. COMPARISON: Mammography: Comparison is made with available priors TECHNIQUE: Digital breast mammography with tomosynthesis is performed in both the craniocaudal and mediolateral oblique views along with computer-aided detection (CAD). FINDINGS: There are scattered areas of fibroglandular density (ACR BI-RADS breast composition Category b). There are no significant masses, abnormal calcifications, or other abnormalities. MM/MM tomosynthesis screening BI IMPRESSION: No mammographic evidence of malignancy. ASSESSMENT: BI-RADS BI-RADS 1 - Negative RECOMMENDATION: Routine annual mammography screening. 1 year F/U This examination should not preclude the clinical evaluation of a suspicious palpable abnormality. This patient's information was entered into a reminder system with a target due date for their next mammogram. Electronically signed by: Karlie Armenta DO 02/13/2024 09:14 AM EDT Dictated By: Karlie Armenta DO Signed By: <Electronically signed by Karlie Armenta DO in OV> 02/13/24 0914 DD/ 4 TD/TT: 01/26/24755 Community Mental Health Worker: [facility]'s [address] [place] [address] Mammography Report Signed Patient: Carlito Solano MR#: [id number] : 1950 Acct:[id number] Age/Sex: 73 / F ADM Date: 01/26/24 Loc: HO.MAMMO Attending Dr: Alverto Baker MD Ordering Physician: Alverto Baker MD Results: 1Ne gative Date of Service: 01/26/24 Follow Up: 1 Year From [facility]amm[facility] Procedure(s): MM tomosynthesis screening BI Accession Number(s): [id number] cc: Alverto Baker MD EXAMINATION: MM SCREENING DIGITAL BREAST TOMOSYNTHESIS, BILATERAL CLINICAL INFORMATION: Screening. Asymptomatic. COMPARISON: Mammography: Comparison is made with available priors TECHNIQUE: Digital breast mammography with tomosynthesis is performed in both the craniocaudal and mediolateral oblique views along with computer-aided detection (CAD). FINDINGS: There are scattered areas of fibroglandular density (ACR BI-RADS breast composition Category b). There are no significant masses, abnormal calcifications, or other abnormalities. MM/MM tomosynthesis screening BI IMPRESSION: No mammographic evidence of malignancy. ASSESSMENT: BI-RADS BI-RADS 1 - Negative RECOMMENDATION: Routine annual mammography screening. 1 year F/U This examination should not preclude the clinical evaluation of a suspicious palpable abnormality. This patient's information was entered into a reminder system with a target due date for their next mammogram. Electronically ines d by: Karlie Armenta DO 02/13/2024 09:14 AM EDT Dictated By: Karlie Armenta DO Signed By: <Electronically signed by Karlie Armenta DO in OV> 02/13/24913 DD/ 4 TD/TT: 01/26/24755 Community Mental Health Worker: Basic Metabolic Panel Reviewed date:07/19/2024 01:22:37 PM Interpretation: Performing Lab:[facility], [address] [place] [address] [place] [phone] Notes/Report: Sodium 139 135-145 mmol/L Potassium 4.3 3.3-5.1 mmol/L Chloride 105 96-108 mmol/L Carbon Dioxide 27 22-29 mmol/L Anion Gap 11 12-20 Blood Urea Nitrogen 17 9-16 mg/dL Creatinine 0.82 0.5-1.4 mg/dL Estimated Glomerular Filt Rate > 60 Chronic Kidney Disease: Estimated GFR < 60 mL/min/1.73m2 Severe Kidney Disease: Estimated GFR < 15 mL/min/1.73m2 Glucose Random 109 60-115 mg/dL Calcium 9.7 8.4-10.2 mg/dL Hold Gold Reviewed date:09/21/2024 05:00:39 PM Interpretation: Performing Lab:[address] [phone] Notes/Report: Reji Billy See Note Specimen held untested for 24 hours; Call to request Chemistry testing. Urine Culture Reviewed date:09/22/2024 12:30:41 PM Interpretation: Performing Lab:[address] [phone] Notes/Report: Urine Culture Report Result Urine Culture 50,000 to 100,000 cfu/ml Urine Culture Mixed bacterial sam a characteristic of Urine Culture urogenital contamination. Reason For Referral No Information Medications Medication SIG (Take, Route, Frequency, Duration) Notes Start Date End Date Status Valsartan-hydroCHLOROthiazid e 320-12.5 MG 1 tablet Orally Once a day Active Eliquis 5 MG TAKE ONE TABLET BY M OUTH TWICE A DAY Active Spironolactone 25 MG 1 tablet Orally Active dilTIAZem HCl ER Coated Beads 240 MG TAKE ONE CAPSULE BY MOUTH EVERY DAY ON AN EMPTY STOMACH for 60 Active Metoprolol Succinate ER 50 MG TAKE ONE TABLET BY MOUTH EVERY DAY for 30 Active Immunizations Vaccine Route Administration Date Status Comme nts TDaP IM Intramuscular 05/04/2013 Administered Fluarix Quadrivalent IM Intramuscular 05/23/2019 Administe red Covid Vaccine Unknown 07/28/2020 Administered Pfizer SARS-COV-2 Pfizer Unknown 08/18/2020 Administered Influenza High Dose IM Intramuscular 02/20/2021 Administer ed SARS-COV-2 Pfizer Unknown 03/20/2021 Administered Influenza High Dose IM Intramuscular 02/26/2022 Administer ed Influenza High Dose IM Intramuscular 04/08/2023 Administer ed Influenza High Dose IM Intramuscular 03/21/2024 Administer ed Flu Vaccine Unknown 03/16/2014 Refused zFluzone Quadrivalent Unknown 06/14/2015 Refused Fluarix Quadrivalent Unknown 04/09/2017 Refused PPSV23 (Pnemovax) Unknown 10/19/2017 Refused PPSV23 (Pnemovax) Unknown 05/29/2019 Refused Shingrix Unknown 05/03/2020 Refused Fluarix Quadrivalent Unknown 03/11/2020 Pending [employer] Social History Tobacco Use: Social History Observation [...] ast year? No Points 0 Interpretation Negative Problems Problem Type SNOMED Code ICD Code Onset Dates Problem Status W/U Status Risk Notes Problem 477096441 Thrombocytopenia (D69.6) Active confirmed Problem 95695300 Vitamin D defici ency (E55.9) Active confirmed Problem 08188572 Essential hypert ension (I10) Active confirmed Problem 0999240 Prediabetes (R73.09) Active confirmed Problem Osteoporosis (61331226) Osteoporosis (M81.0) Active confirmed Problem 267718456 Irregular heart beat (I49.9) Active confirmed Problem 13999886 Aortic stenosis (Q25.3) Active confirmed Problem 954041640 Elevated LDL cholesterol level (E78.00) Active confirmed Problem 836346595 Pure hypercholesterolemia (E78.00) Active confirmed Problem 8347844811247 Bilateral tinnit us (H93.13) Active confirmed Problem 363390402 Osteopenia, unspecified location (M85.80) Active confirmed Problem 537552103 Body mass index (BMI) of 30.0-30.9 in adult (Z68.30) Active confirmed Problem 09998901 Inflamed gum (K05.10) Active confirmed Problem 260136123 Arthritis of carpometacarpal (CMC) joint of thumb (M18.10) Active confirmed Problem 052616409 Atrial flutter b y electrocardiogram (I48.92) Active confirmed Problem 916085939230950 Atrial fibrillat ion with RVR (I48.91) Active confirmed Problem 781233835 Age-related inci pient cataract, unspecified laterality (H25.099) Active confirmed Problem 07810142 Senile cataract, unspecified age-related cataract type, unspecified laterality (H25.9) Active confirmed Vital Signs Blood pressure diastolic 64 mm Hg 09/28/2024 lino ght is down 2 pounds since 03-21-24 Height 65 in 09/28/2024 weight is down 2 pounds since 03-21-24 Blood pressure systolic 122 mm Hg 09/28/2024 weig ht is down 2 pounds since 03-21-24 Weight 182 lbs 09/28/2024 weight is down 2 pounds since 03-21-24 BMI 30.28 kg/m2 09/28/2024 weight is down 2 pounds since 03-21-24 Encounters Encounter Location Date Provider Diagnosis Alverto Baker MD [address] [place] [address] [id number] 09/21/2024 Alverto Baker Essential hypertensi on I10 ; Pure hypercholesterolemia E78.00 ; Prediabetes R73.09 ; Vitamin D deficiency E55.9 and Thrombocytopenia D69.6 Alverto Baker MD [address] [place] [address] [id number] 03/21/2024 Alverto Baker Prediabetes R73.09 ; Essential hypertension I10 and Encounter for immunization Z23 Alverto Baker MD [address] [place] [address] [id number] 09/28/2024 Alverto Baker Atrial fibrillation with RVR I48.91 ; Prediabetes R73.09 ; Essential hypertension I10 ; Pure hypercholesterolemia E78.00 ; Vitamin D deficiency E55.9 and Depression screening Z13.31 Alverto Baker MD [address] [place] [address] [id number] 08/21/2024 Alverto Baker Assessments Encounter Date Diagnosis (ICD Code) Assessment Notes Treatment Notes Treatment Clinical Notes Section Notes 09/21/2024 Essential hypertensi on (ICD-10 - I10) 03/21/2024 Prediabetes (ICD-10 - R73.09) doing great. encouraged diet. [facility], no need for medication at this time 03/21/2024 Essential hypertensi on (ICD-10 - I10) stable , is at goal, will continue current regiment 09/28/2024 Atrial fibrillation with RVR (ICD-10 - I48.91) not having any problems, will continue current regiment 09/28/2024 Prediabetes (ICD-10 - R73.09) good a1c. continue with diet, no need for medication at this time 09/21/2024 Pure hypercholesterolemia (ICD-10 - E78.00) 03/21/2024 Encounter for immunization (ICD-10 - Z23) flyu vaccine adminstered 09/28/2024 Essential hypertensi on (ICD-10 - I10) well controlled, will continue current regiment 09/21/2024 Prediabetes (ICD-10 - R73.09) 09/28/2024 Pure hypercholesterolemia (ICD-10 - E78.00) stable, will contiue to monitor diet 09/21/2024 Vitamin D deficiency (ICD-10 - E55.9) 09/28/2024 Vitamin D deficiency (ICD-10 - E55.9) stable, will continue to monitor 09/21/2024 Thrombocytopenia (ICD-10 - D69.6) 09/28/2024 Depression screening (ICD-10 - Z13.31) negative screen Plan Of Treatment Pending Test Test Name Order Date Electrocardiogram (EKG) 10/29/2017 Electrocardiogram (EKG) 11/17/2018 Electrocardiogram (EKG) 10/04/2015 Electrocardiogram (EKG) 10/09/2016 CULTURE, URINE, ROUTINE 07/09/2011 BONE DENSITY DEXA 04/22/2021 Next Appt Details Provider Name:Alverto nicholson, 03/30/2025 10:45:00 AM, [address] [place] [address], [address], [phone], Provider Name:Alverto aquinor, 09/24/2025 07:30:00 AM, [address] [place] [address], [address], [phone], Provider Name:Alverto nicholson, 10/01/2025 10:30:00 AM, [address] [place] [address], [place] [address], [place], [place], [phone], Insurance Providers Payer Name Payer Address Payer Phone Subscriber Number Group Number Insured Name Patient Relationship to Insured Coverage Start Date Coverage End Date [employer] [address] [place] [address] [id number] RussCarlitoe Self - patient is the insured [employer] OF [facility] [address] [place] [phone] [id number] JefekofiKiara Self - patient is the insured Medical (General) History Medical History History ICD Code 08/2013 - has appt in Mar for pap; will make appt for colonoscopy; 04/09/17 - 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
== END 2025-01-03 09:27 | disposition home or self-care (01) ==
LOC: HO.HCS 09:01
PROVIDERS: PCP Internal Medicine; Visit Provider Internal Medicine
DX: I48.92 Unspecified atrial flutter (principal); I10 Essential (primary) hypertension; R93.1 Abnormal findings on diagnostic imaging of heart and coronary circulation; G47.33 Obstructive sleep apnea (adult) (pediatric)
CPT/HCPCS: 99214; G2211

== ENCOUNTER → 2025-01-03 09:01 | Outpatient (BNVA) | payer MEDICARE, SELFPAY | PROVIDERS: PCP Internal Medicine; Visit Provider Internal Medicine | DX: I10 Essential (primary) hypertension (principal); R93.1 Abnormal findings on diagnostic imaging of heart and coronary circulation; I48.92 Unspecified atrial flutter; G47.33 Obstructive sleep apnea (adult) (pediatric); Z79.01 Long term (current) use of anticoagulants; Z79.899 Other long term (current) drug therapy | CPT/HCPCS: 99212 ==

== ENCOUNTER 2025-02-07 07:20 | Outpatient (REF) | payer MEDICARE, SELFPAY ==
--- OUTSIDE RECORDS SUMMARY | 2023-09-21 09:30 | XMS_ITS ---
Author Organization Alverto Baker MD Address [address] [place], [place] [id number] Care Team Providers Care Coater Associate Name Role Phone Alverto Baker Primary Care Provider Allergies Allergen (clinical drug ingredient) Drug/Non Drug Allergy documented on EMR Reaction Allergy Type Onset Date Status penicillin G Penicillin G Sodium hives Drug Allergy Active REASON FOR VISIT review labs, NO Covid symptoms Medications Medication SIG (Take, Route, Frequency, Duration) Notes Start Date End Date Status Eliquis 5 MG TAKE ONE TABLET BY M OUTH TWICE A DAY Active Metoprolol Succinate ER 50 MG TAKE ONE TABLET BY MOUTH EVERY DAY Active dilTIAZem HCl ER Coated Beads 240 MG TAKE 1 CAPSULE BY MOUTH EVERY DAY ON AN EMPTY STOMACH Active Valsartan-hydroCHLOROthiaz treva 320-12.5 MG 1 tablet Orally Once a day Active Social History Tobacco Use: Social History Observation Description Date Details (start date - stop date) Never Smoker NA - NA Tobacco Use/Smoking Question Answer Notes Patient is a nonsmoker Additional Findings: Tobacco Non-User Cu rrent non-smoker, currently using no form of tobacco Alcohol Screen Question Answer Notes Did you have a drink containing alcohol in the p ast year? No Points 0 Interpretation Negative Vital Signs Blood pressure systolic 156 mm Hg 04/30/20 24 Blood pressure diastolic 62 mm Hg 024 Height 65 in 09/21/2023 Weight 180 lbs 09/21/2023 BMI 29.95 kg/m2 09/21/2023 weight is down 4 pounds ginettedewey finnegan 05-06-23 Encounters Encounter Location Date Provider Diagnosis Alverto Baker MD [address] [place], [place] [phone] 09/21/2023 Alverto Baker Vitamin D deficiency E55.9 ; Essential hypertension I10 ; Pure hypercholesterolemia E78.00 ; Prediabetes R73.09 ; Atrial fibrillation with RVR I48.91 and Depression screening Z13.31 Assessments Encounter Date Diagnosis (ICD Code) Assessment Notes Treatment Notes Treatment Clinical Notes Section Notes 09/21/2023 Vitamin D deficiency (ICD-10 - E55.9) levels got too high so will stop 09/21/2023 Essential hypertensi on (ICD-10 - I10) doing well on meds, will continue current regiment 09/21/2023 Pure hypercholesterolemia (ICD-10 - E78.00) is fairly well controlled, will continue to monitor and will continue curent regiment 09/21/2023 Prediabetes (ICD-10 - R73.09) still with good a1c, no need for for medication at this time 09/21/2023 Atrial fibrillation with RVR (ICD-10 - I48.91) stable, will continue current regiment 09/21/2023 Depression screening (ICD-10 - Z13.31) negative screen Plan Of Treatment Medication Medication Name Sig Start Date Stop Date Notes Eliquis 5 MG TAKE ONE TABLET BY M OUTH TWICE A DAY Metoprolol Succinate ER 50 MG TAKE ONE T ABLET BY MOUTH EVERY DAY dilTIAZem HCl ER Coated Bead s 240 MG TAKE 1 CAPSULE BY MOUTH EVERY DAY ON AN EMPTY STOMACH Valsartan-hydroCHLOROthiazid e 320-12.5 MG 1 tablet Orally Once a day Treatment Notes Assessment Notes Vitamin D deficiency levels got too high so will stop Essential hypertension doing well on med s, will continue current regiment Pure hypercholesterolemia is fairly well controlled, will continue to monitor and will continue curent regiment Prediabetes still with good a1c, no need for for medication at this time Atrial fibrillation with RVR stable, jakob l continue current regiment Depression screening negative screen Next Appt Details Follow Up: 6 Months, Reason: bp Provider Name:Alverto Ball ier, 03/30/2025 10:45:00 AM, [address], [address], [place], [phone], Provider Name:Alverto Ball ier, 09/24/2025 07:30:00 AM, [address] [facility], [address], [place], [phone], Provider Name:Alverto Ball ier, 10/01/2025 10:30:00 AM, [address], [address], [place], [phone], Progress Notes * Kiara GARCIA ADOB: (73 yo F)Acc No.[id number]:09/21/2023 Progress Notes Patient: Kiara Rivas Provider: Patricia Baker MD :1950 A ge:73 Y S ex:Female Date:09/21/2023 Address:[address] [place] [address] , [place], [id number] Subjective: * Chief Complaints: * R eview labsNO Covid symptoms * HPI: D epression Screening: PHQ-9 L ittle interest or pleasure in doing things N ot at all, F eeling down, depressed, or hopeless N ot at all, T rouble falling or staying asleep, or sleeping too much N ot at all, F eeling tired or having little energy N ot at all, P oor appetite or overeating N ot at all, F eeling bad about yourself or that you are a failure, or have let yourself or your family down N ot at all, T rouble concentrating on things, such as reading the newspaper or watching television N ot at all, M oving or speaking so slowly that other people could have noticed; or the opposite, being so fidgety or restless that you have been moving around a lot more than usual N ot at all, T houghts that you would be better off or of hurting yourself in some way N ot at all, T otal Score 0 . I nterpretation and Intervention D epression Screening Findings N egative, F ollow-Up for Depression : review of PHQ-9 found negative result, no follow-up needed. C ommunication Needs: Communication Needs D oes the patient have a hearing impairment N o, D oes the patient have a vision impairment? Y es, I f yes, what is the vision impairment? G lasses, D oes the patient have a cognition impairment? N o. S HERMAN Questions: SDOH Questions I n the past year have you been worried about losing housing? N o, I n the past year have you or any family members you live with been unable to get any of the following when it was really needed? Check all that apply: N one. F all Risk: History H ave you had any falls with injury in the past year? N o, H ave you had two or more falls in the past year? N o. S ymptom(s): patient is a 73 yo female here for review of recent labs and follow up of chronic issues, including follow up of bp. * ROS: G eneral/Constitutional: Patient denies c hills, fatigue, fever, headache. ? E NT: Patient denies d ecreased sense of smell, any loss of taste, sore throat. R espiratory: Patient denies s hortness of breath at rest, shortness of breath with exertion. C ardiovascular: Patient denies c hest pain with exertion, chest pain at rest. G astrointestinal: Patient denies c hange in bowel habits, abdominal pain.? G enitourinary: Patient denies d ifficulty urinating, frequent urination.? M usculoskeletal: Patient denies m uscle aches. P eripheral Vascular: Patient denies r ed and blue toes. * Medical History: * Surgical History: * Hospitalization/Major Diagno stic Procedure: * Family History: F ather: 72 yrs. M other: 90 yrs, stroke. 1 son(s) , 2 daughter(s) - healthy. . Father- MS MOther- Old age, Denies mental health/substance abuse family history, No pertinent family medical history, No pertinent family medical history, No pertinent family medical history. * Social History: T obacco Use: T obacco Use/Smoking P atient is a n onsmoker, [place] dditional Findings: Tobacco Non-User C urrent non-smoker, currently using no form of tobacco. D rugs/Alcohol: A lcohol Screen D id you have a drink containing alcohol in the past year? N o, P oints 0 , I nterpretation N egative. M iscellaneous: C affeine: yes, frequency:, 2-3 cups per day. Children: yes. no Community involvements. Exercise: yes, walking daily and a bike daily gets 10,000 steps a day. Housing: owning. Living with: spouse. Marital status: . Occupation: retired. Pets: none. Travel outside of the [place]: yes, [place]. * Medications: T akingValsartan-hydroCHLOROthiazide 320-12.5 MG Tablet 1 tablet Orally Once a daydilTIAZem HCl ER Coated Beads 240 MG Capsule Extended Release 24 Hour TAKE 1 CAPSULE BY MOUTH EVERY DAY ON AN EMPTY STOMACH Eliquis 5 MG Tablet TAKE ONE TABLET BY MOUTH TWICE A DAY Metoprolol Succinate ER 50 MG Tablet Extended Release 24 Hour TAKE ONE TABLET BY MOUTH EVERY DAY Taking Valsartan-hydroCHLOROthiazide 320-12.5 MG Tablet 1 tablet Orally Once a dayTaking dilTIAZem HCl ER Coated Beads 240 MG Capsule Extended Release 24 Hour TAKE 1 CAPSULE BY MOUTH EVERY DAY ON AN EMPTY STOMACH Taking Eliquis 5 MG Tablet TAKE ONE TABLET BY MOUTH TWICE A DAY Taking Metoprolol Succinate ER 50 MG Tablet Extended Release 24 Hour TAKE ONE TABLET BY MOUTH EVERY DAY DiscontinuedVitamin D (Cholecalciferol) 1000 UNIT Tablet 2 tablets Orally Once a dayMedication List reviewed and reconciled with the patientDiscontinued Vitamin D (Cholecalciferol) 1000 UNIT Tablet 2 tablets Orally Once a dayMedication List reviewed and reconciled with the patient * Allergies: P enicillin G Sodium: hives - Allergyyes[Allergies Verified] Objective: * Vitals: H t: 65, Wt:180, BMI:29.95, BP:156/62, Repeat BP:128/72 weight is down 4 pounds since 05-06-23. * P ast Orders: L ab:Urine Culture (Order Date - 08/31/2023) (Collection Date - 08/31/2023) Value Reference Range Urine Culture Susceptibility not routinely performed on this isolate. - O:STRAGA Strep agalactiae (Grp B) - L ab:Vitamin D 25-OH Total (Order Date - 08/31/2023) (Collection Date - 08/31/2023) Value Reference Range Vitamin D 25-OH Total 89.1 >30 - ng/mL L ab:Microalbumin, Random (Order Date - 08/31/2023) (Collection Date - 08/31/2023) Value Reference Range Creatinine Urine 82.32 - mg/dL Microalbumin Urine < 5.0 - mg/L Microalbum Creatinine Ratio Ur TNP <30 - ug/mg cr L ab:Hemoglobin A1c (Order Date - 08/31/2023) (Collection Date - 08/31/2023) Value Reference Range Hemoglobin A1c % 5.8 <6.0 - % Estimated Average Glucose 120 - mg/dL L ab:Complete Blood Count Auto Diff (Order Date - 08/31/2023) (Collection Date - 08/31/2023) Value Reference Range White Blood Count 5.9 4.8-10.8 - X10*3/uL Red Blood Count 5.32 4.20-5.50 - X10*6/uL Hemoglobin 15.4 12.0-16.0 - g/dl Hematocrit 46.3 37.0-47.0 - % Mean Corpuscular Volume 87.0 80.0-98.0 - fL Mean Corpuscular Hemoglobin 28.9 27.0-33.0 - pg Mean Corpuscular HGB Conc 33.3 31.0-35.0 - g/ dl Red Cell Distribution Width 15.6 11.0-16.0 - % Platelet Count 309 160-400 - X10*3/uL Mean Platelet Volume 9.9 9.4-12.3 - fL Neutrophils Percent Auto 52.4 45-73 - % Imm Gran Pct Auto 0.2 0.0-0.4 - % Lymphocytes Percent Auto 37.3 20-40 - % Monocytes Percent Auto 7.9 2-11 - % Eosinophils Percent Auto 1.7 0-4 - % Basophils Percent Auto 0.5 0-2 - % NRBC Pct Auto 0.0 0.0-0.2 - /100WBC Neutrophils Absolute Auto 3.1 2.0-8.3 - x10* 3/uL Imm Gran Abs Auto 0.01 0.00-0.03 - X10*3/uL Lymphocytes Absolute Auto 2.2 1.2-4.9 - X10* 3/uL Monocytes Absolute Auto 0.5 0.1-1.2 - X10*3/ uL Eosinophils Absolute Auto 0.1 0.0-0.4 - X10* 3/uL Basophils Absolute Auto 0.0 0.0-0.2 - X10*3/ uL NRBC Abs Auto 0.000 0.0-0.012 - X10*3/uL L ab:UA ClnCatch+Micro w/rflx Cult (Order Date - 08/31/2023) (Collection Date - 08/31/2023) Value Reference Range Color Urine Yellow - Appearance Urine Clear - PH 6.0 5.0-9.0 - Glucose Urine UA Negative Negative - mg/dL Urine Blood Negative Negative - Specific [place] - Urine 1.015 1.005-1.025 - Urine Protein Negative Neg-Trace - mg/dL Urine Ketones Negative Negative - mg/dL Nitrite Urine Negative Negative - Leukocyte Esterase Urine Moderate (2+) A Negative - RBC Urine 0-2 0-2 - /HPF WBC Urine 11-20 A 0-5 - /HPF Squamous Epithelial Cell Urine 0-2 0-2 - /HPF Bacteria Urine None Seen None Seen - Hyaline Casts Urine 0-2 0-2 - /LPF L ab:Comprehensive [place]. Panel Fast (Order Date - 08/31/2023) (Collection Date - 08/31/2023) Value Reference Range Sodium 143 135-145 - mmol/L Bilirubin Total 0.6 0.0-1.0 - mg/dL Aspartate Amino Transferase 18 5-31 - U/L Alanine Aminotransferase 17 0-31 - U/L Total Protein 6.4 L 6.5-8.0 - g/dL Albumin Level 3.7 3.5-5.0 - g/dL Alkaline Phosphatase 81 39-117 - U/L Potassium 3.6 3.3-5.1 - mmol/L Chloride 107 96-108 - mmol/L Carbon Dioxide 28 22-29 - mmol/L Anion Gap 12 12-20 - Blood Urea Nitrogen 14 9-16 - mg/dL Creatinine 0.74 0.5-1.4 - mg/dL Estimated Glomerular Filt Rate > 60 - Glucose Fasting 104 H 60-99 - mg/dL Calcium 9.3 8.4-10.2 - mg/dL L ab:Lipid Panel (Order Date - 08/31/2023) (Collection Date - 08/31/2023) Value Reference Range Triglycerides 79 <150 - mg/dL Cholesterol 228 H <200 - mg/dL LDL Cholesterol Calculated 149 H <100 - mg/dL HDL Cholesterol 64 >40 - mg/dL * Examination: G eneral Examination: GENERAL APPEARANCE: alert, well hydrated, in no distress . HEAD: normocephalic. EYES: BOTH EYES, normal. EARS: BOTH EARS with cerumen. THROAT: uvula midline, tonsils normal, pharynx normal, no exudate. NECK/THYROID: no cervical lymphadenopathy, no carotid bruit. SKIN: good turgor. HEART: no murmurs, rubs, gallops, regular rate and rhythm. LUNGS: no wheezes, rales, rhonchi, good air movement, clear to auscultation bilaterally. BREASTS: declined. ABDOMEN: soft, nontender, nondistended, no rebound tenderness, no organomegaly , no masses palpable. RECTAL EXAM: declined. Assessment: * Assessment: 1. E ssential hypertension - I10 (Primary) 2 . V itamin D deficiency - E55.9 3 .?Pure hypercholesterolemia - E78.00 4 . P rediabetes - R73.09 5 . A trial fibrillation with RVR - I48.91 6 . D epression screening - Z13.31 Plan: * Treatment: 2. V itamin D deficiency Notes: levels got too high so will stop. 3. P ure hypercholesterolemia Notes: is fairly well controlled, will continue to monitor and will continue curent regiment. ? 4. P rediabetes Notes: still with good a1c, no need for for medication at this time. 5. A trial fibrillation with RVR Continue Eliquis Tablet, 5 MG, TAKE ONE TABLET BY MOUTH TWICE A DAY. Notes: stable, will continue current regiment. 6. D epression screening Notes: negative screen. * Procedure Codes: * Follow Up: 6 Months (Reason: bp) * * Sign off status: Completed true * Provider: Patricia Baker MD Date: 0 09/21/2023 Generated for Vianney vaz/Danie/Maidsonitting on: 0 02/07/2025 07:24 AM EDT History and Physical Notes * HPI (History of Present Illness) Category Sub-Category Detail Notes Category Not es Symptom(s) patient is a 73 yo female here for review of recent labs and follow up of chronic issues, including follow up of bp. Depression Screening PHQ-9 Little inte rest or pleasure in doing things: Not at all Feeling down, depressed, or hopeless: No t at all Trouble falling or staying asleep, or sl eeping too much: Not at all Feeling tired or having little energy: N ot at all Poor appetite or overeating: Not at all Feeling bad about yourself o r that you are a failure, or have let yourself or your family down: Not at all Trouble concentrating on thi ngs, such as reading the newspaper or watching television: Not at all Moving or speaking so slowly that other people could have noticed; or the opposite, being so fidgety or restless that you have been moving around a lot more than usual: Not at all Thoughts that you would be b neha off or of hurting yourself in some way: Not at all Total Score: 0 Interpretation and Intervention Depression Kallie guerrier Findings: Negative Follow-Up for Depression: : review of PH Q-9 found negative result, no follow-up needed SDOH Questions SDOH Questions In the past year have you been worried about losing housing?: No In the past year have you or any family members you live with been unable to get any of the following when it was really needed? Check all that apply:: None Fall Risk History Have you had any falls with injury i n the past year?: No Have you had two or more falls in the year?: No Communication Needs Communication Needs Does the patient have a hearing impairment: No Does the patient have a vision impairmen t?: Yes If yes, what is the vision impairment?: Glasses Does the patient have a cognition impair ment?: No Examination Category Sub-Category Detail Notes Category Not es General Examination GENERAL APPEARANCE: alert, w ell hydrated, in no distress HEAD: normocephalic EYES: BOTH EYES, normal EARS: BOTH EARS with cerum en THROAT: uvula midline, tonsi ls normal, pharynx normal, no exudate NECK/THYROID: no cervical lymphade nopathy, no carotid bruit HEART: no murmurs, rubs, ga llops, regular rate and rhythm LUNGS: no wheezes, rales, r honchi, good air movement, clear to auscultation bilaterally ABDOMEN: soft, nontender, non distended, no rebound tenderness, no organomegaly , no masses palpable SKIN: good turgor BREASTS: declined RECTAL EXAM: declined
--- OUTSIDE RECORDS SUMMARY | 2024-03-21 07:00 | XMS_ITS ---
Author Organization Alverto Baker MD Address [address] [place], [place] [id number] Care Team Providers Care Cycle Consultant Name Role Phone Alverto Baker Primary Care Provider [phone] Allergies Allergen (clinical drug ingredient) Drug/Non Drug Allergy documented on EMR Reaction Allergy Type Onset Date Status penicillin G Penicillin G Sodium hives Drug Allergy Active Results Component Value Reference Range Notes Hemoglobin A1c Reviewed date:03/21/2024 11:05:36 AM Interpretation: Performing Lab: Notes/Report: Hemoglobin A1c 5.8 Glucose, finger stick Reviewed date:03/21/2024 10:58:40 AM Interpretation: Performing Lab: Notes/Report: Value 112 REASON FOR VISIT 6 month BP Medications Medication SIG (Take, Route, Frequency, Duration) Notes Start Date End Date Status Valsartan-hydroCHLOROthiaz treva 320-12.5 MG 1 tablet Orally Once a day Active Metoprolol Succinate ER 50 MG TAKE ONE TABLET BY MOUTH EVERY DAY Active Eliquis 5 MG TAKE ONE TABLET BY M OUTH TWICE A DAY Active dilTIAZem HCl ER Coated Beads 240 MG TAKE ONE CAPSULE BY MOUTH EVERY DAY ON AN EMPTY STOMACH for 60 Active Immunizations Vaccine Route Administration Date Status Comme nts Influenza High Dose IM Intramuscular 03/21/2024 Administer ed Vital Signs Blood pressure systolic 134 mm Hg 03/21/20 24 Blood pressure diastolic 62 mm Hg 024 Height 65 in 03/21/2024 Weight 184 lbs 03/21/2024 BMI 30.62 kg/m2 03/21/2024 weight is up 4 pounds since 09-21-23 Encounters Encounter Location Date Provider Diagnosis Alevrto Baker MD [address] [place] [id number] 03/21/2024 Alverto Baker Prediabetes R73.09 ; Essential hypertension I10 and Encounter for immunization Z23 Assessments Encounter Date Diagnosis (ICD Code) Assessment Notes Treatment Notes Treatment Clinical Notes Section Notes 03/21/2024 Prediabetes (ICD-10 - R73.09) doing great. encouraged diet. stay away from the halloween candy, no need for medication at this time 03/21/2024 Essential hypertension (ICD-10 - I10) stable , is at goal, will continue current regiment 03/21/2024 Encounter for immunization (ICD-10 - Z23) flyu vaccine adminstered Plan Of Treatment Treatment Notes Assessment Notes Prediabetes doing great. encoura ged diet. stay away from the halloween candy, no need for medication at this time Essential hypertension stable , is at go al, will continue current regiment Encounter for immunization flyu vaccine adminstered Next Appt Details Provider Name:Alverto nicholson, 03/30/2025 10:45:00 AM, [address] [place] [address], [address], [phone], Provider Name:Alverto nicholson, 09/24/2025 07:30:00 AM, [address] [place] [address], [address], [phone], Provider Name:Alverto nicholson, 10/01/2025 10:30:00 AM, [address] [place] [address], [address], [phone], Progress Notes * Kiara GARCIA ADOB: 2 (73 yo F)Acc No.[id number]:03/21/2024 Progress Notes Patient: O Kiara live Provider: Patricia Baker MD :1950 A ge:73 Y S ex:Female Date:03/21/2024 Address: [address], [place], [place] Subjective: * Chief Complaints: * 6 month BP * HPI: S ymptom(s): patient is a 73 yo female here for 6 mnth follow up of her bp/ has been doing well. * ROS: G eneral/Constitutional: Denies C hills. D enies F atigue. D enies F ever. D enies H eadache. E NT: Patient denies d ecreased sense of smell , any loss of taste , sore throat. D enies S ore throat. R espiratory: Denies C ough. D enies S hortness of breath at rest. D enies S hortness of breath with exertion. G astrointestinal: Denies D iarrhea. D enies N ausea. M usculoskeletal: Patient denies m uscle aches. P eripheral Vascular: Patient denies r ed and blue toes. * Medical History: * Surgical History: * Hospitalization/Major Diagno stic Procedure: * Medications: T akingValsartan-hydroCHLOROthiazide 320-12.5 MG Tablet 1 tablet Orally Once a dayMetoprolol Succinate ER 50 MG Tablet Extended Release 24 Hour TAKE ONE TABLET BY MOUTH EVERY DAY Eliquis 5 MG Tablet TAKE ONE TABLET BY MOUTH TWICE A DAY dilTIAZem HCl ER Coated Beads 240 MG Capsule Extended Release 24 Hour TAKE ONE CAPSULE BY MOUTH EVERY DAY ON AN EMPTY STOMACH Medication List reviewed and reconciled with the patientTaking Valsartan-hydroCHLOROthiazide 320-12.5 MG Tablet 1 tablet Orally Once a dayTaking Metoprolol Succinate ER 50 MG Tablet Extended Release 24 Hour TAKE ONE TABLET BY MOUTH EVERY DAY Taking Eliquis 5 MG Tablet TAKE ONE TABLET BY MOUTH TWICE A DAY Taking dilTIAZem HCl ER Coated Beads 240 MG Capsule Extended Release 24 Hour TAKE ONE CAPSULE BY MOUTH EVERY DAY ON AN EMPTY STOMACH Medication List reviewed and reconciled with the patient * Allergies: P enicillin G Sodium: hives - Allergyyes[Allergies Verified] Objective: * Vitals: H t: 65, Wt:184, BMI:30.62, BP:134/62 weight is up 4 pounds since 09-21-23. * Examination: G eneral Examination: GENERAL APPEARANCE: a lert, well hydrated, in no distress.? SKIN: g ood turgor. HEART: n o murmurs, rubs, gallops , regular rate and rhythm. LUNGS: n o wheezes, rales, rhonchi , good air movement , clear to auscultation bilaterally. Assessment: * Assessment: 1. E ssential hypertension - I10 (Primary) 2 . P rediabetes - R73.09 3 . E ncounter for immunization - Z23 Plan: * Treatment: 2. P rediabetes L AB: Hemoglobin A1c Value Reference Range H emoglobin A1c 5.8 * Zena Mccall 4 11:05:35 AM EDT > ?LAB: Glucose, finger stick* Value Reference Range V alue 112 * Zena Mccall 4 10:58:39 AM EDT > Notes: doing great. encouraged diet. stay away from the [facility], no need for medication at this time??3.?Encounter for immunization? Notes: flyu vaccine adminstered?? * Immunizations: Influenza High Dose : 0.5 mL (Dose No:1) (Route: Intramuscular) given by Zena Mccall on Left Deltoid * Procedure Codes: 8 2947 ASSAY, GLUCOSE, BLOOD QUANT, Modifiers: QW 56380 GLYCATED HEMOGLOBIN TEST, Modifiers: QW 77470 FLU VACC PRSV FREE INC [id number] ADMN FLU VAC NO FEE SCHED SAME DAY * Preventive Medicine: Immunizations: I nfluenza H ave you had a flu shot since the most recent January 22? Y es. * * Sign off status: Completed true * Provider: Patricia Baker MD Date: Generated for Printi татьяна/Danie/eTransmitting on: 0 02/07/2025 07:24 AM EDT History and Physical Notes * HPI (History of Present Illness) Category Sub-Category Detail Notes Category Not es Symptom(s) patient is a 73 yo female here for 6 mnth follow up of her bp/ has been doing well. Examination Category Sub-Category Detail Notes Category Not es General Examination GENERAL APPEARANCE: alert, w ell hydrated, in no distress HEART: no murmurs, rubs, ga llops , regular rate and rhythm LUNGS: no wheezes, rales, r honchi , good air movement , clear to auscultation bilaterally SKIN: good turgor
--- OUTSIDE RECORDS SUMMARY | 2024-08-21 09:42 | XMS_ITS ---
Author Organization Alverto Baker MD Address [address] [place] [id number] Care Team Providers Care Metal Bonding Helper Name Role Phone SamuelJaleesan Primary Care Provider REASON FOR VISIT tooth extraction Encounters Encounter Location Date Provider Diagnosis Alverto Baker MD [address] [facility] [address] [place] [phone] 08/21/2024 Alverto Baker Plan Of Treatment Next Appt Details Provider Name:Alverto nicholson, 03/30/2025 10:45:00 AM, [address] [place] [address], [address] [place] [address], [phone], Provider Name:Alverto nicholson, 09/24/2025 07:30:00 AM, [address] [place] [address], [address], [phone], Provider Name:Alverto nicholson, 10/01/2025 10:30:00 AM, [address] [place] [address], [address], [phone], Progress Notes * Kiara GARCIA ADOB: 2 (74 yo F)Acc No.[id number]:08/21/2024 Patient: Kiara ARRIAGA :1950 A ge:74 Y S ex:Female Address: [address], [place] [address] * true * Date: Generated for Vianney vaz/Danie/Madisonitting on: 0 02/07/2025 07:24 AM EDT
--- OUTSIDE RECORDS SUMMARY | 2024-09-21 03:00 | XMS_ITS ---
Author Organization Alverto Baker MD Address [address] [place], [place] [phone] Care Team Providers Care Dredge Boat Engineer Name Role Phone Alverto Baker Primary Care Provider Results Component Value Reference Range Notes Complete Blood Count Auto Di ff Reviewed date:09/24/2024 03:49:42 PM Interpretation: Performing Lab:[facility], [address] [place] [phone] Notes/Report: White Blood Count 6.7 4.8-10.8 X10*3/uL Red Blood Count 5.04 4.20-5.50 X10*6/uL Hemoglobin 14.8 12.0-16.0 g/dl Hematocrit 45.3 37.0-47.0 % Mean Corpuscular Volume 89.9 80.0-98.0 fL Mean Corpuscular Hemoglobin 29.4 27.0-33.0 pg Mean Corpuscular HGB Conc 32.7 31.0-35.0 g/dl Red Cell Distribution Width 14.1 11.0-16.0 % Platelet Count 329 160-400 X10*3/uL Mean Platelet Volume 9.4 9.4-12.3 fL Neutrophils Percent Auto 54.4 45-73 % Imm Gran Pct Auto 0.3 0.0-0.4 % Lymphocytes Percent Auto 34.1 20-40 % Monocytes Percent Auto 8.5 2-11 % Eosinophils Percent Auto 2.1 0-4 % Basophils Percent Auto 0.6 0-2 % NRBC Pct Auto 0.0 0.0-0.2 /100WBC Neutrophils Absolute Auto 3.7 2.0-8.3 x10*3/u L Imm Gran Abs Auto 0.02 0.00-0.03 X10*3/uL Lymphocytes Absolute Auto 2.3 1.2-4.9 X10*3/u L Monocytes Absolute Auto 0.6 0.1-1.2 X10*3/uL Eosinophils Absolute Auto 0.1 0.0-0.4 X10*3/u L Basophils Absolute Auto 0.0 0.0-0.2 X10*3/uL NRBC Abs Auto 0.000 0.0-0.012 X10*3/uL Comprehensive [place]. Panel Fa st Reviewed date:09/21/2024 05:01:20 PM Interpretation: Performing Lab:[facility], [address] [place] [phone] Notes/Report: Sodium 140 135-145 mmol/L Potassium 4.3 3.3-5.1 mmol/L Chloride 106 96-108 mmol/L Carbon Dioxide 27 22-29 mmol/L Anion Gap 11 12-20 Blood Urea Nitrogen 21 9-16 mg/dL Creatinine 1.01 0.5-1.4 mg/dL Estimated Glomerular Filt Rate 54 Chronic Kidney Disease: Estimated GFR < 60 mL/min/1.73m2 Severe Kidney Disease: Estimated GFR < 15 mL/min/1.73m2 Glucose Fasting 109 60-99 mg/dL A fasting glucose from 100-125 mg/dl is considered impaired (pre-diabetes). Calcium 9.8 8.4-10.2 mg/dL Bilirubin Total 0.5 0.0-1.0 mg/dL Aspartate Amino Transferase 23 5-31 U/L Alanine Aminotransferase 14 0-31 U/L Total Protein 6.7 6.5-8.0 g/dL Albumin Level 4.0 3.5-5.0 g/dL Alkaline Phosphatase 75 39-117 U/L Lipid Panel Reviewed date:09/21/2024 05:02:26 PM Interpretation: Performing Lab:[facility], [address] [place] [phone] Notes/Report: Triglycerides 131 <150 mg/dL Desirable Triglyceride: less than 150 mg/dL Borderline High Triglyceride 150-199 mg/dL High Triglyceride: 200-499 mg/dL Very High Triglyceride: greater than or equal to 5OO mg/dL Cholesterol 212 <200 mg/dL Desirable Cholesterol: less than 200 mg/dL Borderline High Cholesterol: 200-239 mg/dL High Cholesterol: greater than 239 mg/dL LDL Cholesterol Calculated 132 <100 mg/dL Desirable LDL: less than 100 mg/dL Near Optimal/Above Optimal LDL: 110-129 mg/dL Borderline High LDL: 130-159 mg/dL High LDL: 160-189 mg/dL Very High LDL: greater than or equal to 190 mg/dL HDL Cholesterol 54 >40 mg/dL Desirable HDL: greater than 40 mg/dL Note: This HDL assay may give artificially low results in patients with liver disease. Vitamin D 25-OH Total Reviewed date:09/21/2024 05:02:36 PM Interpretation: Performing Lab:[facility], [address] [place] [phone] Notes/Report: Vitamin D 25-OH Total 54.6 >30 ng/mL Health Based Reference Values* < 20 ng/mL Deficient 20-30 ng/mL Insufficient > 30 ng/mL Sufficient *John CISNEROS. N Engl J Med. 2007;357:266-280 There is no well-established upper level of normal vitamin D levels. Some laboratories use 50 ng/mL as an upper limit of normal. However, toxicity is patient-dependent and may occur at any level. Careful correlation with the patient's presentation is necessary and, if there is concern for vitamin D toxicity, treatment should be considered irrespective of the serum level. Care must be taken in interpreting Vitamin [...] method such as LC-MS/MS. Microalbumin, Random Reviewed date:09/21/2024 05:02:02 PM Interpretation: Performing Lab:[facility], [address] [place] [phone] Notes/Report: Creatinine Urine 94.12 Microalbumin Urine 30.0 Microalbum/Creatinine Ratio Ur 31.8 <30 ug/mg cr Albumin/Creatinine Ratio Reference Ranges: Normal: < 30 ug/mg creatinine Microalbuminuria: 30 - 300 ug/mg creatinine Clinical Albuminuria: > 300 ug/mg creatinine Hemoglobin A1c Reviewed date:09/21/2024 05:02:12 PM Interpretation: Performing Lab:[facility], [address] [place] [phone] Notes/Report: Hemoglobin A1c % 6.0 <6.0 % Hemoglobin A1C Reference Range Adults: 4.8 - 6.0 % Non diabetic: < 6.0 % Goal: < 7.0 % Additional Action Suggested: > 8.0 % Note: Hemoglobin A1c results are invalid for patients with abnormal amounts of HbF. Blood transfusions may impact the HbA1c concentration in the patient sample. Estimated Average Glucose 126 eAG = Estimated average glucose which is %A1C expressed as average glucose, using the formula of the [id number]-[id number] Average Glucose study (ADAG), Diabetes Care, Vol.31,#8, Dec. 2007 UA ClnCatch+Micro w/rflx Cul t Reviewed date:09/22/2024 05:11:58 PM Interpretation: Performing Lab:[facility], [address] [place] [phone] Notes/Report: Urine, Clean Catch Color Urine Yellow Appearance Urine Clear PH 6.0 5.0-9.0 Glucose Urine UA Negative Negative mg/dL Urine Blood Negative Negative Specific Strum - Urine 1.015 1.005-1.025 Urine Protein Negative Neg-Trace mg/dL Urine Ketones Negative Negative mg/dL Nitrite Urine Negative Negative Leukocyte Esterase Urine Moderate (2+) Negative RBC Urine 0-2 0-2 /HPF WBC Urine 11-20 0-5 /HPF Squamous Epithelial Cell Urine 0-2 0-2 /HPF Bacteria Urine None Seen None Seen Hyaline Casts Urine 0-2 0-2 /LPF REASON FOR VISIT yearly fasting labs Encounters Encounter Location Date Provider Diagnosis Alverto Baker MD [address] [place] [address] Drive [address] [place], [place] [phone] 09/21/2024 Alverto Baker Essential hypertensi on I10 ; Pure hypercholesterolemia E78.00 ; Prediabetes R73.09 ; Vitamin D deficiency E55.9 and Thrombocytopenia D69.6 Assessments Encounter Date Diagnosis (ICD Code) Assessment Notes Treatment Notes Treatment Clinical Notes Section Notes 09/21/2024 Essential hypertensi on (ICD-10 - I10) 09/21/2024 Pure hypercholesterolemia (ICD-10 - E78.00) 09/21/2024 Prediabetes (ICD-10 - R73.09) 09/21/2024 Vitamin D deficiency (ICD-10 - E55.9) 09/21/2024 Thrombocytopenia (IC D-10 - D69.6) Plan Of Treatment Next Appt Details Provider Name:Alverto nicholson, 03/30/2025 10:45:00 AM, [address] [place] [address], [address], [phone], Provider Name:Alverto nicholson, 09/24/2025 07:30:00 AM, [address] [place] [address], Suite [facility], [place], [place], [phone], Provider Name:Alverto nicholson, 10/01/2025 10:30:00 AM, [address] [place] [address], [place] [address], [place], [place], [phone], Progress Notes * LISAKiara FERGUSON ADOB: 2 (74 yo F)Acc No.[id number]:09/21/2024 Progress Note Patient: Kiara ARRIAGA Provider: Patricia Baker MD :1950 A ge:74 Y S ex:Female Date:09/21/2024 Address: [address], [id number] Subjective: * Chief Complaints: * 1 . Yearly fasting labs. * Medical History: Objective: * Vitals: Assessment: * Assessment: 1. E ssential hypertension - I10 (Primary) 2 . P ure hypercholesterolemia - E78.00 3 . P rediabetes - R73.09 4 . V itamin D deficiency - E55.9 5 . T hrombocytopenia - D69.6 Plan: * Treatment: 2. P ure hypercholesterolemia L AB: Complete Blood Count Auto Diff (Collection Date & Time - 09/21/2024 07:00 AM) L AB: Comprehensive [place]. Panel Fast (Collection Date & Time - 09/21/2024 07:00 AM) L AB: Lipid Panel (Collection Date & Time - 09/21/2024 07:00 AM) L AB: Vitamin D 25-OH Total (Collection Date & Time - 09/21/2024 07:00 AM) L AB: Microalbumin, Random (Collection Date & Time - 09/21/2024 07:00 AM) L AB: Hemoglobin A1c (Collection Date & Time - 09/21/2024 07:00 AM) L AB: UA ClnCatch+Micro w/rflx Cult (Collection Date & Time - 09/21/2024 07:00 AM) 3. P rediabetes L AB: Complete Blood Count Auto Diff (Collection Date & Time - 09/21/2024 07:00 AM) L AB: Comprehensive [place]. Panel Fast (Collection Date & Time - 09/21/2024 07:00 AM) L AB: Lipid Panel (Collection Date & Time - 09/21/2024 07:00 AM) L AB: Vitamin D 25-OH Total (Collection Date & Time - 09/21/2024 07:00 AM) L AB: Microalbumin, Random (Collection Date & Time - 09/21/2024 07:00 AM) L AB: Hemoglobin A1c (Collection Date & Time - 09/21/2024 07:00 AM) L AB: UA ClnCatch+Micro w/rflx Cult (Collection Date & Time - 09/21/2024 07:00 AM) 4. V itamin D deficiency L AB: Complete Blood Count Auto Diff (Collection Date & Time - 09/21/2024 07:00 AM) L AB: Comprehensive [place]. Panel Fast (Collection Date & Time - 09/21/2024 07:00 AM) L AB: Lipid Panel (Collection Date & Time - 09/21/2024 07:00 AM) L AB: Vitamin D 25-OH Total (Collection Date & Time - 09/21/2024 07:00 AM) L AB: Microalbumin, Random (Collection Date & Time - 09/21/2024 07:00 AM) L AB: Hemoglobin A1c (Collection Date & Time - 09/21/2024 07:00 AM) L AB: UA ClnCatch+Micro w/rflx Cult (Collection Date & Time - 09/21/2024 07:00 AM) 5. T hrombocytopenia L AB: Complete Blood Count Auto Diff (Collection Date & Time - 09/21/2024 07:00 AM) L AB: Comprehensive [place]. Panel Fast (Collection Date & Time - 09/21/2024 07:00 AM) L AB: Lipid Panel (Collection Date & Time - 09/21/2024 07:00 AM) L AB: Vitamin D 25-OH Total (Collection Date & Time - 09/21/2024 07:00 AM) L AB: Microalbumin, Random (Collection Date & Time - 09/21/2024 07:00 AM) L AB: Hemoglobin A1c (Collection Date & Time - 09/21/2024 07:00 AM) L AB: UA ClnCatch+Micro w/rflx Cult (Collection Date & Time - 09/21/2024 07:00 AM) * Procedure Codes: 3 6415 VENIPUNCT, ROUTINE* * * The named appointment provid er may or may not be the originator of this progress note, and it is not deemed complete until electronically signed by the appointment provider. Sign off status: Pending * Provider: Patricia Baker MD Date: 0 09/21/2024 Generated for Vianney vaz/Danie/Madisonitting on: 0 02/07/2025 07:24 AM EDT
--- OUTSIDE RECORDS SUMMARY | 2024-09-28 07:00 | XMS_ITS ---
Author Organization Alverto Baker MD Address [address] [place], [place] [phone] Care Team Providers Care Master Barber Name Role Phone Alverto Baker Primary Care Provider Allergies Allergen (clinical drug ingredient) Drug/Non Drug Allergy documented on EMR Reaction Allergy Type Onset Date Status penicillin G Penicillin G Sodium hives Drug Allergy Active REASON FOR VISIT follow up visit bp Medications Medication SIG (Take, Route, Frequency, Duration) Notes Start Date End Date Status dilTIAZem HCl ER Coated Beads 240 MG TAKE ONE CAPSULE BY MOUTH EVERY DAY ON AN EMPTY STOMACH Active Valsartan-hydroCHLOROthiazid e 320-12.5 MG 1 tablet Orally Once a day Active Eliquis 5 MG TAKE ONE TABLET BY M OUTH TWICE A DAY Active Spironolactone 25 MG 1 tablet Orally Active Metoprolol Succinate ER 50 MG TAKE ONE TABLET BY MOUTH EVERY DAY for 30 Active Social History Tobacco Use: Social History [...] Interpretation Negative Vital Signs Blood pressure systolic 122 mm Hg 09/29/19 25 Blood pressure diastolic 64 mm Hg 025 Height 65 in 09/28/2024 Weight 182 lbs 09/28/2024 BMI 30.28 kg/m2 09/28/2024 weight is down 2 pounds [facility] e 10-29-24 Encounters Encounter Location Date Provider Diagnosis Alverto Baker MD [address] [place] [address] [address] [place], [place] [phone] 09/28/2024 Alverto Baker Atrial fibrillation with RVR I48.91 ; Prediabetes R73.09 ; Essential hypertension I10 ; Pure hypercholesterolemia E78.00 ; Vitamin D deficiency E55.9 and Depression screening Z13.31 Assessments Encounter Date Diagnosis (ICD Code) Assessment Notes Treatment Notes Treatment Clinical Notes Section Notes 09/28/2024 Atrial fibrillation with RVR (ICD-10 - I48.91) not having any problems, will continue current regiment 09/28/2024 Prediabetes (ICD-10 - R73.09) good a1c. continue with diet, no need for medication at this time 09/28/2024 Essential hypertensi on (ICD-10 - I10) well controlled, will continue current regiment 09/28/2024 Pure hypercholesterolemia (ICD-10 - E78.00) stable, will contiue to monitor diet 09/28/2024 Vitamin D deficiency (ICD-10 - E55.9) stable, will continue to monitor 09/28/2024 Depression screening (ICD-10 - Z13.31) negative screen Plan Of Treatment Medication Medication Name Sig Start Date Stop Date Notes dilTIAZem HCl ER Coated Bead s 240 MG TAKE ONE CAPSULE BY MOUTH EVERY DAY ON AN EMPTY STOMACH Valsartan-hydroCHLOROthiazid e 320-12.5 MG 1 tablet Orally Once a day Eliquis 5 MG TAKE ONE TABLET BY M OUTH TWICE A DAY Treatment Notes Assessment Notes Atrial fibrillation with RVR not having any problems, will continue current regiment Prediabetes good a1c. continue w ith diet, no need for medication at this time Essential hypertension well controlled, will continue current regiment Pure hypercholesterolemia stable, will c ontiue to monitor diet Vitamin D deficiency stable, will contin ue to monitor Depression screening negative screen Next Appt Details Follow Up: 6 Months, Reason: Provider Name:Alverto Ball lyn, 03/30/2025 10:45:00 AM, [address], [address], [place], [phone], Provider Name:Alverto Ball lyn, 09/24/2025 07:30:00 AM, [address], [address], [place], [phone], Provider Name:Alverto Ball lyn, 10/01/2025 10:30:00 AM, [address], [address], [place], [phone], Progress Notes * Kiara GARCIA ADOB: (74 yo F)Acc No.[id number]:09/28/2024 Patient: Kiara ARRIAGA Provider: Patricia Baker MD :1950 A ge:74 Y S ex:Female Date:09/28/2024 [facility] [address], [place], [id number] Subjective: * Chief Complaints: * F ollow up visit bp * HPI: D epression Screening: PHQ-9 L [...] at all, T otal Score 0 . C ommunication Needs: Communication Needs D oes the patient have a hearing impairment N o, D oes the patient have a vision impairment? Y es, I f yes, what is the vision impairment? G lasses, D oes the patient have a cognition impairment? N o. F all Risk: History H ave you had any falls with injury in the past year? N o, H ave you had two or more falls in the past year? N o. S HERMAN Questions: SDOH Questions I n the past year have you been worried about losing housing? N o, I n the past year have you or any family members you live with been unable to get any of the following when it was really needed? Check all that apply: N one. S ymptom(s): patient is a 74 yo female here for review of recent labs and follow up of chronic issues. * ROS: G eneral/Constitutional: Change in appetite d enies. C hills d enies. F ever d enies. O phthalmologic: Blurred vision d enies. D ischarge d enies. P ain d enies. E NT: Decreased hearing d enies. S ore throat d enies.?Swollen glands d enies. E ndocrine: Cold intolerance d enies. E xcessive thirst d enies. H eat intolerance d enies. W eight loss d enies. R espiratory: Cough d enies. S hortness of breath at rest d enies. S hortness of breath with exertion d enies. W heezing d enies. C ardiovascular: Chest pain at rest d enies. C hest pain with exertion?denies. I rregular heartbeat d enies. S hortness of breath d enies. ? G astrointestinal: Abdominal pain d enies. C hange in bowel habits d enies. D iarrhea d enies. N ausea d enies. R ectal bleeding d enies. V omiting d enies . G enitourinary: Blood in urine d enies. D ifficulty urinating d enies. F requent urination d enies. U rinary incontinence D enies. M usculoskeletal: Painful joints d enies. W eakness d enies. ? S kin: Dry skin d enies. I tching d enies. D enies?Mole(s), changes in moles, new moles or any lesions of concern. D enies P hotosensitivity. R tessa d enies. N eurologic: Dizziness d enies. F ainting d enies. H eadache?denies. * Medical History: * Surgical History: * [...] Use/Smoking P atient is a n onsmoker, A dditional Findings: Tobacco Non-User C urrent non-smoker, currently using no form of tobacco. D rugs/Alcohol: A lcohol Screen D id you have a drink containing alcohol in the past year? N o, P oints 0 , I nterpretation N egative. M iscellaneous: C affeine: yes, frequency:, 2-3 cups per day. Children: yes. Community involvements: no. Exercise: yes, walking daily and a bike daily gets 10,000 steps a day. Housing: owning. Living with: spouse. Marital status: . Occupation: retired. Pets: none. Travel outside of the [place]: no. * Medications: T akingSpironolactone 25 MG Tablet 1 tablet Orally Valsartan-hydroCHLOROthiazide 320-12.5 MG Tablet 1 tablet Orally Once a day dilTIAZem HCl ER Coated Beads 240 MG Capsule Extended Release 24 Hour TAKE ONE CAPSULE BY MOUTH EVERY DAY ON AN EMPTY STOMACH Eliquis 5 MG Tablet TAKE ONE TABLET BY MOUTH TWICE A DAY Metoprolol Succinate ER 50 MG Tablet Extended Release 24 Hour TAKE ONE TABLET BY MOUTH EVERY DAY Medication List reviewed and reconciled with the patientTaking Spironolactone 25 MG Tablet 1 tablet Orally Taking Valsartan-hydroCHLOROthiazide 320-12.5 MG Tablet 1 tablet Orally Once a day Taking dilTIAZem HCl ER Coated Beads 240 MG Capsule Extended Release 24 Hour TAKE ONE CAPSULE BY MOUTH EVERY DAY ON AN EMPTY STOMACH Taking Eliquis 5 MG Tablet TAKE ONE TABLET BY MOUTH TWICE A DAY Taking Metoprolol Succinate ER 50 MG Tablet Extended Release 24 Hour TAKE ONE TABLET BY MOUTH EVERY DAY Medication List reviewed and reconciled with the patient * Allergies: P enicillin G Sodium: hives - Allergyyes[Allergies Verified] Objective: * Vitals: H t: 65, Wt: 182, BMI:30.28, BP:122/64, Wt-k.55. weight is down 2 pounds since 03-21-24. * P ast Orders: L ab:Lipid Panel (Order Date - 09/21/2024) (Collection Date & Time - 09/21/2024 07:00 AM) Value Reference Range Triglycerides 131 <150 - mg/dL Cholesterol 212 H <200 - mg/dL LDL Cholesterol Calculated 132 H <100 - mg/dL HDL Cholesterol 54 >40 - mg/dL L ab:Vitamin D 25-OH Total (Order Date - 09/21/2024) (Collection Date & Time - 09/21/2024 07:00 AM) Value Reference Range Vitamin D 25-OH Total 54.6 >30 - ng/mL L ab:Microalbumin, Random (Order Date - 09/21/2024) (Collection Date & Time - 09/21/2024 07:00 AM) Value Reference Range Creatinine Urine 94.12 - mg/dL Microalbumin Urine 30.0 - mg/L Microalbum Creatinine Ratio Ur 31.8 H <30 - ug/ mg cr L ab:Hemoglobin A1c (Order Date - 09/21/2024) (Collection Date & Time - 09/21/2024 07:00 AM) Value Reference Range Hemoglobin A1c % 6.0 <6.0 - % Estimated Average Glucose 126 - mg/dL L ab:Comprehensive [place]. Panel Fast (Order Date - 09/21/2024) (Collection Date & Time - 09/21/2024 07:00 AM) Value Reference Range Sodium 140 135-145 - mmol/L Bilirubin Total 0.5 0.0-1.0 - mg/dL Aspartate Amino Transferase 23 5-31 - U/L Alanine Aminotransferase 14 0-31 - U/L Total Protein 6.7 6.5-8.0 - g/dL Albumin Level 4.0 3.5-5.0 - g/dL Alkaline Phosphatase 75 39-117 - U/L Potassium 4.3 3.3-5.1 - mmol/L Chloride 106 96-108 - mmol/L Carbon Dioxide 27 22-29 - mmol/L Anion Gap 11 L 12-20 - Blood Urea Nitrogen 21 H 9-16 - mg/dL Creatinine 1.01 0.5-1.4 - mg/dL Estimated Glomerular Filt Rate 54 - Glucose Fasting 109 H 60-99 - mg/dL Calcium 9.8 8.4-10.2 - mg/dL * Examination: G eneral Examination: GENERAL APPEARANCE: w ell developed, well nourished, in no acute distress. HEAD: n ormocephalic, atraumatic. EYES: p upils equal, round, reactive to light and accommodation, sclera non-icteric. EARS: n ormal. ORAL CAVITY: m ucosa moist. THROAT: c lear. NECK/THYROID: n yvonne supple, full range of motion, no cervical lymphadenopathy, no bruits. SKIN: w arm and dry, no suspicious lesions. HEART: r egular rate and rhythm, S1, S2 normal, no murmurs.? LUNGS: c lear to auscultation bilaterally. BREASTS: d eclined. ABDOMEN: s oft, nontender, nondistended, bowel sounds present, normal, no organomegaly , no masses palpable. RECTAL EXAM: d eclined. FEMALE GENITOURINARY: d one by snuff maker. EXTREMITIES: n o clubbing, cyanosis, or edema. NEUROLOGIC: n onfocal, motor strength normal upper and lower extremities, sensory exam intact. Assessment: * Assessment: 1. A trial fibrillation with RVR - I48.91 (Primary) 2 . P rediabetes - R73.09 3 . E ssential hypertension - I10 4 . P ure hypercholesterolemia - E78.00 5 . V itamin D deficiency - E55.9 6 . D epression screening - Z13.31 Plan: * Treatment: 2. P rediabetes Notes: good a1c. continue with diet, no need for medication at this time 3. E ssential hypertension Continue Valsartan-hydroCHLOROthiazide Tablet, 320-12.5 MG, 1 tablet, Orally, Once a day; C ontinue dilTIAZem HCl ER Coated Beads Capsule Extended Release 24 Hour, 240 MG, TAKE ONE CAPSULE BY MOUTH EVERY DAY ON AN EMPTY STOMACH. Notes: well controlled, will continue current regiment 4. P ure hypercholesterolemia Notes: stable, will contiue to monitor diet 5. V itamin D deficiency Notes: stable, will continue to monitor 6. D epression screening Notes: negative screen * Procedure Codes: G 2211 Complex e/m visit add on * Follow Up: 6 Months * * Sign off status: Completed true * Provider: Patricia Baker MD Date: 0 09/28/2024 Generated for Genoi татьяна/Danie/eTransmitting on: 0 02/07/2025 07:24 AM EDT History and Physical Notes * HPI (History of Present Illness) Category Sub-Category Detail Notes Category Not es Symptom(s) patient is a 74 yo female here for review of recent labs and follow up of chronic issues. Depression Screening PHQ-9 Little inte rest or [...] way: Not at all Total Score: 0 SDOH Questions SDOH Questions In the past [...] Category Not es General Examination GENERAL APPEARANCE: well dev eloped, well nourished, in no acute distress HEAD: normocephalic, atrau matic EYES: pupils equal, round, reactive to light and accommodation, sclera non-icteric EARS: normal THROAT: clear NECK/THYROID: neck supple, full ra nge of motion, no cervical lymphadenopathy, no bruits HEART: regular rate and rhy thm, S1, S2 normal, no murmurs LUNGS: clear to auscultatio n bilaterally ABDOMEN: soft, nontender, non distended, bowel sounds present, normal, no organomegaly , no masses palpable NEUROLOGIC: nonfocal, motor stre ngth normal upper and lower extremities, sensory exam intact SKIN: warm and dry, no jeri picious lesions EXTREMITIES: no clubbing, cyanosi s, or edema BREASTS: declined RECTAL EXAM: declined FEMALE GENITOURINARY: done by snuff maker ORAL CAVITY: mucosa moist
--- OUTSIDE RECORDS SUMMARY | 2025-02-07 07:24 | XMS_ITS | Patient Health Record ---
Author Organization Alverto Baker MD Address [address] [place], [place] [id number] Care Team Providers Care Magazine Editor Name Role Phone Alverto Baker Primary Care [...] ff Reviewed date:09/24/2024 03:49:42 PM Interpretation: Performing Lab:[facility], [address] [place] [phone] Notes/Report: White Blood Count 6.7 4.8-10.8 X10*3/uL [...] NRBC Abs Auto 0.000 0.0-0.012 X10*3/uL Comprehensive [place]. Panel Fa st Reviewed date:09/21/2024 05:01:20 PM Interpretation: Performing Lab:[facility], [address] [place] [phone] Notes/Report: Sodium 140 135-145 mmol/L Potassium 4.3 [...] Panel Reviewed date:09/21/2024 05:02:26 PM Interpretation: Performing Lab:[facility], [address] [place] [phone] Notes/Report: Triglycerides 131 <150 mg/dL Desirable Triglyceride: [...] Total Reviewed date:09/21/2024 05:02:36 PM Interpretation: Performing Lab:[facility], [address] [place] [phone] Notes/Report: Vitamin D 25-OH Total 54.6 >30 [...] Random Reviewed date:09/21/2024 05:02:02 PM Interpretation: Performing Lab:[address] [phone] Notes/Report: Creatinine Urine 94.12 Microalbumin Urine 30.0 Microalbum/Creatinine Ratio Ur 31.8 <30 ug/mg cr Albumin/Creatinine Ratio Reference Ranges: Normal: < 30 ug/mg creatinine Microalbuminuria: 30 - 300 ug/mg creatinine Clinical Albuminuria: > 300 ug/mg creatinine Hemoglobin A1c Reviewed date:09/21/2024 05:02:12 PM Interpretation: Performing Lab:[address] [phone] Notes/Report: Hemoglobin A1c % 6.0 <6.0 % [...] average glucose, using the formula of the [id number] Average Glucose study (ADAG), Diabetes Care, Vol.31,#8, Dec. 2007 UA ClnCatch+Micro w/rflx Cul t Reviewed date:09/22/2024 05:11:58 PM Interpretation: Performing Lab:[facility], [address] [place] [phone] Notes/Report: Urine, Clean Catch Color Urine Yellow Appearance Urine Clear PH 6.0 5.0-9.0 Glucose Urine UA Negative Negative mg/dL Urine Blood Negative Negative Specific [place] - Urine 1.015 1.005-1.025 Urine Protein Negative [...] AM Interpretation: Performing Lab: Notes/Report: Value 112 Basic Metabolic Panel Reviewed date:07/19/2024 01:22:37 PM Interpretation: Performing Lab:[facility], [address] [place] [phone] Notes/Report: Sodium 139 135-145 mmol/L Potassium 4.3 [...] 60-115 mg/dL Calcium 9.7 8.4-10.2 mg/dL Hold Wenceslao Reviewed date:09/21/2024 05:00:39 PM Interpretation: Performing Lab:[facility], [address] [place] [phone] Notes/Report: Reji Billy See Note Specimen held untested for 24 hours; Call to request Chemistry testing. Urine Culture Reviewed date:09/22/2024 12:30:41 PM Interpretation: Performing Lab:[facility], [address] [place] [phone] Notes/Report: Urine Culture Report Result Urine Culture [...] Problem Status W/U Status Risk Notes Problem 520740408 Thrombocytopenia (D69.6) Active confirmed Problem 00420655 Vitamin D defici ency (E55.9) Active confirmed Problem 72175695 Essential hypert ension (I10) Active confirmed Problem 2054302 Prediabetes (R73.09) Active confirmed Problem Osteoporosis (69381149) Osteoporosis (M81.0) Active confirmed Problem 785073238 Irregular heart beat (I49.9) Active confirmed Problem 85985299 Aortic stenosis (Q25.3) Active confirmed Problem 867778542 Elevated LDL cholesterol level (E78.00) Active confirmed Problem 291289622 Pure hypercholesterolemia (E78.00) Active confirmed Problem 6678474878268 Bilateral tinnit us (H93.13) Active confirmed Problem 221334532 Osteopenia, unspecified location (M85.80) Active confirmed Problem 443065133 Body mass index (BMI) of 30.0-30.9 in adult (Z68.30) Active confirmed Problem 03195099 Inflamed gum (K05.10) Active confirmed Problem 499534862 Arthritis of carpometacarpal (CMC) joint of thumb (M18.10) Active confirmed Problem 323749467 Atrial flutter b y electrocardiogram (I48.92) Active confirmed Problem 603252213409867 Atrial fibrillat ion with RVR (I48.91) Active confirmed Problem 349112488 Age-related inci pient cataract, unspecified laterality (H25.099) Active confirmed Problem 69869000 Senile cataract, unspecified age-related cataract type, unspecified [...] Location Date Provider Diagnosis Alverto Baker MD [address] [place] [address] Drive [address] [place] [id number] 09/21/2024 Alverto Baker Essential hypertensi on I10 ; Pure hypercholesterolemia E78.00 ; Prediabetes R73.09 ; Vitamin D deficiency E55.9 and Thrombocytopenia D69.6 Alverto Baker MD [address] [place] [address] Drive [address] [place] [id number] 03/21/2024 Alverto Baker Prediabetes R73.09 ; Essential hypertension I10 and Encounter for immunization Z23 Alverto Baker MD [address] [place] [address] [address] [place] [id number] 09/28/2024 Alverto Baker Atrial fibrillation with RVR I48.91 ; Prediabetes R73.09 ; Essential hypertension I10 ; Pure hypercholesterolemia E78.00 ; Vitamin D deficiency E55.9 and Depression screening Z13.31 Alverto Baker MD [address] [place] [address] [address] [id number] 08/21/2024 Alverto Baker Assessments Encounter Date Diagnosis [...] Details Provider Name:Alverto nicholson, 03/30/2025 10:45:00 AM, [address] [place] [address], [address], [place], [place], [phone], Provider Name:Alverto nicholson, 09/24/2025 07:30:00 AM, [address], [address], [place], [place], [phone], Provider Name:Alverto Ball keniar, 10/01/2025 10:30:00 AM, [address], [address], [place], [place], [phone], Insurance Providers Payer Name Payer Address Payer Phone Subscriber Number Group Number Insured Name Patient Relationship to Insured Coverage Start Date Coverage End Date MEDICARE [facility] [address] [place] [address] [id number] RussCarlitoe Self - patient is the insured [employer] OF [facility] [address] [place] [phone] [id number] Kiara Solano Self - patient is the insured Medical (General) History Medical History History ICD Code 08/2013 - has appt in Mar for pap; will make appt for colonoscopy; 04/09/17 - not 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
== END 2025-02-07 07:21 | disposition home or self-care (01) ==
LOC: HO.MAMMO 07:20
PROVIDERS: Visit Provider Internal Medicine
DX: Z12.31 Encounter for screening mammogram for malignant neoplasm of breast (principal)
CPT/HCPCS: 77063; 77067

== ENCOUNTER → 2025-02-07 07:30 | Outpatient (BNV) | payer MEDICARE, SELFPAY | PROVIDERS: Visit Provider Internal Medicine | DX: Z12.31 Encounter for screening mammogram for malignant neoplasm of breast (principal) | CPT/HCPCS: 77063; 77067 ==